=== PATIENT | female | born 1975 | race African-American/Black ===

== ENCOUNTER 2016-04-25 10:32 | Outpatient (CLI) | payer BC, MEDICAID ==
--- NOTE | 2016-04-25 11:31 | Non Stress Test Report ---
Non Stress Test Datetime Report Generated by CPN: 04/25/2016 11:31 DEMOGRAPHIC EGA NST: 33.1 INDICATION Indication for Study: Ordered by Provider; Other MONITORING Monitor Explained: Monitor Explained; Test Explained; Patient Verbalized Understanding Time on Monitor: 04/25/2016 10:36 Time off Monitor: 04/25/2016 11:29 NST Duration: 53 NST INTERVENTIONS NST Interventions: PO Hydration; Reposition Patient Physician Notified NST: Caroline Olivares, CNM BABY A: [id number] BABY A Movement : Present Contraction Frequency : none FHR Baseline : 135 Accelerations : 15X15 Decelerations : None Variability : Moderate 6-25bpm NST Review: Meets Criteria for Reactive NST NST Review and Verified By : Luisito Atkinson RN NST Results: Reactive NST REPORT Report Trigger: Send Report
--- NOTE | 2016-04-26 10:14 | Antepartum Discharge Summary ---
Antepartum DC Datetime Report Generated by CPN: 04/26/2016 10:14 Diet: Regular (04/25/2016 11:51:HI Monahan) Activity: Normal Activity (04/25/2016 11:51:HI Monahan) Instructions Given To: patient (04/25/2016 11:51:HI Monahan) Instructions Understood: Patient Verbalized Understanding; Support Person Verbalized Understanding (04/25/2016 11:51:HI Monahan) Referrals: None (04/25/2016 11:51:HI Monahan) Educational Materials- Other: care notes reviewed and signed for kick counts. Reviewed importance of drinking atleast 3 to 4 [place] pitchers of water daily, frequent small meals . Note for worl given (04/25/2016 11:51:HI Monhaan) Discharged AMA: No (04/25/2016 11:51:HI Monahan) Discharge Date/Time: 04/25/2016 11:38 (04/25/2016 11:51:HI Monahan) Discharged To: Home (04/25/2016 11:51:HI Monahan) Discharge Provider Name: Lester Olivares (04/25/2016 11:51:HI Monahan) Accompanied By: self (04/25/2016 11:51:HI Monahan) Discharge Method: Ambulatory (04/25/2016 11:51:HI Monahan) Condition: Stable (04/25/2016 11:51:HI Monahan) Follow Up With: [facility] (04/25/2016 11:51:Henrietta Camp, RNC) Follow Up On: As Scheduled (04/25/2016 11:51:HI Monahan)
--- NOTE | 2016-04-26 10:15 | L&D Discharge Summary ---
OB Discharge Summary Datetime Report Generated by CPN: 04/26/2016 10:15 DISCHARGE DIAGNOSIS Diagnosis/Symptoms: Reassuring Surveillance - Annotate Details Diagnoses/Symptoms Other: IUP 33.1 weeks AMA with polyhydramnious reactive NST Gestation: 33.1 Number of Babies in Womb: 1 Parity: 4 DIET/ACTIVITY/RESTRICTIONS Diet: Regular Activity: Normal Activity TEACHING/INSTRUCTIONS/REFERRALS Instructions Given To: patient Instructions Understood: Patient Verbalized Understanding; Support Person Verbalized Understanding Referrals: None Educational Materials- Other: care notes reviewed and signed for kick counts. Reviewed importance of drinking atleast 3 to 4 [place] pitchers of water daily, frequent small meals . Note for worl given DISCHARGE INFORMATION Discharged AMA: No Discharge Date/Time: 04/25/2016 11:38 Discharged To: Home Discharge Provider Name: Marshall, J Accompanied By: self Discharge Method: Ambulatory Condition: Stable FOLLOW UP INFORMATION Follow Up With: [facility] Follow Up On: As Scheduled Follow Up Phone Number: [facility] -
--- NOTE | 2016-04-26 10:15 | L&D General Admission ---
General Admit Datetime Report Generated by CPN: 04/26/2016 10:14 Para: 4 (04/25/2016 11:51:HI Monahan) Baby, Number in Womb: 1 (04/25/2016 11:51:HI Monahan) Height (in): 65 (04/25/2016 10:56:QS system process)
--- NOTE | 2016-04-26 10:22 | L&D Flow Sheet ---
LD Flowsheet Datetime Report Generated by CPN: 04/26/2016 10:22 Datetime: 04/25/2016 11:32 Patient Care Comments: See Discharge Summary (Henrietta Camp, RNC) Patient Care Comments: EFM off for discharge to home. (Henrietta Camp, RNC) Datetime: 04/25/2016 11:30 Communication Communication: Provider Orders Received; Report Given to @ J Olivares CNM (Henrietta Camp, RNC) Communication Comments: report of moderate variability, reactive nst and movment stated per pt. Discharge orders received (Henrietta Camp, RNC) Datetime: 04/25/2016 11:04 Uterine Activity Monitor Interventions for UA: [place] Adjusted (Henrietta Camp, RNC) Assessment A Monitor Interventions for FHR: Ultrasound Adjusted (Henrietta Camp, RNC) Patient Care Patient Position/Activity: HOB Lowered; Right Extreme (Henrietta Camp, RNC) Datetime: 04/25/2016 10:41 Vital Signs NBP Sys/Estrella/Mean (mmHg): 122 (QS system process) : 80 (QS system process) : 96 (QS system process) Pulse: 88 (QS system process) LaborFlag: OB Triage (QS system process) Datetime: 03/29/2016 14:10 LaborFlag: OB Triage (QS system process) Datetime: 03/29/2016 13:55 LaborFlag: OB Triage (QS system process) Datetime: 03/29/2016 13:40 LaborFlag: OB Triage (QS system process) Datetime: 03/29/2016 13:25 LaborFlag: OB Triage (QS system process) Datetime: 03/29/2016 13:10 LaborFlag: OB Triage (QS system process) Datetime: 03/29/2016 13:01 LaborFlag: OB Triage (QS system process) Datetime: 03/29/2016 12:55 LaborFlag: OB Triage (QS system process) Datetime: 03/29/2016 12:40 LaborFlag: OB Triage (QS system process)
--- NOTE | 2016-04-27 06:11 | L&D General Admission ---
General Admit Datetime Report Generated by CPN: 04/27/2016 06:00 INFORMATION Patient Age: 40 (02/27/2016 11:10:QS system process) EDC: 06/12/2016 00:00 (02/27/2016 11:14:Rajni Henry RN) : 10 (02/27/2016 11:14:Rajni Henry RN) Para: 4 (04/25/2016 11:51:HI Monahan) Term: 4 (02/27/2016 11:14:Rajni Henry RN) : 0 (02/27/2016 11:14:Rajni Henry RN) Spontaneous Abortions: 0 (02/27/2016 11:14:Rajni Henry RN) Induced Abortions: 5 (02/27/2016 11:14:Rajni Henry RN) Livin (02/27/2016 11:14:Rajni Henry RN) Cesareans: 0 (02/27/2016 11:14:Rajni Henry RN) VBACs: 0 (02/27/2016 11:14:Rajni Henry RN) Ectopic: 0 (02/27/2016 11:14:Rajni Henry RN) Multiple Births: 0 (02/27/2016 11:14:Rajni Henry RN) Baby, Number in Womb: 1 (04/25/2016 11:51:HI Monahan) CARE Primary Child Care Attendant School: [employer] [facility] (02/27/2016 11:14:Rajni Henry RN) Height (in): 65 (04/25/2016 10:56:QS system process) ALLERGIES Medication Allergy: No (02/27/2016 11:14:Rajni Henry RN) Medication Allergies: No Known Allergies (04/25/2016) (04/25/2016 10:56:QS system process) Latex Allergy: No Latex Allergies (02/27/2016 11:14:Rajni Henry RN) Food Allergies: NONE (02/27/2016 11:14:Sagrario Garcia RN) Environmental Allergies: NONE (02/27/2016 11:14:Sagrario Garcia RN) COMMUNICATION Primary Language: Ugandan (02/27/2016 11:14:Rajni Henry RN) Medical Tx Preferred Language: Ugandan (02/27/2016 11:14:Rajni Henry RN) Communication Barrier(s): None (02/27/2016 11:14:Sagrario Garcia RN) DEMOGRAPHICS Address: [address] [place] [phone] (02/27/2016 11:10:QS system process) Zipcode: [phone] (02/27/2016 11:10:QS system process) Home (02/27/2016 11:10:QS system process) Work (04/25/2016 10:33:QS system process) SSN: [id number] (02/27/2016 11:10:QS system process) Next of Kin Name: GANESH HUMPHRIES (02/27/2016 11:10:QS system process) Next of Kin (04/25/2016 10:33:QS system process) Next of Kin Relationship: [place] (02/27/2016 11:10:QS system process) Date of : 1975 (02/27/2016 11:10:QS system process) Marital Status: (04/25/2016 10:33:QS system process) Sex: Female (02/27/2016 11:10:QS system process) Race: (02/27/2016 11:10:QS system process) Ethnicity: Non- or (02/27/2016 11:10:QS system process) Orthodoxy: Pentecostal (02/27/2016 11:10:QS system process) LABS Hemoglobin: 10.9 L (04/11/2016 16:15:QS system process) Hematocrit: 32.8 L (04/11/2016 16:15:QS system process) MCV: 82 (04/11/2016 16:15:QS system process) OB/PREVIOUS HISTORY Current Procedures: Ultrasound (02/27/2016 11:14:Rajni Henry RN) History of Previous : No (02/27/2016 11:14:Rajni Henry RN) History of Gestational Diabetes: No (02/27/2016 11:14:Rajni Henry RN) History of PIH: No (02/27/2016 11:14:Rajni Henry RN) History of Incompetent Cervix: No (02/27/2016 11:14:Rajni Henry RN) History of Placenta Previa/Abrup: No (02/27/2016 11:14:Rajni Henry RN) History of Macrosomia: No (02/27/2016 11:14:Rajni Henry RN) History of IUGR: No (02/27/2016 11:14:Rajni Henry RN) History of Hemorrhage: No (02/27/2016 11:14:Rajni Henry RN) History of Loss/Stillborn: No (02/27/2016 11:14:Rajni Henry RN) History of : No (02/27/2016 11:14:Rajni Henry RN) History of D (Rh) Sensitization: No (02/27/2016 11:14:Rajni Henry RN) History Recurrent Loss/Stillborn: No (02/27/2016 11:14:Rajni Henry RN) History Depression/PP Depression: Yes (02/27/2016 11:14:Rajni Henry RN) History of Uterine Anomaly/BETINA: No (02/27/2016 11:14:Rajni Henry RN) History of Infertility: No (02/27/2016 11:14:Rajni Henry RN) History of ART Treatment: No (02/27/2016 11:14:Rajni Henry RN) History of BETINA: No (02/27/2016 11:14:Rajni Henry RN) MEDICAL HISTORY Med Hx Diabetes: No (02/27/2016 11:14:Rajni Henry RN) Med Hx Hypertension: Yes (02/27/2016 11:14:Rajni Henry RN) Med Hx Heart Disease: No (02/27/2016 11:14:Rajni Henry RN) Med Hx Autoimmune Disorder: No (02/27/2016 11:14:Rajni Henry RN) Med Hx Kidney Disease/UTI: No (02/27/2016 11:14:Rajni Henry RN) Med Hx Neurologic/Epilepsy: No (02/27/2016 11:14:Rajni Henry RN) Med Hx Psychiatric Disorders: No (02/27/2016 11:14:Rajni Henry RN) Med Hx Hepatitis/Liver Disease: No (02/27/2016 11:14:Rajni Henry RN) Med Hx Varicosities/Phlebitis: No (02/27/2016 11:14:Rajni Henry RN) Med Hx Thyroid Dysfunction: No (02/27/2016 11:14:Rajni Henry RN) Med Hx Trauma/Violence: No (02/27/2016 11:14:Rajni Henry RN) Med Hx Blood Transfusion: No (02/27/2016 11:14:Rajni Henry RN) Med Hx Pulmonary (Asthma,TB): No (02/27/2016 11:14:Rajni Henry RN) Med Hx Breast: No (02/27/2016 11:14:Rajni Henry RN) 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 (02/27/2016 11:14:Rajni Henry RN) Med Hx Hospitalization/Surgery: Yes (02/27/2016 11:14:Rajni Henry RN) Med Hx Anesthetic Complications: No (02/27/2016 11:14:Rajni Henry RN) Med Hx Abnormal Pap Smear: No (02/27/2016 11:14:Rajni Henry RN) Other Medical Diseases: No (02/27/2016 11:14:Rajni Henry RN) Med Hx Significant Family Hx: No (02/27/2016 11:14:Rajni Henry RN) Details of Med/Surg Hx: HTN- prior to , depression periodically, vaginal mesh implant 2008, hospitalized with childbirth, gallbladder removal 2013 (02/27/2016 11:14:Rajni Henry RN) INFECTIOUS HISTORY Inf Hx Gonorrhea: Yes (02/27/2016 11:14:Rajni Henry RN) Inf Hx Chlamydia: No (02/27/2016 11:14:Rajni Henry RN) Inf Hx Syphilis: No (02/27/2016 11:14:Rajni Henry RN) Inf Hx HIV/AIDS: No (02/27/2016 11:14:Rajni Henry RN) Inf Hx Human Papilloma Virus: No (02/27/2016 11:14:Rajni Henry RN) Inf Hx Pt/Partner Genital Herpes: No (02/27/2016 11:14:Rajni Henry RN) Inf Hx Tuberculosis/Exposure: No (02/27/2016 11:14:Rajni Henry RN) Inf Hx Hepatitis B,C: No (02/27/2016 11:14:Rajni Henry RN) Inf Hx Rash or Viral Illness: No (02/27/2016 11:14:Rajni Henry RN) Details of Infectious Hx: 2015- (02/27/2016 11:14:Rajni Henry RN) GENETIC HISTORY Gen Hx Age >=35 at SAJI: No (02/27/2016 11:14:Rajni Henry RN) Gen Hx Thalassemia: No (02/27/2016 11:14:Rajni Henry RN) Gen Hx Congenital Heart Defect: No (02/27/2016 11:14:Rajni Henry RN) Gen Hx Neural Tube Defect: No (02/27/2016 11:14:Rajni Henry RN) Gen Hx Down's Syndrome: Yes (02/27/2016 11:14:Rajni Henry RN) Gen Hx Rafat-Sachs: No (02/27/2016 11:14:Rajni Henry RN) Gen Hx Meena: No (02/27/2016 11:14:Rajni Henry RN) Gen Hx Familial Dysautonomia: No (02/27/2016 11:14:Rajni Henry RN) Gen Hx Sickle Cell Disease/Trait: No (02/27/2016 11:14:Rajni Henry RN) Gen Hx Hemophilia/Blood Disorder: No (02/27/2016 11:14:Rajni Henry RN) Gen Hx Muscular Dystrophy: No (02/27/2016 11:14:Rajni Henry RN) Gen Hx Cystic Fibrosis: No (02/27/2016 11:14:Rajni Henry RN) Gen Hx Huntingtons Chorea: No (02/27/2016 11:14:Rajni Henry RN) Gen Hx Mental Retardation/Autism: No (02/27/2016 11:14:Rajni Henry RN) Gen Hx Tested for Fragile X: No (02/27/2016 11:14:Rajni Henry RN) Gen Hx Other Inher/Chromosomal: No (02/27/2016 11:14:Rajni Henry RN) Gen Hx Maternal Metabolic DO: No (02/27/2016 11:14:Rajni Henry RN) Gen Hx Pt Father or FOB Defect: No (02/27/2016 11:14:Rajni Henry RN) Gen Hx Other Genetic History: No (02/27/2016 11:14:Rajni Henry RN) Gen Hx Drugs/Meds since LMP: No (02/27/2016 11:14:Rajni Henry RN) Details of Genetic History: pt sister (02/27/2016 11:14:Rajni Henry RN)
--- NOTE | 2016-04-27 06:11 | L&D Current Admission ---
Current Admit Datetime Report Generated by CPN: 04/27/2016 06:00 ADMISSION INFORMATION Chief Complaint: Headache; Visual Disturbances (03/29/2016 12:40:Sagrario Garcia, MAX)
--- NOTE | 2016-04-28 06:10 | L&D Current Admission ---
Current Admit Datetime Report Generated by CPN: 04/28/2016 06:00 ADMISSION INFORMATION Chief Complaint: Headache; Visual Disturbances (03/29/2016 12:40:Sagrario Garcia, MAX)
--- NOTE | 2016-04-28 06:10 | L&D General Admission ---
General Admit Datetime Report Generated by CPN: 04/28/2016 06:00 INFORMATION Patient Age: 40 (02/27/2016 11:10:QS system process) EDC: 06/12/2016 00:00 (02/27/2016 11:14:Rajni Henry RN) : 10 (02/27/2016 11:14:Rajni Henry RN) Para: 4 (04/25/2016 11:51:HI Monahan) Term: 4 (02/27/2016 11:14:Rajni Henry RN) : 0 (02/27/2016 11:14:Rajni Henry RN) Spontaneous Abortions: 0 (02/27/2016 11:14:Rajni Henry RN) Induced Abortions: 5 (02/27/2016 11:14:Rajni Henry RN) Livin (02/27/2016 11:14:Rajni Henry RN) Cesareans: 0 (02/27/2016 11:14:Rajni Henry RN) VBACs: 0 (02/27/2016 11:14:Rajni Henry RN) Ectopic: 0 (02/27/2016 11:14:Rajni Henry RN) Multiple Births: 0 (02/27/2016 11:14:Rajni Henry RN) Baby, Number in Womb: 1 (04/25/2016 11:51:HI Monahan) CARE Primary Plan Consultant: [employer] [facility] (02/27/2016 11:14:Rajni Henry RN) Height (in): 65 (04/25/2016 10:56:QS system process) ALLERGIES Medication Allergy: No (02/27/2016 11:14:Rajni Henry RN) Medication Allergies: No Known Allergies (04/25/2016) (04/25/2016 10:56:QS system process) Latex Allergy: No Latex Allergies (02/27/2016 11:14:Rajni Henry RN) Food Allergies: NONE (02/27/2016 11:14:Sagrario Garcia RN) Environmental Allergies: NONE (02/27/2016 11:14:Sagrario Garcia RN) COMMUNICATION Primary Language: Filipino (02/27/2016 11:14:Rajni Henry RN) Medical Tx Preferred Language: Filipino (02/27/2016 11:14:Rajni Henry RN) Communication Barrier(s): None (02/27/2016 11:14:Sagrario Garcia RN) DEMOGRAPHICS Address: [address] [place] [phone] (02/27/2016 11:10:QS system process) Zipcode: [phone] (02/27/2016 11:10:QS system process) Home (02/27/2016 11:10:QS system process) Work (04/25/2016 10:33:QS system process) SSN: [id number] (02/27/2016 11:10:QS system process) Next of Kin Name: GANESH HUMPHRIES (02/27/2016 11:10:QS system process) Next of Kin (04/25/2016 10:33:QS system process) Next of Kin Relationship: [place] (02/27/2016 11:10:QS system process) Date of : 1975 (02/27/2016 11:10:QS system process) Marital Status: (04/25/2016 10:33:QS system process) Sex: Female (02/27/2016 11:10:QS system process) Race: (02/27/2016 11:10:QS system process) Ethnicity: Non- or (02/27/2016 11:10:QS system process) Restorationist: Taoist (02/27/2016 11:10:QS system process) LABS Hemoglobin: 10.9 L (04/11/2016 16:15:QS system process) Hematocrit: 32.8 L (04/11/2016 16:15:QS system process) MCV: 82 (04/11/2016 16:15:QS system process) OB/PREVIOUS HISTORY Current Procedures: Ultrasound (02/27/2016 11:14:Rajni Henry RN) History of Previous : No (02/27/2016 11:14:Rajni Henry RN) History of Gestational Diabetes: No (02/27/2016 11:14:Rajni Henry RN) History of PIH: No (02/27/2016 11:14:Rajni Henry RN) History of Incompetent Cervix: No (02/27/2016 11:14:Rajni Henry RN) History of Placenta Previa/Abrup: No (02/27/2016 11:14:Rajni Henry RN) History of Macrosomia: No (02/27/2016 11:14:Rajni Henry RN) History of IUGR: No (02/27/2016 11:14:Rajni Henry RN) History of Hemorrhage: No (02/27/2016 11:14:Rajni Henry RN) History of Loss/Stillborn: No (02/27/2016 11:14:Rajni Henry RN) History of : No (02/27/2016 11:14:Rajni Henry RN) History of D (Rh) Sensitization: No (02/27/2016 11:14:Rajni Henry RN) History Recurrent Loss/Stillborn: No (02/27/2016 11:14:Rajni Henry RN) History Depression/PP Depression: Yes (02/27/2016 11:14:Rajni Henry RN) History of Uterine Anomaly/BETINA: No (02/27/2016 11:14:Rajni Henry RN) History of Infertility: No (02/27/2016 11:14:Rajni Henry RN) History of ART Treatment: No (02/27/2016 11:14:Rajni Henry RN) History of BETINA: No (02/27/2016 11:14:Rajni Henry RN) MEDICAL HISTORY Med Hx Diabetes: No (02/27/2016 11:14:Rajni Henry RN) Med Hx Hypertension: Yes (02/27/2016 11:14:Rajni Henry RN) Med Hx Heart Disease: No (02/27/2016 11:14:Rajni Henry RN) Med Hx Autoimmune Disorder: No (02/27/2016 11:14:Rajni Henry RN) Med Hx Kidney Disease/UTI: No (02/27/2016 11:14:Rajni Henry RN) Med Hx Neurologic/Epilepsy: No (02/27/2016 11:14:Rajni Henyr RN) Med Hx Psychiatric Disorders: No (02/27/2016 11:14:Rajni Henry RN) Med Hx Hepatitis/Liver Disease: No (02/27/2016 11:14:Rajni Henry RN) Med Hx Varicosities/Phlebitis: No (02/27/2016 11:14:Rajni Henry RN) Med Hx Thyroid Dysfunction: No (02/27/2016 11:14:Rajni Henry RN) Med Hx Trauma/Violence: No (02/27/2016 11:14:Rajni Henry RN) Med Hx Blood Transfusion: No (02/27/2016 11:14:Rajni Henry RN) Med Hx Pulmonary (Asthma,TB): No (02/27/2016 11:14:Rajni Henry RN) Med Hx Breast: No (02/27/2016 11:14:Rajni Henry RN) 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 (02/27/2016 11:14:Rajni Henry RN) Med Hx Hospitalization/Surgery: Yes (02/27/2016 11:14:Rajni Henry RN) Med Hx Anesthetic Complications: No (02/27/2016 11:14:Rajni Henry RN) Med Hx Abnormal Pap Smear: No (02/27/2016 11:14:Rajni Henry RN) Other Medical Diseases: No (02/27/2016 11:14:Rajni Henry RN) Med Hx Significant Family Hx: No (02/27/2016 11:14:Rajni Henry RN) Details of Med/Surg Hx: HTN- prior to , depression periodically, vaginal mesh implant 2008, hospitalized with childbirth, gallbladder removal 2013 (02/27/2016 11:14:Rajni Henry RN) INFECTIOUS HISTORY Inf Hx Gonorrhea: Yes (02/27/2016 11:14:Rajni Henry RN) Inf Hx Chlamydia: No (02/27/2016 11:14:Rajni Henry RN) Inf Hx Syphilis: No (02/27/2016 11:14:Rajni Henry RN) Inf Hx HIV/AIDS: No (02/27/2016 11:14:Rajni Henry RN) Inf Hx Human Papilloma Virus: No (02/27/2016 11:14:Rajni Henry RN) Inf Hx Pt/Partner Genital Herpes: No (02/27/2016 11:14:Rajni Henry RN) Inf Hx Tuberculosis/Exposure: No (02/27/2016 11:14:Rajni Henry RN) Inf Hx Hepatitis B,C: No (02/27/2016 11:14:Rajni Henry RN) Inf Hx Rash or Viral Illness: No (02/27/2016 11:14:Rajni Henry RN) Details of Infectious Hx: 2015- (02/27/2016 11:14:Rajni Henry RN) GENETIC HISTORY Gen Hx Age >=35 at SAJI: No (02/27/2016 11:14:Rajni Henry RN) Gen Hx Thalassemia: No (02/27/2016 11:14:Rajni Henry RN) Gen Hx Congenital Heart Defect: No (02/27/2016 11:14:Rajni Henry RN) Gen Hx Neural Tube Defect: No (02/27/2016 11:14:Rajni Henry RN) Gen Hx Down's Syndrome: Yes (02/27/2016 11:14:Rajni Henry RN) Gen Hx Rafat-Sachs: No (02/27/2016 11:14:Rajni Henry RN) Gen Hx Meena: No (02/27/2016 11:14:Rajni Henry RN) Gen Hx Familial Dysautonomia: No (02/27/2016 11:14:Rajni Henry RN) Gen Hx Sickle Cell Disease/Trait: No (02/27/2016 11:14:Rajni Henry RN) Gen Hx Hemophilia/Blood Disorder: No (02/27/2016 11:14:Rajni Henry RN) Gen Hx Muscular Dystrophy: No (02/27/2016 11:14:Rajni Henry RN) Gen Hx Cystic Fibrosis: No (02/27/2016 11:14:Rajni Henry RN) Gen Hx Huntingtons Chorea: No (02/27/2016 11:14:Rajni Henry RN) Gen Hx Mental Retardation/Autism: No (02/27/2016 11:14:Rajni Henry RN) Gen Hx Tested for Fragile X: No (02/27/2016 11:14:Rajni Henry RN) Gen Hx Other Inher/Chromosomal: No (02/27/2016 11:14:Rajni Henry RN) Gen Hx Maternal Metabolic DO: No (02/27/2016 11:14:Rajni Henry RN) Gen Hx Pt Father or FOB Defect: No (02/27/2016 11:14:Rajni Henry RN) Gen Hx Other Genetic History: No (02/27/2016 11:14:Rajni Henry RN) Gen Hx Drugs/Meds since LMP: No (02/27/2016 11:14:Rajni Henry RN) Details of Genetic History: pt sister (02/27/2016 11:14:Rajni Henry RN)
--- NOTE | 2016-04-29 06:10 | L&D Current Admission ---
Current Admit Datetime Report Generated by CPN: 04/29/2016 06:00 ADMISSION INFORMATION Chief Complaint: Headache; Visual Disturbances (03/29/2016 12:40:Sagrario Garcia, MAX)
--- NOTE | 2016-04-29 06:10 | L&D General Admission ---
General Admit Datetime Report Generated by CPN: 04/29/2016 06:00 INFORMATION Patient Age: 40 (02/27/2016 11:10:QS system process) EDC: 06/12/2016 00:00 (02/27/2016 11:14:Rajni Henry RN) : 10 (02/27/2016 11:14:Rajni Henry RN) Para: 4 (04/25/2016 11:51:HI Monahan) Term: 4 (02/27/2016 11:14:Rajni Henry RN) : 0 (02/27/2016 11:14:Rajni Henry RN) Spontaneous Abortions: 0 (02/27/2016 11:14:Rajni Hnery RN) Induced Abortions: 5 (02/27/2016 11:14:Rajni Henry RN) Livin (02/27/2016 11:14:Rajni Henry RN) Cesareans: 0 (02/27/2016 11:14:Rajni Henry RN) VBACs: 0 (02/27/2016 11:14:Rajni Henry RN) Ectopic: 0 (02/27/2016 11:14:Rajni Henry RN) Multiple Births: 0 (02/27/2016 11:14:Rajni Henry RN) Baby, Number in Womb: 1 (04/25/2016 11:51:HI Monahan) CARE Primary Chef German: [employer] [facility] (02/27/2016 11:14:Rajni Henry RN) Height (in): 65 (04/25/2016 10:56:QS system process) ALLERGIES Medication Allergy: No (02/27/2016 11:14:Rajni Henry RN) Medication Allergies: No Known Allergies (04/25/2016) (04/25/2016 10:56:QS system process) Latex Allergy: No Latex Allergies (02/27/2016 11:14:Rajni Henry RN) Food Allergies: NONE (02/27/2016 11:14:Sagrario Garcia RN) Environmental Allergies: NONE (02/27/2016 11:14:Sagrario Garcia RN) COMMUNICATION Primary Language: Sri Lankan (02/27/2016 11:14:Rajni Henry RN) Medical Tx Preferred Language: Sri Lankan (02/27/2016 11:14:Rajni Henry RN) Communication Barrier(s): None (02/27/2016 11:14:Sagrario Garcia RN) DEMOGRAPHICS Address: [address] [place] [phone] (02/27/2016 11:10:QS system process) Zipcode: [phone] (02/27/2016 11:10:QS system process) Home (02/27/2016 11:10:QS system process) Work (04/25/2016 10:33:QS system process) SSN: [id number] (02/27/2016 11:10:QS system process) Next of Kin Name: GANESH HUMPHRIES (02/27/2016 11:10:QS system process) Next of Kin (04/25/2016 10:33:QS system process) Next of Kin Relationship: MO (02/27/2016 11:10:QS system process) Date of : 1975 (02/27/2016 11:10:QS system process) Marital Status: (04/25/2016 10:33:QS system process) Sex: Female (02/27/2016 11:10:QS system process) Race: (02/27/2016 11:10:QS system process) Ethnicity: Non- or (02/27/2016 11:10:QS system process) Church: Buddhism (02/27/2016 11:10:QS system process) LABS Hemoglobin: 10.9 L (04/11/2016 16:15:QS system process) Hematocrit: 32.8 L (04/11/2016 16:15:QS system process) MCV: 82 (04/11/2016 16:15:QS system process) OB/PREVIOUS HISTORY Current Procedures: Ultrasound (02/27/2016 11:14:Rajni Henry RN) History of Previous : No (02/27/2016 11:14:Rajni Henry RN) History of Gestational Diabetes: No (02/27/2016 11:14:Rajni Henry RN) History of PIH: No (02/27/2016 11:14:Rajni Henry RN) History of Incompetent Cervix: No (02/27/2016 11:14:Rajni Henry RN) History of Placenta Previa/Abrup: No (02/27/2016 11:14:Rajni Henry RN) History of Macrosomia: No (02/27/2016 11:14:Rajni Henry RN) History of IUGR: No (02/27/2016 11:14:Rajni Henry RN) History of Hemorrhage: No (02/27/2016 11:14:Rajni Henry RN) History of Loss/Stillborn: No (02/27/2016 11:14:Rajni Henry RN) History of : No (02/27/2016 11:14:Rajni Henry RN) History of D (Rh) Sensitization: No (02/27/2016 11:14:Rajni Henry RN) History Recurrent Loss/Stillborn: No (02/27/2016 11:14:Rajni Henry RN) History Depression/PP Depression: Yes (02/27/2016 11:14:Rajni Henry RN) History of Uterine Anomaly/BETINA: No (02/27/2016 11:14:Rajni Henry RN) History of Infertility: No (02/27/2016 11:14:Rajni Henry RN) History of ART Treatment: No (02/27/2016 11:14:Rajni eHnry RN) History of BETINA: No (02/27/2016 11:14:Rajni Henry RN) MEDICAL HISTORY Med Hx Diabetes: No (02/27/2016 11:14:Rajni Henry RN) Med Hx Hypertension: Yes (02/27/2016 11:14:Rajni Henry RN) Med Hx Heart Disease: No (02/27/2016 11:14:Rajni Henry RN) Med Hx Autoimmune Disorder: No (02/27/2016 11:14:Rajni Henry RN) Med Hx Kidney Disease/UTI: No (02/27/2016 11:14:Rajni Henry RN) Med Hx Neurologic/Epilepsy: No (02/27/2016 11:14:Rajni Henry RN) Med Hx Psychiatric Disorders: No (02/27/2016 11:14:Rajni Henry RN) Med Hx Hepatitis/Liver Disease: No (02/27/2016 11:14:Rajni Henry RN) Med Hx Varicosities/Phlebitis: No (02/27/2016 11:14:Rajni Henry RN) Med Hx Thyroid Dysfunction: No (02/27/2016 11:14:Rajni Henry RN) Med Hx Trauma/Violence: No (02/27/2016 11:14:Rajni Henry RN) Med Hx Blood Transfusion: No (02/27/2016 11:14:Rajni Henry RN) Med Hx Pulmonary (Asthma,TB): No (02/27/2016 11:14:Rajni Henry RN) Med Hx Breast: No (02/27/2016 11:14:Rajni Henry RN) 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 (02/27/2016 11:14:Rajni Henry RN) Med Hx Hospitalization/Surgery: Yes (02/27/2016 11:14:Rajni Henry RN) Med Hx Anesthetic Complications: No (02/27/2016 11:14:Rajni Henry RN) Med Hx Abnormal Pap Smear: No (02/27/2016 11:14:Rajni Henry RN) Other Medical Diseases: No (02/27/2016 11:14:Rajni Henry RN) Med Hx Significant Family Hx: No (02/27/2016 11:14:Rajni Henry RN) Details of Med/Surg Hx: HTN- prior to , depression periodically, vaginal mesh implant 2008, hospitalized with childbirth, gallbladder removal 2013 (02/27/2016 11:14:Rajni Henry RN) INFECTIOUS HISTORY Inf Hx Gonorrhea: Yes (02/27/2016 11:14:Rajni Henry RN) Inf Hx Chlamydia: No (02/27/2016 11:14:Rajni Henry RN) Inf Hx Syphilis: No (02/27/2016 11:14:Rajni Henry RN) Inf Hx HIV/AIDS: No (02/27/2016 11:14:Rajni Henry RN) Inf Hx Human Papilloma Virus: No (02/27/2016 11:14:Rajni Henry RN) Inf Hx Pt/Partner Genital Herpes: No (02/27/2016 11:14:Rajni Henry RN) Inf Hx Tuberculosis/Exposure: No (02/27/2016 11:14:Rajni Henry RN) Inf Hx Hepatitis B,C: No (02/27/2016 11:14:Rajni Henry RN) Inf Hx Rash or Viral Illness: No (02/27/2016 11:14:Rajni Henry RN) Details of Infectious Hx: 2015- (02/27/2016 11:14:Rajni Henry RN) GENETIC HISTORY Gen Hx Age >=35 at SAJI: No (02/27/2016 11:14:Rajni Henry RN) Gen Hx Thalassemia: No (02/27/2016 11:14:Rajni Henry RN) Gen Hx Congenital Heart Defect: No (02/27/2016 11:14:Rajni Henry RN) Gen Hx Neural Tube Defect: No (02/27/2016 11:14:Rajni Henry RN) Gen Hx Down's Syndrome: Yes (02/27/2016 11:14:Rajni Henry RN) Gen Hx Rafat-Sachs: No (02/27/2016 11:14:Rajni Henry RN) Gen Hx Meena: No (02/27/2016 11:14:Rajni Henry RN) Gen Hx Familial Dysautonomia: No (02/27/2016 11:14:Rajni Henry RN) Gen Hx Sickle Cell Disease/Trait: No (02/27/2016 11:14:Rajni Henry RN) Gen Hx Hemophilia/Blood Disorder: No (02/27/2016 11:14:Rajni Henry RN) Gen Hx Muscular Dystrophy: No (02/27/2016 11:14:Rajni Henry RN) Gen Hx Cystic Fibrosis: No (02/27/2016 11:14:Rajni Henry RN) Gen Hx Huntingtons Chorea: No (02/27/2016 11:14:Rajni Henry RN) Gen Hx Mental Retardation/Autism: No (02/27/2016 11:14:Rajni Henry RN) Gen Hx Tested for Fragile X: No (02/27/2016 11:14:Rajni Henry RN) Gen Hx Other Inher/Chromosomal: No (02/27/2016 11:14:Rajni Henry RN) Gen Hx Maternal Metabolic DO: No (02/27/2016 11:14:Rajni Henry RN) Gen Hx Pt Father or FOB Defect: No (02/27/2016 11:14:Rajni Henry RN) Gen Hx Other Genetic History: No (02/27/2016 11:14:Rajni Henry RN) Gen Hx Drugs/Meds since LMP: No (02/27/2016 11:14:Rajni Henry RN) Details of Genetic History: pt sister (02/27/2016 11:14:Rajni Henry RN)
--- NOTE | 2016-04-30 06:12 | L&D Current Admission ---
Current Admit Datetime Report Generated by CPN: 04/30/2016 06:00 ADMISSION INFORMATION Chief Complaint: Headache; Visual Disturbances (03/29/2016 12:40:Sagrario Garcia, MAX)
--- NOTE | 2016-04-30 06:12 | L&D General Admission ---
General Admit Datetime Report Generated by CPN: 04/30/2016 06:00 INFORMATION Patient Age: 40 (02/27/2016 11:10:QS system process) EDC: 06/12/2016 00:00 (02/27/2016 11:14:Rajni Henry RN) : 10 (02/27/2016 11:14:Rajni Henry RN) Para: 4 (04/25/2016 11:51:HI Monahan) Term: 4 (02/27/2016 11:14:Rajni Henry RN) : 0 (02/27/2016 11:14:Rajni Henry RN) Spontaneous Abortions: 0 (02/27/2016 11:14:Rajni Henry RN) Induced Abortions: 5 (02/27/2016 11:14:Rajni Henry RN) Livin (02/27/2016 11:14:Rajni Henry RN) Cesareans: 0 (02/27/2016 11:14:Rajni Henry RN) VBACs: 0 (02/27/2016 11:14:Rajni Henry RN) Ectopic: 0 (02/27/2016 11:14:Rajni Henry RN) Multiple Births: 0 (02/27/2016 11:14:Rajni Henry RN) Baby, Number in Womb: 1 (04/25/2016 11:51:HI Monahan) CARE Primary Pantry Chef: [employer] [facility] (02/27/2016 11:14:Rajni Henry RN) Height (in): 65 (04/25/2016 10:56:QS system process) ALLERGIES Medication Allergy: No (02/27/2016 11:14:Rajni Henry RN) Medication Allergies: No Known Allergies (04/25/2016) (04/25/2016 10:56:QS system process) Latex Allergy: No Latex Allergies (02/27/2016 11:14:Rajni Henry RN) Food Allergies: NONE (02/27/2016 11:14:Sagrario Garcia RN) Environmental Allergies: NONE (02/27/2016 11:14:Sagrario Garcia RN) COMMUNICATION Primary Language: Sudanese (02/27/2016 11:14:Rajni Henry RN) Medical Tx Preferred Language: Sudanese (02/27/2016 11:14:Rajni Henry RN) Communication Barrier(s): None (02/27/2016 11:14:Sagrario Garcia RN) DEMOGRAPHICS Address: [address] [place] [phone] (02/27/2016 11:10:QS system process) Zipcode: [phone] (02/27/2016 11:10:QS system process) Home (02/27/2016 11:10:QS system process) Work (04/25/2016 10:33:QS system process) SSN: [id number] (02/27/2016 11:10:QS system process) Next of Kin Name: GANESH HUMPHRIES (02/27/2016 11:10:QS system process) Next of Kin (04/25/2016 10:33:QS system process) Next of Kin Relationship: MO (02/27/2016 11:10:QS system process) Date of : 1975 (02/27/2016 11:10:QS system process) Marital Status: (04/25/2016 10:33:QS system process) Sex: Female (02/27/2016 11:10:QS system process) Race: (02/27/2016 11:10:QS system process) Ethnicity: Non- or (02/27/2016 11:10:QS system process) Tenriism: Orthodox (02/27/2016 11:10:QS system process) LABS Hemoglobin: 10.9 L (04/11/2016 16:15:QS system process) Hematocrit: 32.8 L (04/11/2016 16:15:QS system process) MCV: 82 (04/11/2016 16:15:QS system process) OB/PREVIOUS HISTORY Current Procedures: Ultrasound (02/27/2016 11:14:Rajni Henry RN) History of Previous : No (02/27/2016 11:14:Rajni Henry RN) History of Gestational Diabetes: No (02/27/2016 11:14:Rajni Henry RN) History of PIH: No (02/27/2016 11:14:Rajni Henry RN) History of Incompetent Cervix: No (02/27/2016 11:14:Rajni Henry RN) History of Placenta Previa/Abrup: No (02/27/2016 11:14:Rajni Henry RN) History of Macrosomia: No (02/27/2016 11:14:Rajni Henry RN) History of IUGR: No (02/27/2016 11:14:Rajni Henry RN) History of Hemorrhage: No (02/27/2016 11:14:Rajni Henry RN) History of Loss/Stillborn: No (02/27/2016 11:14:Rajni Henry RN) History of : No (02/27/2016 11:14:Rajni Henry RN) History of D (Rh) Sensitization: No (02/27/2016 11:14:Rajni Henry RN) History Recurrent Loss/Stillborn: No (02/27/2016 11:14:Rajni Henry RN) History Depression/PP Depression: Yes (02/27/2016 11:14:Rajni Henry RN) History of Uterine Anomaly/BETINA: No (02/27/2016 11:14:Rajni Henry RN) History of Infertility: No (02/27/2016 11:14:Rajni Henry RN) History of ART Treatment: No (02/27/2016 11:14:Rajni Henry RN) History of BETINA: No (02/27/2016 11:14:Rajni Henry RN) MEDICAL HISTORY Med Hx Diabetes: No (02/27/2016 11:14:Rajni Henry RN) Med Hx Hypertension: Yes (02/27/2016 11:14:Rajni Henry RN) Med Hx Heart Disease: No (02/27/2016 11:14:Rajni Henry RN) Med Hx Autoimmune Disorder: No (02/27/2016 11:14:Rajni Henry RN) Med Hx Kidney Disease/UTI: No (02/27/2016 11:14:Rajni Henry RN) Med Hx Neurologic/Epilepsy: No (02/27/2016 11:14:Rajni Henry RN) Med Hx Psychiatric Disorders: No (02/27/2016 11:14:Rajni Henry RN) Med Hx Hepatitis/Liver Disease: No (02/27/2016 11:14:Rajni Henry RN) Med Hx Varicosities/Phlebitis: No (02/27/2016 11:14:Rajni Henry RN) Med Hx Thyroid Dysfunction: No (02/27/2016 11:14:Rajni Henry RN) Med Hx Trauma/Violence: No (02/27/2016 11:14:Rajni Henry RN) Med Hx Blood Transfusion: No (02/27/2016 11:14:Rajni Henry RN) Med Hx Pulmonary (Asthma,TB): No (02/27/2016 11:14:Rajni Henry RN) Med Hx Breast: No (02/27/2016 11:14:Rajni Henry RN) Med Hx 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 Surgery: No (02/27/2016 11:14:Rajni Henry RN) Med Hx Hospitalization/Surgery: Yes (02/27/2016 11:14:Rajni Henry RN) Med Hx Anesthetic Complications: No (02/27/2016 11:14:Rajni Henry RN) Med Hx Abnormal Pap Smear: No (02/27/2016 11:14:Rajni Henry RN) Other Medical Diseases: No (02/27/2016 11:14:Rajni Henry RN) Med Hx Significant Family Hx: No (02/27/2016 11:14:Rajni Henry RN) Details of Med/Surg Hx: HTN- prior to , depression periodically, vaginal mesh implant 2008, hospitalized with childbirth, gallbladder removal 2013 (02/27/2016 11:14:Rajni Henry RN) INFECTIOUS HISTORY Inf Hx Gonorrhea: Yes (02/27/2016 11:14:Rajni Henry RN) Inf Hx Chlamydia: No (02/27/2016 11:14:Rajni Henry RN) Inf Hx Syphilis: No (02/27/2016 11:14:Rajni Henry RN) Inf Hx HIV/AIDS: No (02/27/2016 11:14:Rajni Henry RN) Inf Hx Human Papilloma Virus: No (02/27/2016 11:14:Rajni Henry RN) Inf Hx Pt/Partner Genital Herpes: No (02/27/2016 11:14:Rajni Henry RN) Inf Hx Tuberculosis/Exposure: No (02/27/2016 11:14:Rajni Henry RN) Inf Hx Hepatitis B,C: No (02/27/2016 11:14:Rajni Henry RN) Inf Hx Rash or Viral Illness: No (02/27/2016 11:14:Rajni Henry RN) Details of Infectious Hx: 2015- (02/27/2016 11:14:Rajni Henry RN) GENETIC HISTORY Gen Hx Age >=35 at SAJI: No (02/27/2016 11:14:Rajni Henry RN) Gen Hx Thalassemia: No (02/27/2016 11:14:Rajni Henry RN) Gen Hx Congenital Heart Defect: No (02/27/2016 11:14:Rajni Henry RN) Gen Hx Neural Tube Defect: No (02/27/2016 11:14:Rajni Henry RN) Gen Hx Down's Syndrome: Yes (02/27/2016 11:14:Rajni Henry RN) Gen Hx Rafat-Sachs: No (02/27/2016 11:14:Rajni Henry RN) Gen Hx Meena: No (02/27/2016 11:14:Rajni Henry RN) Gen Hx Familial Dysautonomia: No (02/27/2016 11:14:Rajni Henry RN) Gen Hx Sickle Cell Disease/Trait: No (02/27/2016 11:14:Rajni Henry RN) Gen Hx Hemophilia/Blood Disorder: No (02/27/2016 11:14:Rajni Henry RN) Gen Hx Muscular Dystrophy: No (02/27/2016 11:14:Rajni Henry RN) Gen Hx Cystic Fibrosis: No (02/27/2016 11:14:Rajni Henry RN) Gen Hx Huntingtons Chorea: No (02/27/2016 11:14:Rajni Henry RN) Gen Hx Mental Retardation/Autism: No (02/27/2016 11:14:Rajni Henry RN) Gen Hx Tested for Fragile X: No (02/27/2016 11:14:Rajni Henry RN) Gen Hx Other Inher/Chromosomal: No (02/27/2016 11:14:Rajni Henry RN) Gen Hx Maternal Metabolic DO: No (02/27/2016 11:14:Rajni Henry RN) Gen Hx Pt Father or FOB Defect: No (02/27/2016 11:14:Rajni Henry RN) Gen Hx Other Genetic History: No (02/27/2016 11:14:Rajni Henry RN) Gen Hx Drugs/Meds since LMP: No (02/27/2016 11:14:Rajni Henry RN) Details of Genetic History: pt sister (02/27/2016 11:14:Rajni Henry RN)
--- NOTE | 2016-05-01 06:10 | L&D General Admission ---
General Admit Datetime Report Generated by CPN: 05/01/2016 06:00 INFORMATION Patient Age: 40 (02/27/2016 11:10:QS system process) EDC: 06/12/2016 00:00 (02/27/2016 11:14:Rajni Henry RN) : 10 (02/27/2016 11:14:Rajni Henry RN) Para: 4 (04/25/2016 11:51:HI Monahan) Term: 4 (02/27/2016 11:14:Rajni Henry RN) : 0 (02/27/2016 11:14:Rajni Henry RN) Spontaneous Abortions: 0 (02/27/2016 11:14:Rajni Henry RN) Induced Abortions: 5 (02/27/2016 11:14:Rajni Henry RN) Livin (02/27/2016 11:14:Rajni Henry RN) Cesareans: 0 (02/27/2016 11:14:Rajni Henry RN) VBACs: 0 (02/27/2016 11:14:Rajni Henry RN) Ectopic: 0 (02/27/2016 11:14:Rajni Henry RN) Multiple Births: 0 (02/27/2016 11:14:Rajni Henry RN) Baby, Number in Womb: 1 (04/25/2016 11:51:HI Monahan) CARE 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: [employer] [facility] (02/27/2016 11:14:Rajni Henry RN) Height (in): 65 (04/25/2016 10:56:QS system process) ALLERGIES Medication Allergy: No (02/27/2016 11:14:Rajni Henry RN) Medication Allergies: No Known Allergies (04/25/2016) (04/25/2016 10:56:QS system process) Latex Allergy: No Latex Allergies (02/27/2016 11:14:Rajni Henry RN) Food Allergies: NONE (02/27/2016 11:14:Sagrario Garcia RN) Environmental Allergies: NONE (02/27/2016 11:14:Sagrario Garcia RN) COMMUNICATION Primary Language: Canadian (02/27/2016 11:14:Rajni Henry RN) Medical Tx Preferred Language: Canadian (02/27/2016 11:14:Rajni Henry RN) Communication Barrier(s): None (02/27/2016 11:14:Sagrario Garcia RN) DEMOGRAPHICS Address: [address] [place] [phone] (02/27/2016 11:10:QS system process) Zipcode: [phone] (02/27/2016 11:10:QS system process) Home (02/27/2016 11:10:QS system process) Work (04/25/2016 10:33:QS system process) SSN: [id number] (02/27/2016 11:10:QS system process) Next of Kin Name: GANESH HUMPHRIES (02/27/2016 11:10:QS system process) Next of Kin (04/25/2016 10:33:QS system process) Next of Kin Relationship: [place] (02/27/2016 11:10:QS system process) Date of : 1975 (02/27/2016 11:10:QS system process) Marital Status: (04/25/2016 10:33:QS system process) Sex: Female (02/27/2016 11:10:QS system process) Race: (02/27/2016 11:10:QS system process) Ethnicity: Non- or (02/27/2016 11:10:QS system process) Buddhist: Congregation (02/27/2016 11:10:QS system process) LABS Hemoglobin: 10.9 L (04/11/2016 16:15:QS system process) Hematocrit: 32.8 L (04/11/2016 16:15:QS system process) MCV: 82 (04/11/2016 16:15:QS system process) OB/PREVIOUS HISTORY Current Procedures: Ultrasound (02/27/2016 11:14:Rajni Henry RN) History of Previous : No (02/27/2016 11:14:Rajni Henry RN) History of Gestational Diabetes: No (02/27/2016 11:14:Rajni Henry RN) History of PIH: No (02/27/2016 11:14:Rajni Henry RN) History of Incompetent Cervix: No (02/27/2016 11:14:Rajni Henry RN) History of Placenta Previa/Abrup: No (02/27/2016 11:14:Rajni Henry RN) History of Macrosomia: No (02/27/2016 11:14:Rajni Henry RN) History of IUGR: No (02/27/2016 11:14:Rajni Henry RN) History of Hemorrhage: No (02/27/2016 11:14:Rajni Henry RN) History of Loss/Stillborn: No (02/27/2016 11:14:Rajni Henry RN) History of : No (02/27/2016 11:14:Rajni Henry RN) History of D (Rh) Sensitization: No (02/27/2016 11:14:Rajni Henry RN) History Recurrent Loss/Stillborn: No (02/27/2016 11:14:Rajni Henry RN) History Depression/PP Depression: Yes (02/27/2016 11:14:Rajni Henry RN) History of Uterine Anomaly/BETINA: No (02/27/2016 11:14:Rajni Henry RN) History of Infertility: No (02/27/2016 11:14:Rajni Henry RN) History of ART Treatment: No (02/27/2016 11:14:Rajni Henry RN) History of BETINA: No (02/27/2016 11:14:Rajni Henry RN) MEDICAL HISTORY Med Hx Diabetes: No (02/27/2016 11:14:Rajni Henry RN) Med Hx Hypertension: Yes (02/27/2016 11:14:Rajni Henry RN) Med Hx Heart Disease: No (02/27/2016 11:14:Rajni Henry RN) Med Hx Autoimmune Disorder: No (02/27/2016 11:14:Rajni Henry RN) Med Hx Kidney Disease/UTI: No (02/27/2016 11:14:Rajni Henry RN) Med Hx Neurologic/Epilepsy: No (02/27/2016 11:14:Rajni Henry RN) Med Hx Psychiatric Disorders: No (02/27/2016 11:14:Rajni Henry RN) Med Hx Hepatitis/Liver Disease: No (02/27/2016 11:14:Rajni Henry RN) Med Hx Varicosities/Phlebitis: No (02/27/2016 11:14:Rajni Henry RN) Med Hx Thyroid Dysfunction: No (02/27/2016 11:14:Rajni Henry RN) Med Hx Trauma/Violence: No (02/27/2016 11:14:Rajni Henry RN) Med Hx Blood Transfusion: No (02/27/2016 11:14:Rajni Henry RN) Med Hx Pulmonary (Asthma,TB): No (02/27/2016 11:14:Rajni Henry RN) Med Hx Breast: No (02/27/2016 11:14:Rajni Henry RN) 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 (02/27/2016 11:14:Rajni Henry RN) Med Hx Hospitalization/Surgery: Yes (02/27/2016 11:14:Rajni Henry RN) Med Hx Anesthetic Complications: No (02/27/2016 11:14:Rajni Henry RN) Med Hx Abnormal Pap Smear: No (02/27/2016 11:14:Rajni Henry RN) Other Medical Diseases: No (02/27/2016 11:14:Rajni Henry RN) Med Hx Significant Family Hx: No (02/27/2016 11:14:Rajni Henry RN) Details of Med/Surg Hx: HTN- prior to , depression periodically, vaginal mesh implant 2008, hospitalized with childbirth, gallbladder removal 2013 (02/27/2016 11:14:Rajni Henry RN) INFECTIOUS HISTORY Inf Hx Gonorrhea: Yes (02/27/2016 11:14:Rajni Henry RN) Inf Hx Chlamydia: No (02/27/2016 11:14:Rajni Henry RN) Inf Hx Syphilis: No (02/27/2016 11:14:Rajni Henry RN) Inf Hx HIV/AIDS: No (02/27/2016 11:14:Rajni Henry RN) Inf Hx Human Papilloma Virus: No (02/27/2016 11:14:Rajni Henry RN) Inf Hx Pt/Partner Genital Herpes: No (02/27/2016 11:14:Rajni Henry RN) Inf Hx Tuberculosis/Exposure: No (02/27/2016 11:14:Rajni Henry RN) Inf Hx Hepatitis B,C: No (02/27/2016 11:14:Rajni Henry RN) Inf Hx Rash or Viral Illness: No (02/27/2016 11:14:Rajni Henry RN) Details of Infectious Hx: 2015- (02/27/2016 11:14:Rajni Henry RN) GENETIC HISTORY Gen Hx Age >=35 at SAJI: No (02/27/2016 11:14:Rajni Henry RN) Gen Hx Thalassemia: No (02/27/2016 11:14:Rajni Henry RN) Gen Hx Congenital Heart Defect: No (02/27/2016 11:14:Rajni Henry RN) Gen Hx Neural Tube Defect: No (02/27/2016 11:14:Rajni Henry RN) Gen Hx Down's Syndrome: Yes (02/27/2016 11:14:Rajni Henry RN) Gen Hx Rafat-Sachs: No (02/27/2016 11:14:Rajni Henry RN) Gen Hx Meena: No (02/27/2016 11:14:Rajni Henry RN) Gen Hx Familial Dysautonomia: No (02/27/2016 11:14:Rajni Henry RN) Gen Hx Sickle Cell Disease/Trait: No (02/27/2016 11:14:Rajni Henry RN) Gen Hx Hemophilia/Blood Disorder: No (02/27/2016 11:14:Rajni Henry RN) Gen Hx Muscular Dystrophy: No (02/27/2016 11:14:Rajni Henry RN) Gen Hx Cystic Fibrosis: No (02/27/2016 11:14:Rajni Henry RN) Gen Hx Huntingtons Chorea: No (02/27/2016 11:14:Rajni Henry RN) Gen Hx Mental Retardation/Autism: No (02/27/2016 11:14:Rajni Henry RN) Gen Hx Tested for Fragile X: No (02/27/2016 11:14:Rajni Henry RN) Gen Hx Other Inher/Chromosomal: No (02/27/2016 11:14:Rajni Henry RN) Gen Hx Maternal Metabolic DO: No (02/27/2016 11:14:Rajni Henry RN) Gen Hx Pt Father or FOB Defect: No (02/27/2016 11:14:Rajni Henry RN) Gen Hx Other Genetic History: No (02/27/2016 11:14:Rajni Henry RN) Gen Hx Drugs/Meds since LMP: No (02/27/2016 11:14:Rajni Henry RN) Details of Genetic History: pt sister (02/27/2016 11:14:Rajni Henry RN)
--- NOTE | 2016-05-01 06:10 | L&D Current Admission ---
Current Admit Datetime Report Generated by CPN: 05/01/2016 06:00 ADMISSION INFORMATION Chief Complaint: Headache; Visual Disturbances (03/29/2016 12:40:Sagrario Garcia, MAX)
--- NOTE | 2016-05-02 06:10 | L&D Current Admission ---
Current Admit Datetime Report Generated by CPN: 05/02/2016 06:00 ADMISSION INFORMATION Chief Complaint: Headache; Visual Disturbances (03/29/2016 12:40:Sagrario Garcia, MAX)
--- NOTE | 2016-05-02 06:10 | L&D General Admission ---
General Admit Datetime Report Generated by CPN: 05/02/2016 06:00 INFORMATION Patient Age: 40 (02/27/2016 11:10:QS system process) EDC: 06/12/2016 00:00 (02/27/2016 11:14:Rajni Henry RN) : 10 (02/27/2016 11:14:Rajni Henry RN) Para: 4 (04/25/2016 11:51:HI Monahan) Term: 4 (02/27/2016 11:14:Rajni Henry RN) : 0 (02/27/2016 11:14:Rajni Henry RN) Spontaneous Abortions: 0 (02/27/2016 11:14:Rajni Henry RN) Induced Abortions: 5 (02/27/2016 11:14:Rajni Henry RN) Livin (02/27/2016 11:14:Rajni Henry RN) Cesareans: 0 (02/27/2016 11:14:Rajni Henry RN) VBACs: 0 (02/27/2016 11:14:Rajni Henry RN) Ectopic: 0 (02/27/2016 11:14:Ranji Henry RN) Multiple Births: 0 (02/27/2016 11:14:Rajni Henry RN) Baby, Number in Womb: 1 (04/25/2016 11:51:HI Monahan) 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[employer] [facility] (02/27/2016 11:14:Rajni Henry RN) Height (in): 65 (04/25/2016 10:56:QS system process) ALLERGIES Medication Allergy: No (02/27/2016 11:14:Rajni Henry RN) Medication Allergies: No Known Allergies (04/25/2016) (04/25/2016 10:56:QS system process) Latex Allergy: No Latex Allergies (02/27/2016 11:14:Rajni Henry RN) Food Allergies: NONE (02/27/2016 11:14:Sagrario Garcia RN) Environmental Allergies: NONE (02/27/2016 11:14:Sagrario Garcia RN) COMMUNICATION Primary Language: Guamanian (02/27/2016 11:14:Rajni Henry RN) Medical Tx Preferred Language: Guamanian (02/27/2016 11:14:Rajni Henry RN) Communication Barrier(s): None (02/27/2016 11:14:Sagrario Garcia RN) DEMOGRAPHICS Address: [address] [place] [phone] (02/27/2016 11:10:QS system process) Zipcode: [phone] (02/27/2016 11:10:QS system process) Home (02/27/2016 11:10:QS system process) Work (04/25/2016 10:33:QS system process) SSN: [id number] (02/27/2016 11:10:QS system process) Next of Kin Name: GANESH HUMPHRIES (02/27/2016 11:10:QS system process) Next of Kin (04/25/2016 10:33:QS system process) Next of Kin Relationship: MO (02/27/2016 11:10:QS system process) Date of : 1975 (02/27/2016 11:10:QS system process) Marital Status: (04/25/2016 10:33:QS system process) Sex: Female (02/27/2016 11:10:QS system process) Race: (02/27/2016 11:10:QS system process) Ethnicity: Non- or (02/27/2016 11:10:QS system process) Latter-Day: Anglican (02/27/2016 11:10:QS system process) LABS Hemoglobin: 10.9 L (04/11/2016 16:15:QS system process) Hematocrit: 32.8 L (04/11/2016 16:15:QS system process) MCV: 82 (04/11/2016 16:15:QS system process) OB/PREVIOUS HISTORY Current Procedures: Ultrasound (02/27/2016 11:14:Rajni Henry RN) History of Previous : No (02/27/2016 11:14:Rajni Henry RN) History of Gestational Diabetes: No (02/27/2016 11:14:Rajni Henry RN) History of PIH: No (02/27/2016 11:14:Rajni Henry RN) History of Incompetent Cervix: No (02/27/2016 11:14:Rajni Henry RN) History of Placenta Previa/Abrup: No (02/27/2016 11:14:Rajni Henry RN) History of Macrosomia: No (02/27/2016 11:14:Rajni Henry RN) History of IUGR: No (02/27/2016 11:14:Rajni Henry RN) History of Hemorrhage: No (02/27/2016 11:14:Rajni Henry RN) History of Loss/Stillborn: No (02/27/2016 11:14:Rajni Henry RN) History of : No (02/27/2016 11:14:Rajni Henry RN) History of D (Rh) Sensitization: No (02/27/2016 11:14:Rajni Henry RN) History Recurrent Loss/Stillborn: No (02/27/2016 11:14:Rajni Henry RN) History Depression/PP Depression: Yes (02/27/2016 11:14:Rajni Henry RN) History of Uterine Anomaly/BETINA: No (02/27/2016 11:14:Rajni Henry RN) History of Infertility: No (02/27/2016 11:14:Rajni Henry RN) History of ART Treatment: No (02/27/2016 11:14:Rajni Henry RN) History of BETINA: No (02/27/2016 11:14:Rajni Henry RN) MEDICAL HISTORY Med Hx Diabetes: No (02/27/2016 11:14:Rajni Henry RN) Med Hx Hypertension: Yes (02/27/2016 11:14:Rajni Henry RN) Med Hx Heart Disease: No (02/27/2016 11:14:Rajni Henry RN) Med Hx Autoimmune Disorder: No (02/27/2016 11:14:Rajni Henry RN) Med Hx Kidney Disease/UTI: No (02/27/2016 11:14:Rajni Henry RN) Med Hx Neurologic/Epilepsy: No (02/27/2016 11:14:Rajni Henry RN) Med Hx Psychiatric Disorders: No (02/27/2016 11:14:Rajni Henry RN) Med Hx Hepatitis/Liver Disease: No (02/27/2016 11:14:Rajni Henry RN) Med Hx Varicosities/Phlebitis: No (02/27/2016 11:14:Rajni Henry RN) Med Hx Thyroid Dysfunction: No (02/27/2016 11:14:Rajni Henry RN) Med Hx Trauma/Violence: No (02/27/2016 11:14:Rajni Henry RN) Med Hx Blood Transfusion: No (02/27/2016 11:14:Rajni Henry RN) Med Hx Pulmonary (Asthma,TB): No (02/27/2016 11:14:Rajni Henry RN) Med Hx Breast: No (02/27/2016 11:14:Rajni Henry RN) Med Hx INFANT NANNY Surgery: No (02/27/2016 11:14:Rajni Henry RN) Med Hx Hospitalization/Surgery: Yes (02/27/2016 11:14:Rajni Henry RN) Med Hx Anesthetic Complications: No (02/27/2016 11:14:Rajni Henry RN) Med Hx Abnormal Pap Smear: No (02/27/2016 11:14:Ranji Henry RN) Other Medical Diseases: No (02/27/2016 11:14:Rajni Henry RN) Med Hx Significant Family Hx: No (02/27/2016 11:14:Rajni Henry RN) Details of Med/Surg Hx: HTN- prior to , depression periodically, vaginal mesh implant 2008, hospitalized with childbirth, gallbladder removal 2013 (02/27/2016 11:14:Rajni Henry RN) INFECTIOUS HISTORY Inf Hx Gonorrhea: Yes (02/27/2016 11:14:Rajni Henry RN) Inf Hx Chlamydia: No (02/27/2016 11:14:Rajni Henry RN) Inf Hx Syphilis: No (02/27/2016 11:14:Rajni Henry RN) Inf Hx HIV/AIDS: No (02/27/2016 11:14:Rajni Henry RN) Inf Hx Human Papilloma Virus: No (02/27/2016 11:14:Rajni Henry RN) Inf Hx Pt/Partner Genital Herpes: No (02/27/2016 11:14:Rajni Henry RN) Inf Hx Tuberculosis/Exposure: No (02/27/2016 11:14:Rajni Henry RN) Inf Hx Hepatitis B,C: No (02/27/2016 11:14:Rajni Henry RN) Inf Hx Rash or Viral Illness: No (02/27/2016 11:14:Rajni Henry RN) Details of Infectious Hx: 2015- (02/27/2016 11:14:Rajni Henry RN) GENETIC HISTORY Gen Hx Age >=35 at SAJI: No (02/27/2016 11:14:Rajni Henry RN) Gen Hx Thalassemia: No (02/27/2016 11:14:Rajni Henry RN) Gen Hx Congenital Heart Defect: No (02/27/2016 11:14:Rajni Henry RN) Gen Hx Neural Tube Defect: No (02/27/2016 11:14:Rajni Henry RN) Gen Hx Down's Syndrome: Yes (02/27/2016 11:14:Rajni Henry RN) Gen Hx Rafat-Sachs: No (02/27/2016 11:14:Rajni Henry RN) Gen Hx Meena: No (02/27/2016 11:14:Rajni Henry RN) Gen Hx Familial Dysautonomia: No (02/27/2016 11:14:Rajni Henry RN) Gen Hx Sickle Cell Disease/Trait: No (02/27/2016 11:14:Rajni Henry RN) Gen Hx Hemophilia/Blood Disorder: No (02/27/2016 11:14:Rajni Henry RN) Gen Hx Muscular Dystrophy: No (02/27/2016 11:14:Rajni Henry RN) Gen Hx Cystic Fibrosis: No (02/27/2016 11:14:Rajni Henry RN) Gen Hx Huntingtons Chorea: No (02/27/2016 11:14:Rajni Henry RN) Gen Hx Mental Retardation/Autism: No (02/27/2016 11:14:Rajni Henry RN) Gen Hx Tested for Fragile X: No (02/27/2016 11:14:Rajni Henry RN) Gen Hx Other Inher/Chromosomal: No (02/27/2016 11:14:Rajni Henry RN) Gen Hx Maternal Metabolic DO: No (02/27/2016 11:14:Rajni Henry RN) Gen Hx Pt Father or FOB Defect: No (02/27/2016 11:14:Rajni Henry RN) Gen Hx Other Genetic History: No (02/27/2016 11:14:Rajni Henry RN) Gen Hx Drugs/Meds since LMP: No (02/27/2016 11:14:Rajni Henry RN) Details of Genetic History: pt sister (02/27/2016 11:14:Rajni Henry RN)
--- NOTE | 2016-05-03 06:10 | L&D General Admission ---
General Admit Datetime Report Generated by CPN: 05/03/2016 06:00 INFORMATION Patient Age: 40 (02/27/2016 11:10:QS system process) EDC: 06/12/2016 00:00 (02/27/2016 11:14:Rajni Henry RN) : 10 (02/27/2016 11:14:Rajni Henry RN) Para: 4 (04/25/2016 11:51:HI Monahan) Term: 4 (02/27/2016 11:14:Rajni Henry RN) : 0 (02/27/2016 11:14:Rajni Henry RN) Spontaneous Abortions: 0 (02/27/2016 11:14:Rajni Henry RN) Induced Abortions: 5 (02/27/2016 11:14:Rajni Henry RN) Livin (02/27/2016 11:14:Rajni Henry RN) Cesareans: 0 (02/27/2016 11:14:Rajni Henry RN) VBACs: 0 (02/27/2016 11:14:Rajni Henry RN) Ectopic: 0 (02/27/2016 11:14:Rajni Henry RN) Multiple Births: 0 (02/27/2016 11:14:Rajni Henry RN) Baby, Number in Womb: 1 (04/25/2016 11:51:HI Monahan) CARE 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 (02/27/2016 11:14:Rajni Henry RN) Height (in): 65 (04/25/2016 10:56:QS system process) ALLERGIES Medication Allergy: No (02/27/2016 11:14:Rajni Henry RN) Medication Allergies: No Known Allergies (04/25/2016) (04/25/2016 10:56:QS system process) Latex Allergy: No Latex Allergies (02/27/2016 11:14:Rajni Henry RN) Food Allergies: NONE (02/27/2016 11:14:Sagrario Garcia RN) Environmental Allergies: NONE (02/27/2016 11:14:Sagrario Garcia RN) COMMUNICATION Primary Language: Trinidadian (02/27/2016 11:14:Rajni Henry RN) Medical Tx Preferred Language: Trinidadian (02/27/2016 11:14:Rajni Henry RN) Communication Barrier(s): None (02/27/2016 11:14:Sagrario Garcia RN) DEMOGRAPHICS Address: [address] [place] [phone] (02/27/2016 11:10:QS system process) Zipcode: [phone] (02/27/2016 11:10:QS system process) Home (02/27/2016 11:10:QS system process) Work (04/25/2016 10:33:QS system process) SSN: [id number] (02/27/2016 11:10:QS system process) Next of Kin Name: AGNESH HUMPHRIES (02/27/2016 11:10:QS system process) Next of Kin (04/25/2016 10:33:QS system process) Next of Kin Relationship: [place] (02/27/2016 11:10:QS system process) Date of : 1975 (02/27/2016 11:10:QS system process) Marital Status: (04/25/2016 10:33:QS system process) Sex: Female (02/27/2016 11:10:QS system process) Race: (02/27/2016 11:10:QS system process) Ethnicity: Non- or (02/27/2016 11:10:QS system process) Yarsanism: Christian (02/27/2016 11:10:QS system process) LABS Hemoglobin: 10.9 L (04/11/2016 16:15:QS system process) Hematocrit: 32.8 L (04/11/2016 16:15:QS system process) MCV: 82 (04/11/2016 16:15:QS system process) OB/PREVIOUS HISTORY Current Procedures: Ultrasound (02/27/2016 11:14:Rajni Henry RN) History of Previous : No (02/27/2016 11:14:Rajni Henyr RN) History of Gestational Diabetes: No (02/27/2016 11:14:Rajni Henry RN) History of PIH: No (02/27/2016 11:14:Rajni Henry RN) History of Incompetent Cervix: No (02/27/2016 11:14:Rajni Henry RN) History of Placenta Previa/Abrup: No (02/27/2016 11:14:Rajni Henry RN) History of Macrosomia: No (02/27/2016 11:14:Rajni Henry RN) History of IUGR: No (02/27/2016 11:14:Rajni Henry RN) History of Hemorrhage: No (02/27/2016 11:14:Rajni Henry RN) History of Loss/Stillborn: No (02/27/2016 11:14:Rajni Henry RN) History of : No (02/27/2016 11:14:Rajni Henry RN) History of D (Rh) Sensitization: No (02/27/2016 11:14:Rajni Henry RN) History Recurrent Loss/Stillborn: No (02/27/2016 11:14:Rajni Henry RN) History Depression/PP Depression: Yes (02/27/2016 11:14:Rajni Henry RN) History of Uterine Anomaly/BETINA: No (02/27/2016 11:14:Rajni Henry RN) History of Infertility: No (02/27/2016 11:14:Rajni Henry RN) History of ART Treatment: No (02/27/2016 11:14:Rajni Henry RN) History of BETINA: No (02/27/2016 11:14:Rajni Henry RN) MEDICAL HISTORY Med Hx Diabetes: No (02/27/2016 11:14:Rajni Henry RN) Med Hx Hypertension: Yes (02/27/2016 11:14:Ranji Henry RN) Med Hx Heart Disease: No (02/27/2016 11:14:Rajni Henry RN) Med Hx Autoimmune Disorder: No (02/27/2016 11:14:Rajni Henry RN) Med Hx Kidney Disease/UTI: No (02/27/2016 11:14:Rajni Henry RN) Med Hx Neurologic/Epilepsy: No (02/27/2016 11:14:Rajni Henry RN) Med Hx Psychiatric Disorders: No (02/27/2016 11:14:Rajni Henry RN) Med Hx Hepatitis/Liver Disease: No (02/27/2016 11:14:Rajni Henry RN) Med Hx Varicosities/Phlebitis: No (02/27/2016 11:14:Rajni Henry RN) Med Hx Thyroid Dysfunction: No (02/27/2016 11:14:Rajni Hnery RN) Med Hx Trauma/Violence: No (02/27/2016 11:14:Rajni Henry RN) Med Hx Blood Transfusion: No (02/27/2016 11:14:Rajni Henry RN) Med Hx Pulmonary (Asthma,TB): No (02/27/2016 11:14:Rajni Henry RN) Med Hx Breast: No (02/27/2016 11:14:Rajni Henry RN) 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 (02/27/2016 11:14:Rajni Henry RN) Med Hx Hospitalization/Surgery: Yes (02/27/2016 11:14:Rajni Henry RN) Med Hx Anesthetic Complications: No (02/27/2016 11:14:Rajni Henry RN) Med Hx Abnormal Pap Smear: No (02/27/2016 11:14:Rajni Henry RN) Other Medical Diseases: No (02/27/2016 11:14:Rajni Henry RN) Med Hx Significant Family Hx: No (02/27/2016 11:14:Rajni Henry RN) Details of Med/Surg Hx: HTN- prior to , depression periodically, vaginal mesh implant 2008, hospitalized with childbirth, gallbladder removal 2013 (02/27/2016 11:14:Rajni Henry RN) INFECTIOUS HISTORY Inf Hx Gonorrhea: Yes (02/27/2016 11:14:Rajni Henry RN) Inf Hx Chlamydia: No (02/27/2016 11:14:Rajni Henry RN) Inf Hx Syphilis: No (02/27/2016 11:14:Rajni Henry RN) Inf Hx HIV/AIDS: No (02/27/2016 11:14:Rajni Henry RN) Inf Hx Human Papilloma Virus: No (02/27/2016 11:14:Rajni Henry RN) Inf Hx Pt/Partner Genital Herpes: No (02/27/2016 11:14:Rajni Henry RN) Inf Hx Tuberculosis/Exposure: No (02/27/2016 11:14:Rajni Henry RN) Inf Hx Hepatitis B,C: No (02/27/2016 11:14:Rajni Henry RN) Inf Hx Rash or Viral Illness: No (02/27/2016 11:14:Rajni Henry RN) Details of Infectious Hx: 2015- (02/27/2016 11:14:Rajni Henry RN) GENETIC HISTORY Gen Hx Age >=35 at SAJI: No (02/27/2016 11:14:Rajni Henry RN) Gen Hx Thalassemia: No (02/27/2016 11:14:Rajni Henry RN) Gen Hx Congenital Heart Defect: No (02/27/2016 11:14:Rajni Henry RN) Gen Hx Neural Tube Defect: No (02/27/2016 11:14:Rajni Henry RN) Gen Hx Down's Syndrome: Yes (02/27/2016 11:14:Rajni Henry RN) Gen Hx Rafat-Sachs: No (02/27/2016 11:14:Rajni Henry RN) Gen Hx Meena: No (02/27/2016 11:14:Rajni Henry RN) Gen Hx Familial Dysautonomia: No (02/27/2016 11:14:Rajni Henry RN) Gen Hx Sickle Cell Disease/Trait: No (02/27/2016 11:14:Rajni Henry RN) Gen Hx Hemophilia/Blood Disorder: No (02/27/2016 11:14:Rajni Henry RN) Gen Hx Muscular Dystrophy: No (02/27/2016 11:14:Rajni Henry RN) Gen Hx Cystic Fibrosis: No (02/27/2016 11:14:Rajni Henry RN) Gen Hx Huntingtons Chorea: No (02/27/2016 11:14:Rajni Henry RN) Gen Hx Mental Retardation/Autism: No (02/27/2016 11:14:Rajni Henry RN) Gen Hx Tested for Fragile X: No (02/27/2016 11:14:Rajni Henry RN) Gen Hx Other Inher/Chromosomal: No (02/27/2016 11:14:Rajni Henry RN) Gen Hx Maternal Metabolic DO: No (02/27/2016 11:14:Rajni Henry RN) Gen Hx Pt Father or FOB Defect: No (02/27/2016 11:14:Rajni Henry RN) Gen Hx Other Genetic History: No (02/27/2016 11:14:Rajni Henry RN) Gen Hx Drugs/Meds since LMP: No (02/27/2016 11:14:Rajni Henry RN) Details of Genetic History: pt sister (02/27/2016 11:14:Rajni Henry RN)
--- NOTE | 2016-05-03 06:10 | L&D Current Admission ---
Current Admit Datetime Report Generated by CPN: 05/03/2016 06:00 ADMISSION INFORMATION Chief Complaint: Headache; Visual Disturbances (03/29/2016 12:40:Sagrario Garcia, MAX)
--- NOTE | 2016-05-04 06:10 | L&D General Admission ---
General Admit Datetime Report Generated by CPN: 05/04/2016 06:00 INFORMATION Patient Age: 40 (02/27/2016 11:10:QS system process) EDC: 06/12/2016 00:00 (02/27/2016 11:14:Rajni Henry RN) : 10 (02/27/2016 11:14:Rajni Henry RN) Para: 4 (04/25/2016 11:51:HI Monahan) Term: 4 (02/27/2016 11:14:Rajni Henry RN) : 0 (02/27/2016 11:14:Rajni Henry RN) Spontaneous Abortions: 0 (02/27/2016 11:14:Rajni Henry RN) Induced Abortions: 5 (02/27/2016 11:14:Rajni Henry RN) Livin (02/27/2016 11:14:Rajni Henry RN) Cesareans: 0 (02/27/2016 11:14:Rajni Henry RN) VBACs: 0 (02/27/2016 11:14:Rajni Henry RN) Ectopic: 0 (02/27/2016 11:14:Rajni Henry RN) Multiple Births: 0 (02/27/2016 11:14:Rajni Henry RN) Baby, Number in Womb: 1 (04/25/2016 11:51:HI Monahan) 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[employer] [facility] (02/27/2016 11:14:Rajni Henry RN) Height (in): 65 (04/25/2016 10:56:QS system process) ALLERGIES Medication Allergy: No (02/27/2016 11:14:Rajni Henry RN) Medication Allergies: No Known Allergies (04/25/2016) (04/25/2016 10:56:QS system process) Latex Allergy: No Latex Allergies (02/27/2016 11:14:Rajni Henry RN) Food Allergies: NONE (02/27/2016 11:14:Sagrario Garcia RN) Environmental Allergies: NONE (02/27/2016 11:14:Sagrario Garcia RN) COMMUNICATION Primary Language: Stateless (02/27/2016 11:14:Rajni Henry RN) Medical Tx Preferred Language: Stateless (02/27/2016 11:14:Rajni Henry RN) Communication Barrier(s): None (02/27/2016 11:14:Sagrario Garcia RN) DEMOGRAPHICS Address: [address] [place] [phone] (02/27/2016 11:10:QS system process) Zipcode: [phone] (02/27/2016 11:10:QS system process) Home (02/27/2016 11:10:QS system process) Work (04/25/2016 10:33:QS system process) SSN: [id number] (02/27/2016 11:10:QS system process) Next of Kin Name: GANESH HUMPHRIES (02/27/2016 11:10:QS system process) Next of Kin (04/25/2016 10:33:QS system process) Next of Kin Relationship: [place] (02/27/2016 11:10:QS system process) Date of : 1975 (02/27/2016 11:10:QS system process) Marital Status: (04/25/2016 10:33:QS system process) Sex: Female (02/27/2016 11:10:QS system process) Race: (02/27/2016 11:10:QS system process) Ethnicity: Non- or (02/27/2016 11:10:QS system process) Judaism: Baptism (02/27/2016 11:10:QS system process) LABS Hemoglobin: 10.9 L (04/11/2016 16:15:QS system process) Hematocrit: 32.8 L (04/11/2016 16:15:QS system process) MCV: 82 (04/11/2016 16:15:QS system process) OB/PREVIOUS HISTORY Current Procedures: Ultrasound (02/27/2016 11:14:Rajni Henry RN) History of Previous : No (02/27/2016 11:14:Rajni Henry RN) History of Gestational Diabetes: No (02/27/2016 11:14:Rajni Henry RN) History of PIH: No (02/27/2016 11:14:Rajni Henry RN) History of Incompetent Cervix: No (02/27/2016 11:14:Rajni Henry RN) History of Placenta Previa/Abrup: No (02/27/2016 11:14:Rajin Henry RN) History of Macrosomia: No (02/27/2016 11:14:Rajni Henry RN) History of IUGR: No (02/27/2016 11:14:Rajni Henry RN) History of Hemorrhage: No (02/27/2016 11:14:Rajni Henry RN) History of Loss/Stillborn: No (02/27/2016 11:14:Rajni Henry RN) History of : No (02/27/2016 11:14:Rajni Henry RN) History of D (Rh) Sensitization: No (02/27/2016 11:14:Rajni Henry RN) History Recurrent Loss/Stillborn: No (02/27/2016 11:14:Rajni Henry RN) History Depression/PP Depression: Yes (02/27/2016 11:14:Rajni Henry RN) History of Uterine Anomaly/BETINA: No (02/27/2016 11:14:Rajni Henry RN) History of Infertility: No (02/27/2016 11:14:Rajni Henry RN) History of ART Treatment: No (02/27/2016 11:14:Rajni Henry RN) History of BETINA: No (02/27/2016 11:14:Rajni Henry RN) MEDICAL HISTORY Med Hx Diabetes: No (02/27/2016 11:14:Rajni Henry RN) Med Hx Hypertension: Yes (02/27/2016 11:14:Rajni Henry RN) Med Hx Heart Disease: No (02/27/2016 11:14:Rajni Henry RN) Med Hx Autoimmune Disorder: No (02/27/2016 11:14:Rajni Henry RN) Med Hx Kidney Disease/UTI: No (02/27/2016 11:14:Rajni Henry RN) Med Hx Neurologic/Epilepsy: No (02/27/2016 11:14:Rajni Henry RN) Med Hx Psychiatric Disorders: No (02/27/2016 11:14:Rajni Henry RN) Med Hx Hepatitis/Liver Disease: No (02/27/2016 11:14:Rajni Henry RN) Med Hx Varicosities/Phlebitis: No (02/27/2016 11:14:Rajni Henry RN) Med Hx Thyroid Dysfunction: No (02/27/2016 11:14:Rajni Henry RN) Med Hx Trauma/Violence: No (02/27/2016 11:14:Rajni Henry RN) Med Hx Blood Transfusion: No (02/27/2016 11:14:Rajni Henry RN) Med Hx Pulmonary (Asthma,TB): No (02/27/2016 11:14:Rajni Henry RN) Med Hx Breast: No (02/27/2016 11:14:Rajni Henry RN) 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 (02/27/2016 11:14:Rajni Henry RN) Med Hx Hospitalization/Surgery: Yes (02/27/2016 11:14:Rajni Henry RN) Med Hx Anesthetic Complications: No (02/27/2016 11:14:Rajni Henry RN) Med Hx Abnormal Pap Smear: No (02/27/2016 11:14:Rajni Henry RN) Other Medical Diseases: No (02/27/2016 11:14:Rajni Henry RN) Med Hx Significant Family Hx: No (02/27/2016 11:14:Rajni Henry RN) Details of Med/Surg Hx: HTN- prior to , depression periodically, vaginal mesh implant 2008, hospitalized with childbirth, gallbladder removal 2013 (02/27/2016 11:14:Rajni Henry RN) INFECTIOUS HISTORY Inf Hx Gonorrhea: Yes (02/27/2016 11:14:Rajni Henry RN) Inf Hx Chlamydia: No (02/27/2016 11:14:Rajni Henry RN) Inf Hx Syphilis: No (02/27/2016 11:14:Rajni Henry RN) Inf Hx HIV/AIDS: No (02/27/2016 11:14:Rajni Henry RN) Inf Hx Human Papilloma Virus: No (02/27/2016 11:14:Rajni Henry RN) Inf Hx Pt/Partner Genital Herpes: No (02/27/2016 11:14:Rajni Henry RN) Inf Hx Tuberculosis/Exposure: No (02/27/2016 11:14:Rajni Henry RN) Inf Hx Hepatitis B,C: No (02/27/2016 11:14:Rajni Henry RN) Inf Hx Rash or Viral Illness: No (02/27/2016 11:14:Rajni Henry RN) Details of Infectious Hx: 2015- (02/27/2016 11:14:Rajni Henry RN) GENETIC HISTORY Gen Hx Age >=35 at SAJI: No (02/27/2016 11:14:Rajni Henry RN) Gen Hx Thalassemia: No (02/27/2016 11:14:Rajni Henry RN) Gen Hx Congenital Heart Defect: No (02/27/2016 11:14:Rajni Henry RN) Gen Hx Neural Tube Defect: No (02/27/2016 11:14:Rajni Henry RN) Gen Hx Down's Syndrome: Yes (02/27/2016 11:14:Rajni Henry RN) Gen Hx Rafat-Sachs: No (02/27/2016 11:14:Rajni Henry RN) Gen Hx Meena: No (02/27/2016 11:14:Rajni Henry RN) Gen Hx Familial Dysautonomia: No (02/27/2016 11:14:Rajni Henry RN) Gen Hx Sickle Cell Disease/Trait: No (02/27/2016 11:14:Rajni Henry RN) Gen Hx Hemophilia/Blood Disorder: No (02/27/2016 11:14:Rajni Henry RN) Gen Hx Muscular Dystrophy: No (02/27/2016 11:14:Rajni Henry RN) Gen Hx Cystic Fibrosis: No (02/27/2016 11:14:Rajni Henry RN) Gen Hx Huntingtons Chorea: No (02/27/2016 11:14:Rajni Henry RN) Gen Hx Mental Retardation/Autism: No (02/27/2016 11:14:Rajni Henry RN) Gen Hx Tested for Fragile X: No (02/27/2016 11:14:Rajni Henry RN) Gen Hx Other Inher/Chromosomal: No (02/27/2016 11:14:Rajni Henry RN) Gen Hx Maternal Metabolic DO: No (02/27/2016 11:14:Rajni Henry RN) Gen Hx Pt Father or FOB Defect: No (02/27/2016 11:14:Rajni Henry RN) Gen Hx Other Genetic History: No (02/27/2016 11:14:Rajni Henry RN) Gen Hx Drugs/Meds since LMP: No (02/27/2016 11:14:Rajni Henry RN) Details of Genetic History: pt sister (02/27/2016 11:14:Rajni Henry RN)
--- NOTE | 2016-05-04 06:10 | L&D Current Admission ---
Current Admit Datetime Report Generated by CPN: 05/04/2016 06:00 ADMISSION INFORMATION Chief Complaint: Headache; Visual Disturbances (03/29/2016 12:40:Sagrario Garcia, MAX)
== END 2016-04-25 11:38 | disposition home or self-care (01) ==
LOC: LC 10:32
PROVIDERS: ATTEND Obstetrics & Gynecology
PROC: 4A1HXCZ Monitoring of Products of Conception, Cardiac Rate, External Approach (ICD-10-PCS; principal; 2016-04-25)
DX: O40.3XX0 Polyhydramnios, third trimester, not applicable or unspecified (principal); O09.523 Supervision of elderly multigravida, third trimester; Z3A.33 33 weeks gestation of pregnancy
CPT/HCPCS: 59025

== ENCOUNTER 2016-05-05 09:20 | Outpatient (CLI) | payer BC, MEDICAID | END 2016-05-05 10:37 | disposition home or self-care (01) | LOC: LC 09:20 | PROVIDERS: ATTEND Obstetrics & Gynecology | PROC: 4A1HXCZ Monitoring of Products of Conception, Cardiac Rate, External Approach (ICD-10-PCS; principal; 2016-05-05) | DX: O09.523 Supervision of elderly multigravida, third trimester (principal); Z3A.34 34 weeks gestation of pregnancy | CPT/HCPCS: 59025; 87210 ==

== ENCOUNTER → 2016-05-09 | Outpatient (CLI) | payer BC, MEDICAID ==
[2016-05-09 10:42] LABS: HEMATOCRIT 34.1 % (36.0-47.0); HEMOGLOBIN 10.6 g/dL (12.0-15.5); HGB HCT DIFFERENCE -2.3; MEAN CORPUSCULAR HEMOGLOBIN 24.7 pg (27.0-33.4); MEAN CORPUSCULAR HGB CONC 31.1 g/dL (32.0-36.0); MEAN CORPUSCULAR VOLUME 80 fl (80-97); RED BLOOD COUNT 4.29 10^6/uL (3.72-5.28); RED CELL DISTRIBUTION WIDTH 14.3 % (11.5-14.0); WHITE BLOOD COUNT 6.2 10^3/uL (4.0-10.5)
[2016-05-09 11:03] LABS: ASPARTATE AMINO TRANSFERASE 19 U/L (14-36); CREATININE RESULT 0.54 mg/dL (0.52-1.25); LDH 444 U/L (313-618); URIC ACID 4.3 mg/dL (2.5-7.0)
== END ==
LOC: OD 09:59
PROVIDERS: ATTEND Registered Nurse Women's Health Care, Ambulatory
DX: O10.919 Unspecified pre-existing hypertension complicating pregnancy, unspecified trimester (principal); Z3A.00 Weeks of gestation of pregnancy not specified
CPT/HCPCS: 36415; 82565; 83615; 84450; 84550; 85027

== ENCOUNTER 2016-05-12 21:11 | Outpatient (CLI) | payer BC, MEDICAID ==
--- NOTE | 2016-05-12 22:00 | L&D Flow Sheet ---
LD Flowsheet Datetime Report Generated by CPN: 05/12/2016 22:00 Datetime: 05/12/2016 21:49 NBP Sys/Estrella/Mean (mmHg): 129 (QS system process) : 83 (QS system process) : 101 (QS system process) Pulse: 97 (QS system process) LaborFlag: OB Triage (QS system process) Datetime: 05/12/2016 21:34 Pain Scale: 3 (Annotations: headache) (Areli Benavides, MAX) Pain Presence: Constant (Areli Ledgerwood, RN) Pain Type: Ache (Areli Benavides RN) Pain Location: Head (Areli Benavides RN) Pain Relief Measures: Comfort Measures (Areli Benavides RN) Vaginal Bleeding: None (Areli Benavides RN) Level of Consciousness: Fully Conscious (Areli Benavides RN) DTR's/Clonus: DTRs 2+; No Clonus (Areli Benavides RN) Headache: Denies; Frontal (Areli Benavides RN) Breath Sounds, Left: Clear and Equal (Areli Benavides RN) Breath Sounds, Right: Clear and Equal (Areli Benavides RN) Nausea/Vomiting: Denies (Areli Benavides RN) RUQ Epigastric Pain: Denies (Areli Benavides RN) Instructional Method: Demo; Verbal; Patient Instructed (Areli Benavides RN) Plan of Care: Plan of Care Discussed (Areli Benavides RN) Unit Routine: [place] to Room; Call [facility]; Bed; Handwashing; Monitoring; Safety/Fall Risk Prevention (Areli Benavides RN) LaborFlag: OB Triage (QS system process) Datetime: 05/12/2016 21:31 NBP Sys/Estrella/Mean (mmHg): 114 (QS system process) : 76 (QS system process) : 89 (QS system process) Pulse: 101 (QS system process) LaborFlag: OB Triage (QS system process)
[2016-05-12 22:10] LABS: URINE BARBITURATES SCREEN NEGATIVE; URINE METHADONE SCREEN NEGATIVE; URINE PHENCYCLIDINE SCREEN NEGATIVE
[2016-05-12 22:14] LABS: APPEARANCE,URINE CLOUDY; BILIRUBIN,URINE NEGATIVE (NEGATIVE); GLUCOSE, URINE NEGATIVE (NEGATIVE); KETONES,URINE TRACE mg/dL (NEGATIVE); LEUKOCYTE ESTERASE,URINE NEGATIVE (NEGATIVE); NITRITE,URINE NEGATIVE (NEGATIVE); PROTEIN,URINE 30 mg/dL (NEGATIVE); URINE SPECIFIC GRAVITY 1.017; UROBILINOGEN,URINE NEGATIVE mg/dL (<2.0)
[2016-05-12 22:21] LABS: URINE OPIATES LOW NEGATIVE
--- NOTE | 2016-05-18 23:54 | Non Stress Test Report ---
Non Stress Test Datetime Report Generated by CPN: 05/18/2016 23:54 DEMOGRAPHIC EGA NST: 35.4 EGA NST: 34.4 INDICATION Indication for Study: Ordered by Provider Indication for Study: Ordered by Provider VITAL SIGNS Temperature - NST: 98.4 Pulse - NST: 100 RESP - NST: 16 NBPSYS NST: 117 NBPDIA NST: 76 MONITORING Monitor Explained: Monitor Explained; Test Explained; Patient Verbalized Understanding Monitor Explained: Monitor Explained; Test Explained; Patient Verbalized Understanding Monitor Explained Other: see flowsheet for vital signs Time on Monitor: 05/12/2016 21:24 Time on Monitor: 05/05/2016 09:30 Time off Monitor: 05/12/2016 22:28 Time off Monitor: 05/05/2016 10:24 NST Duration: 64 NST Duration: 54 NST INTERVENTIONS NST Interventions: PO Hydration NST Interventions: PO Hydration; Reposition Patient Physician Notified NST: Dr Ball Physician Notified NST: Cordell Olivares CNM BABY A: [id number] BABY A Movement : Present Movement : Present Contraction Frequency : occas Contraction Frequency : none FHR Baseline : 150 FHR Baseline : 155 Accelerations : 15X15 Accelerations : 15X15 Decelerations : None Decelerations : None Variability : Moderate 6-25bpm Variability : Moderate 6-25bpm NST Review: Meets Criteria for Reactive NST NST Review: Meets Criteria for Reactive NST NST Review and Verified By : HI Castillo NST Review and Verified By : Chi Johnson RN NST Results: Reactive NST Results: Reactive NST REPORT Report Trigger: Send Report
== END 2016-05-12 22:37 | disposition home or self-care (01) ==
LOC: LC 21:11
PROVIDERS: ATTEND Obstetrics & Gynecology
PROC: 4A1HXCZ Monitoring of Products of Conception, Cardiac Rate, External Approach (ICD-10-PCS; principal; 2016-05-12)
DX: O47.03 False labor before 37 completed weeks of gestation, third trimester (principal); O09.523 Supervision of elderly multigravida, third trimester; Z3A.35 35 weeks gestation of pregnancy
CPT/HCPCS: 59025; 80307; 81001

== ENCOUNTER 2016-05-18 23:59 | Inpatient (IN) | payer BC, MEDICAID ==
[2016-05-19] MEDS ORDERED: PENICILLIN G POTASSIUM 5,000,000 UNIT in DEXTROSE 5%-WATER 100 ML IV ONE (00:10)
[2016-05-19] MEDS ORDERED: PENICILLIN G-K 5 MILLION UNIT VIAL ONE ×3 (00:18→08:47)
[2016-05-19 00:43] LABS: ABSOLUTE EOSINOPHILS # (AUTO) 0.2 10^3/uL (0.0-0.6); ABSOLUTE MONOCYTES (AUTO) 0.7 10^3/uL (0.1-1.4); BASOPHILS % (AUTO) 0.6 % (0-2); EOSINOPHILS % (AUTO) 2.4 % (0-6); HEMATOCRIT 31.2 % (36.0-47.0); HEMOGLOBIN 10.3 g/dL (12.0-15.5); HGB HCT DIFFERENCE -0.3; LYMPHOCYTES % (AUTO) 29.3 % (13-45); MEAN CORPUSCULAR HEMOGLOBIN 25.1 pg (27.0-33.4); MEAN CORPUSCULAR HGB CONC 32.9 g/dL (32.0-36.0); MONOCYTES % (AUTO) 10.6 % (3-13); RED BLOOD COUNT 4.08 10^6/uL (3.72-5.28); RED CELL DISTRIBUTION WIDTH 14.7 % (11.5-14.0); SEGMENTED NEUTROPHILS % (AUTO) 57.1 % (42-78)
[2016-05-19 00:44] LABS: MEAN CORPUSCULAR VOLUME 77 fl (80-97)
[2016-05-19] MEDS ORDERED: PENICILLIN G-K 5 MILLION UNIT VIAL IV PRN ×2 (01:13→01:15)
[2016-05-19] MEDS: RINGERS SOLUTION,LACTATED 1,000 ML IV PRN ×3 (01:43→12:41)
[2016-05-19 02:12] LABS: APPEARANCE,URINE CLEAR; BILIRUBIN,URINE NEGATIVE (NEGATIVE); GLUCOSE, URINE NEGATIVE (NEGATIVE); KETONES,URINE NEGATIVE (NEGATIVE); LEUKOCYTE ESTERASE,URINE NEGATIVE (NEGATIVE); NITRITE,URINE NEGATIVE (NEGATIVE); PROTEIN,URINE NEGATIVE (NEGATIVE); URINE SPECIFIC GRAVITY 1.009; UROBILINOGEN,URINE NEGATIVE mg/dL (<2.0)
[2016-05-19 02:33] LABS: URINE BARBITURATES SCREEN NEGATIVE; URINE METHADONE SCREEN NEGATIVE; URINE OPIATES LOW NEGATIVE; URINE PHENCYCLIDINE SCREEN NEGATIVE
[2016-05-19] MEDS ORDERED: OXYTOCIN/NORMAL SALINE 1,000 ML IV PRN ×2 (03:55→15:20)
[2016-05-19] MEDS ORDERED: OXYTOCIN/NORMAL SALINE 20 UNIT/1,000 ML RTUINJ ONE (03:58)
[2016-05-19] MEDS ORDERED: PENICILLIN G POTASSIUM 2,500,000 UNIT in DEXTROSE 5%-WATER 50 ML IV SCH (04:11)
--- NOTE | 2016-05-19 08:01 | L&D Flow Sheet ---
LD Flowsheet Datetime Report Generated by CPN: 05/19/2016 08:00 Datetime: 05/19/2016 07:50 Pitocin (milliunit): Pitocin Discontinued (Daylin Vazquez RN) Datetime: 05/19/2016 07:48 Communication: RN at Bedside; Provider at Bedside (Daylin Vazquez RN) Communication Comments: Dr. Macdonald @ bedside discussing risks of continuing with vaginal delivery due to patient's vaginal mesh. Provider and M has recommended cesarian section. Pt stated she wants to speak with her mom before making her decision. (Daylin Marhefka, RN) Datetime: 05/19/2016 07:39 NBP Sys/Estrella/Mean (mmHg): 136 (QS system process) : 87 (QS system process) : 106 (QS system process) Pulse: 92 (QS system process) LaborFlag: Antepartum (QS system process) Datetime: 05/19/2016 07:35 Level of Consciousness: Fully Conscious (Daylin Marhefka, RN) DTR's/Clonus: DTRs 1+; No Clonus (Daylin Marhefka, RN) Headache: Denies (Daylin Marhefka, RN) Breath Sounds, Left: Clear and Equal (Daylin Marhefka, RN) Breath Sounds, Right: Clear and Equal (Daylin Marhefka, RN) Nausea/Vomiting: Denies (Daylin Marhefka, RN) RUQ Epigastric Pain: Denies (Daylin Marhefka, RN) Datetime: 05/19/2016 07:30 Monitor Mode: External (Daylin Marhefka, RN) Frequency (min): 2-3 (Daylin Marhefka, RN) Quality: Mild (Daylin Marhefka, RN) Duration (sec): 40-70 (Daylin Marhefka, RN) Resting Tone (Palpate): Relaxed (Daylin Marhefka, RN) Datetime: 05/19/2016 07:24 Patient Position/Activity: Right Lateral; Semi-Fowlers (Daylin Marhefka, RN) Datetime: 05/19/2016 07:22 Communication Comments: Report given to Neville Vazquez RN, care relinquished at this time. (Micheline Varela RN) Datetime: 05/19/2016 07:15 Monitor Mode: External; Palpation (Daylin Vazquez, RN) Frequency (min): 2-3 (Daylin Vazquez, RN) Quality: Mild/Moderate (Daylin Vazquez, RN) Duration (sec): 40-50 (Daylin Jackelynfka, RN) Resting Tone (Palpate): Relaxed (Daylin Jackelynfka, RN) Datetime: 05/19/2016 07:09 NBP Sys/Estrella/Mean (mmHg): 137 (QS system process) : 86 (QS system process) : 106 (QS system process) Pulse: 90 (QS system process) LaborFlag: Antepartum (QS system process) Datetime: 05/19/2016 07:00 Stage of : Antepartum (Micheline Varela RN) Monitor Mode: External (Micheline Varela RN) Frequency (min): 2-3 (Micheline Varela RN) Quality: Mild (Micheline Varela RN) Duration (sec): 60-80 (Micheline Varela RN) Resting Tone (Palpate): Relaxed (Micheline Varela RN) Monitor Mode: External US (Micheline Varela RN) Monitor Interventions for FHR: Ultrasound Adjusted (Micheline Varela RN) FHR Baseline Rate : 140 (Micheline Varela RN) FHR Baseline Changes: No Baseline Change (Micheline Varela RN) Variability: Moderate 6-25 bpm (Micheline Varela RN) Accelerations: 15X15 (Micheline Varela RN) Decelerations: None (Micheline Varela RN) Comments: RN at b/s adjusting US (Micheline Varela RN) Pain Presence: Intermittent (Micheline Varela RN) Pain Type: Contraction (Micheline Varela RN) Pain Location: Abdomen (Micheline Varela RN) Pain Relief Measures: Comfort Measures (Micheline Varela RN) Pain Coping: Talking Through Contractions (Micheline Varela RN) Patient Position/Activity: Right Tilt; Semi-Fowlers (Micheline Varela RN) Comfort Measures: Breathing/Relaxation; Coaching; Family Support (Micheline Varela RN) Communication: RN at Bedside; RN Reviewed Strip (Micheline Varela RN) LaborFlag: Antepartum (QS system process) Datetime: 05/19/2016 06:52 Dilatation (cm): 1.0 (Micheline Varela RN) Effacement (%): 50 (Micheline Varela RN) Station: -3 (Micheline Varela RN) Exam by: Zoe Persaud RN (Micheline Varela RN) Datetime: 05/19/2016 06:45 Stage of : Antepartum (Micheline Varela RN) Monitor Mode: External (Micheline Varela RN) Frequency (min): n/a (Micheline Varela RN) Quality: Mild/Moderate (Micheline Varela RN) Resting Tone (Palpate): Relaxed (Micheline Varela RN) Monitor Mode: External US (Micheline Varela RN) FHR Baseline Rate : 135 (Micheline Varela RN) FHR Baseline Changes: No Baseline Change (Micheline Varela RN) Variability: Moderate 6-25 bpm (Micheline Varela RN) Accelerations: 15X15 (Micheline Varela RN) Decelerations: None (Micheline Varela RN) Pain Presence: None/Denies (Micheline Varela RN) Pitocin (milliunit): Pitocin Remains (milliunits) @ 10 (Micheline Varela RN) Patient Position/Activity: Left Tilt; Semi-Fowlers (Micheline Varela RN) Communication: RN at Bedside; RN Reviewed Strip (Micheline Varela RN) LaborFlag: Antepartum (QS system process) Datetime: 05/19/2016 06:42 I/O Interventions: Up to BR (Micheline Varela RN) Datetime: 05/19/2016 06:39 NBP Sys/Estrella/Mean (mmHg): 119 (QS system process) : 86 (QS system process) : 96 (QS system process) Pulse: 91 (QS system process) LaborFlag: Antepartum (QS system process) Datetime: 05/19/2016 06:30 Stage of : Antepartum (Micheline Varela RN) Monitor Mode: External (Micheline Varela RN) Monitor Interventions for UA: [place] Adjusted (Micheline Varela RN) Frequency (min): 3-4 (Micheline Varela RN) Quality: Mild (Micheline Varela RN) Duration (sec): 50-60 (Micheline Varela RN) Resting Tone (Palpate): Relaxed (Micheline Varela RN) Monitor Mode: External US (Micheline Varela RN) FHR Baseline Rate : 140 (Micheline Varela RN) FHR Baseline Changes: No Baseline Change (Micheline Varela RN) Variability: Moderate 6-25 bpm (Micheline Varela RN) Accelerations: 15X15 (Micheline Varela RN) Decelerations: None (Micheline Varela RN) Pain Presence: None/Denies (Micheline Varela RN) Pitocin (milliunit): Pitocin Increased to (milliunits) @ 10 (Micheline Varela RN) Communication: RN at Bedside; RN Reviewed Strip (Micheline Varela RN) LaborFlag: Antepartum (QS system process) Datetime: 05/19/2016 06:15 Stage of : Antepartum (Micheline Varela RN) Monitor Mode: External (Micheline Varela RN) Frequency (min): 2 (Micheline Varela RN) Quality: Mild (Micheline Varela RN) Duration (sec): 90-120 (Micheline Varela RN) Resting Tone (Palpate): Relaxed (Micheline Varela RN) Monitor Mode: External US (Micheline Varela RN) Monitor Interventions for FHR: Ultrasound Adjusted (Micheline Varela RN) FHR Baseline Rate : 140 (Micheline Varela RN) FHR Baseline Changes: No Baseline Change (Micheline Varela RN) Variability: Moderate 6-25 bpm (Micheline Varela RN) Accelerations: 15X15 (Micheline Varela RN) Decelerations: None (Micheline Varela RN) Pitocin (milliunit): Pitocin Remains (milliunits) @ 8 (Micheline Varela RN) Communication: RN at Bedside; RN Reviewed Strip (Micheline Varela RN) Datetime: 05/19/2016 06:09 NBP Sys/Estrella/Mean (mmHg): 136 (QS system process) : 93 (QS system process) : 110 (QS system process) Pulse: 83 (QS system process) LaborFlag: Antepartum (QS system process) Datetime: 05/19/2016 06:04 I/O Interventions: Up to BR (Micheline Varela RN) Datetime: 05/19/2016 06:00 Stage of : Antepartum (Micheline Varela RN) Monitor Mode: External (Micheline Varela RN) Frequency (min): 2-3 (Micheline Varela RN) Quality: Mild (Micheline Varela RN) Duration (sec): 70-100 (Micheline Varela RN) Resting Tone (Palpate): Relaxed (Micheline Varela RN) Monitor Mode: External US (Micheline Varela RN) FHR Baseline Rate : 135 (Micheline Varela RN) FHR Baseline Changes: No Baseline Change (Micheline Varela RN) Variability: Moderate 6-25 bpm (Micheline Varela RN) Accelerations: None (Micheline Varela RN) Decelerations: None (Micheline Varela RN) Pain Presence: None/Denies (Micheline Varela RN) Pitocin (milliunit): Pitocin Increased to (milliunits) @ 8 (Micheline Varela RN) Patient Position/Activity: Left Tilt; Semi-Fowlers (Micheline Varela RN) Communication: RN at Bedside; RN Reviewed Strip (Micheline Varela RN) LaborFlag: Antepartum (QS system process) Datetime: 05/19/2016 05:45 Stage of : Antepartum (Micheline Varela RN) Monitor Mode: External (Micheline Varela RN) Frequency (min): 3-6 (Micheline Varela RN) Quality: Mild (Micheline Varela RN) Duration (sec): 80-90 (Micheline Varela RN) Resting Tone (Palpate): Relaxed (Micheline Varela RN) Monitor Mode: External US (Micheline Varela RN) FHR Baseline Rate : 135 (Micheline Varela RN) FHR Baseline Changes: No Baseline Change (Micheline Varela RN) Variability: Moderate 6-25 bpm (Micheline Varela RN) Accelerations: 15X15 (Micheline Varela RN) Decelerations: None (Micheline Varela RN) Pain Coping: Sleeping (Micheline Varela RN) Pitocin (milliunit): Pitocin Remains (milliunits) @ 6 (Micheline Varela RN) Patient Position/Activity: Left Tilt; Semi-Fowlers (Micheline Varela RN) Communication: RN Reviewed Strip (Micheline Varela RN) Datetime: 05/19/2016 05:39 NBP Sys/Estrella/Mean (mmHg): 130 (QS system process) : 86 (QS system process) : 101 (QS system process) Pulse: 85 (QS system process) LaborFlag: Antepartum (QS system process) Datetime: 05/19/2016 05:30 Stage of : Antepartum (Micheline Varela RN) Monitor Mode: External (Micheline Varela RN) Frequency (min): 5 (Micheline Varela RN) Quality: Mild (Micheline Varela RN) Duration (sec): 80-100 (Micheline Varela RN) Resting Tone (Palpate): Relaxed (Micheline Varela RN) Monitor Mode: External US (Micheline Varela RN) Monitor Interventions for FHR: Ultrasound Adjusted (Micheline Varela RN) FHR Baseline Rate : 130 (Micheline Varela RN) FHR Baseline Changes: No Baseline Change (Micheline Varela RN) Variability: Moderate 6-25 bpm (Micheline Varela RN) Accelerations: 15X15 (Micheline Varela RN) Decelerations: None (Micheline Varela RN) Pain Coping: Sleeping (Micheline Varela RN) Pitocin (milliunit): Pitocin Increased to (milliunits) @ 6 (Micheline Varela RN) Patient Position/Activity: Left Tilt; Semi-Fowlers (Micheline Varela RN) Communication: RN at Bedside; RN Reviewed Strip (Micheline Varela RN) Datetime: 05/19/2016 05:15 Stage of : Antepartum (Micheline Varela RN) Monitor Mode: External (Micheline Varela RN) Frequency (min): 3-4 (Micheline Varela RN) Quality: Mild (Micheline Varela RN) Duration (sec): 70-100 (Micheline Varela RN) Resting Tone (Palpate): Relaxed (Micheline Varela RN) Monitor Mode: External US (Micheline Varela RN) Monitor Interventions for FHR: Ultrasound Adjusted (Micheline Varela RN) FHR Baseline Rate : 130 (Micheline Varela RN) FHR Baseline Changes: No Baseline Change (Micheline Varela RN) Variability: Moderate 6-25 bpm (Micheline Varela RN) Accelerations: 15X15 (Micheline Varela RN) Decelerations: None (Micheline Varela RN) Pain Coping: Sleeping (Micheline Varela RN) Pitocin (milliunit): Pitocin Remains (milliunits) @ 4 (Micheline Varela RN) Communication: RN Reviewed Strip (Micheline Varela RN) Datetime: 05/19/2016 05:09 NBP Sys/Estrella/Mean (mmHg): 120 (QS system process) : 76 (QS system process) : 92 (QS system process) Pulse: 81 (QS system process) LaborFlag: Antepartum (QS system process) Datetime: 05/19/2016 05:00 Stage of : Antepartum (Micheline Varela RN) Monitor Mode: External (Micheline Varela RN) Frequency (min): n/a (Micheline Varela RN) Quality: Mild (Micheline Varela RN) Resting Tone (Palpate): Relaxed (Micheline Varela RN) Monitor Mode: External US (Micheline Varela RN) Monitor Interventions for FHR: Ultrasound Adjusted (Micheline Varela RN) FHR Baseline Rate : 125 (Micheline Varela RN) FHR Baseline Changes: No Baseline Change (Micheline Varela RN) Variability: Moderate 6-25 bpm (Micheline Varela RN) Accelerations: None (Micheline Varela RN) Decelerations: None (Micheline Varela RN) Comments: RN at b/s adjusting US (Micheline Varela RN) Pain Coping: Sleeping (Micheline Varela RN) Pitocin (milliunit): Pitocin Increased to (milliunits) @ 4 (Micheline Varela RN) Communication: RN at Bedside; RN Reviewed Strip (Micheline Varela RN) Datetime: 05/19/2016 04:45 Stage of : Antepartum (Micheline Varela RN) Monitor Mode: External (Micheline Varela RN) Frequency (min): 2-3 (Micheline Varela RN) Quality: Mild/Moderate (Micheline Varela RN) Duration (sec): 50-80 (Micheline Varela RN) Resting Tone (Palpate): Relaxed (Micheline Varela RN) Monitor Mode: External US (Micheline Varela RN) FHR Baseline Rate : 130 (Micheline Varela RN) FHR Baseline Changes: No Baseline Change (Micheline Varela RN) Variability: Moderate 6-25 bpm (Micheline Varela RN) Accelerations: 15X15 (Micheline Varela RN) Decelerations: None (Micheline Varela RN) Pain Coping: Sleeping (Micheline Varela RN) Pitocin (milliunit): Pitocin Remains (milliunits) @ 2 (Micheline Varela RN) Communication: RN Reviewed Strip (Micheline Varela RN) Datetime: 05/19/2016 04:39 NBP Sys/Estrella/Mean (mmHg): 137 (QS system process) : 92 (QS system process) : 110 (QS system process) Pulse: 82 (QS system process) LaborFlag: Antepartum (QS system process) Datetime: 05/19/2016 04:30 Stage of : Antepartum (Micheline Varela RN) Monitor Mode: External (Micheline Varela RN) Frequency (min): 2-3 (Micheline Varela RN) Quality: Mild (Micheline Varela RN) Duration (sec): 60-80 (Micheline Varela RN) Resting Tone (Palpate): Relaxed (Micheline Varela RN) Monitor Mode: External US (Micheline Varela RN) FHR Baseline Rate : 130 (Micheline Varela RN) FHR Baseline Changes: No Baseline Change (Micheline Varela RN) Variability: Moderate 6-25 bpm (Micheline Varela RN) Accelerations: 15X15 (Micheline Varela RN) Decelerations: None (Micheline Varela RN) Pain Presence: None/Denies (Micheline Varela RN) Pitocin (milliunit): Pitocin Remains (milliunits) @ (Annotations: 2) (Micheline Varela RN) Communication: RN at Bedside; RN Reviewed Strip (Micheline Varela RN) LaborFlag: Antepartum (QS system process) Datetime: 05/19/2016 04:18 Pitocin (milliunit): Pitocin Started (milliunits) @ 2 (Micheline Varela RN) Antibiotics: Penicillin IV (Units) @ [id number] (Micheline Varela RN) IV/Blood Work: New IV Bag Hung (Micheline Varela RN) Datetime: 05/19/2016 04:13 I/O Interventions: Up to BR (Micheline Varela RN) Datetime: 05/19/2016 04:09 NBP Sys/Estrella/Mean (mmHg): 135 (QS system process) : 87 (QS system process) : 107 (QS system process) Pulse: 78 (QS system process) LaborFlag: Antepartum (QS system process) Datetime: 05/19/2016 04:00 Stage of : Antepartum (Micheline Varela RN) Monitor Mode: External (Micheline Varela RN) Frequency (min): 4-8 (Micheline Varela RN) Quality: Mild (Micheline Varela RN) Duration (sec): 60-90 (Micheline Varela RN) Resting Tone (Palpate): Relaxed (Micheline Varela RN) Monitor Mode: External US (Micheline Varela RN) FHR Baseline Rate : 130 (Micheline Varela RN) FHR Baseline Changes: No Baseline Change (Micheline Varela RN) Variability: Moderate 6-25 bpm (Micheline Varela RN) Accelerations: None (Micheline Varela RN) Decelerations: None (Micheline Varela RN) Pain Presence: None/Denies (Micheline Varela RN) Communication: RN Reviewed Strip (Micheline Varela RN) LaborFlag: Antepartum (QS system process) Datetime: 05/19/2016 03:39 NBP Sys/Estrella/Mean (mmHg): 135 (QS system process) : 82 (QS system process) : 103 (QS system process) Pulse: 82 (QS system process) LaborFlag: Antepartum (QS system process) Datetime: 05/19/2016 03:30 Stage of : Antepartum (Micheline Varela RN) Monitor Mode: External (Micheline Varela RN) Frequency (min): 5-7 (Micheline Varela RN) Quality: Mild (Micheline Varela RN) Duration (sec): 50-90 (Micheline Varela RN) Resting Tone (Palpate): Relaxed (Micheline Varela RN) Monitor Mode: External US (Micheline Varela RN) FHR Baseline Rate : 140 (Micheline Varela RN) FHR Baseline Changes: No Baseline Change (Micheline Varela RN) Variability: Moderate 6-25 bpm (Micheline Varela RN) Accelerations: 15X15 (Micheline Varela RN) Decelerations: None (Micheline aVrela RN) Pain Presence: None/Denies (Micheline Varela RN) Communication: RN Reviewed Strip (Micheline Varela RN) LaborFlag: Antepartum (QS system process) Datetime: 05/19/2016 03:09 NBP Sys/Estrella/Mean (mmHg): 129 (QS system process) : 86 (QS system process) : 103 (QS system process) Pulse: 78 (QS system process) LaborFlag: Antepartum (QS system process) Datetime: 05/19/2016 03:00 Stage of : Antepartum (Micheline Varela RN) Monitor Mode: External (Micheline Varela RN) Frequency (min): 3-7 (Micheline Varela RN) Quality: Mild (Micheline Varela RN) Duration (sec): 40-80 (Micheline Varela RN) Resting Tone (Palpate): Relaxed (Micheline Varela RN) Monitor Mode: External US (Micheline Varela RN) FHR Baseline Rate : 135 (Micheline Varela RN) FHR Baseline Changes: No Baseline Change (Micheline Varela RN) Variability: Moderate 6-25 bpm (Micheline Varela RN) Accelerations: 15X15 (Micheline Varela RN) Decelerations: None (Micheline Varela RN) Communication: RN at Bedside; RN Reviewed Strip (Micheline Varela RN) Datetime: 05/19/2016 02:39 NBP Sys/Estrella/Mean (mmHg): 128 (QS system process) : 81 (QS system process) : 98 (QS system process) Pulse: 82 (QS system process) LaborFlag: Antepartum (QS system process) Datetime: 05/19/2016 02:30 Stage of : Antepartum (Micheline Varela RN) Monitor Mode: External (Micheline Varela RN) Frequency (min): irreg (Micheline Varela RN) Quality: Mild (Micheline Varela RN) Resting Tone (Palpate): Relaxed (Micheline Varela RN) Monitor Mode: External US (Micheline Varela RN) FHR Baseline Rate : 135 (Micheline Varela RN) FHR Baseline Changes: No Baseline Change (Micheline Varela RN) Variability: Moderate 6-25 bpm (Micheline Varela RN) Accelerations: None (Micheline Varela RN) Decelerations: None (Micheline Varela RN) Communication: RN Reviewed Strip (Micheline Varela RN) Datetime: 05/19/2016 02:20 I/O Interventions: Popsicle (Micheline Varela RN) Datetime: 05/19/2016 02:09 NBP Sys/Estrella/Mean (mmHg): 151 (QS system process) : 83 (QS system process) : 110 (QS system process) Pulse: 97 (QS system process) LaborFlag: Antepartum (QS system process) Datetime: 05/19/2016 02:05 Bedside Blood Glucose: 63 L (QS system process) I/O Interventions: Up to BR (Micheline Varela RN) LaborFlag: Antepartum (QS system process) Datetime: 05/19/2016 02:00 Stage of : Antepartum (Micheline Varela RN) Monitor Mode: External (Micheline Varela RN) Frequency (min): 2-3 (Micheline Varela RN) Quality: Mild (Micheline Varela RN) Duration (sec): 40-70 (Micheline Varela RN) Resting Tone (Palpate): Relaxed (Micheline Varela RN) Monitor Mode: External US (Micheline Varela RN) FHR Baseline Rate : 140 (Micheline Varela RN) FHR Baseline Changes: No Baseline Change (Micheline Varela RN) Variability: Moderate 6-25 bpm (Micheline Varela RN) Accelerations: 15X15 (Micheline Varela RN) Decelerations: None (Micheline Varela RN) Pain Presence: None/Denies (Micheline Varela RN) Communication: RN Reviewed Strip (Micheline Varela RN) LaborFlag: Antepartum (QS system process) Datetime: 05/19/2016 01:30 Stage of : Antepartum (Micheline Varela RN) Monitor Mode: External (Micheline Varela RN) Monitor Interventions for UA: [place] Adjusted (Micheline Varela RN) Frequency (min): 3-5 (Micheline Varela RN) Quality: Mild (Micheline Varela RN) Duration (sec): 60-90 (Micheline Varela RN) Resting Tone (Palpate): Relaxed (Micheline Varela RN) Monitor Mode: External US (Micheline Varela RN) Monitor Interventions for FHR: Ultrasound Adjusted (Micheline Varela RN) FHR Baseline Rate : 145 (Micheline Varela RN) FHR Baseline Changes: No Baseline Change (Micheline Varela RN) Variability: Moderate 6-25 bpm (Micheline Varela RN) Accelerations: 15X15 (Micheline Varela RN) Decelerations: None (Micheline Varela RN) Pain Presence: None/Denies (Micheline Varela RN) Patient Position/Activity: Left Tilt; Semi-Fowlers (Micheline Varela RN) Communication: RN at Bedside; RN Reviewed Strip (Micheline Varela RN) LaborFlag: Antepartum (QS system process) Datetime: 05/19/2016 01:08 I/O Interventions: Up to BR (Micheline Varela RN) Datetime: 05/19/2016 01:00 Stage of : Antepartum (Micheline Varela RN) Monitor Mode: External (Micheline Varela RN) Frequency (min): 3-6 (Micheline Varela RN) Quality: Mild (Micheline Varela RN) Duration (sec): 50-90 (Micheline Varela RN) Resting Tone (Palpate): Relaxed (Micheline Varela RN) Monitor Mode: External US (Micheline Varela RN) Monitor Interventions for FHR: Ultrasound Adjusted (Micheline Varela RN) FHR Baseline Rate : 145 (Micheline Varela RN) FHR Baseline Changes: No Baseline Change (Micheline Varela RN) Variability: Moderate 6-25 bpm (Micheline Varela RN) Accelerations: 15X15 (Micheline Varela RN) Decelerations: None (Micheline Varela RN) Pain Presence: None/Denies (Micheline Varela RN) Patient Position/Activity: Left Tilt; Semi-Fowlers (Micheline Varela RN) Communication: RN at Bedside; RN Reviewed Strip (Micheline Varela RN) LaborFlag: Antepartum (QS system process) Datetime: 05/19/2016 00:36 Level of Consciousness: Fully Conscious (Micheline Varela RN) DTR's/Clonus: DTRs 2+; No Clonus (Micheline Varela RN) Headache: Denies (Micheline Varela RN) Breath Sounds, Left: Clear and Equal (Micheline Varela RN) Breath Sounds, Right: Clear and Equal (Micheline Varela RN) Nausea/Vomiting: Denies (Micheline Varela RN) RUQ Epigastric Pain: Denies (Micheline Varela RN) Datetime: 05/19/2016 00:32 Procedures: Consents Signed (Micheline Varela RN) Datetime: 05/19/2016 00:31 Antibiotics: Penicillin IV (Units) @ [id number] (Micheline Varela RN) IV/Blood Work: IV Started; IV Bolus Started; IV Infusing per Order; New IV Bag Hung (Micheline Varela RN) Datetime: 05/19/2016 00:30 Stage of : Antepartum (Micheline Varela RN) Monitor Mode: External (Micheline Varela RN) Frequency (min): 1.5-2 (Micheline Varela RN) Quality: Mild (Micheline Varela RN) Duration (sec): 50-80 (Micheline Varela RN) Resting Tone (Palpate): Relaxed (Micheline Varela RN) Monitor Mode: External US (Micheline Varela RN) FHR Baseline Rate : 140 (Micheline Varela RN) FHR Baseline Changes: No Baseline Change (Micheline Varela RN) Variability: Moderate 6-25 bpm (Micheline Varela RN) Accelerations: 15X15 (Micheline Varela RN) Decelerations: None (Micheline Varela RN) Pain Presence: None/Denies (Micheline Varela RN) Patient Position/Activity: Right Tilt; Semi-Fowlers (Micheline Varela RN) Instructional Method: Verbal; Patient Instructed; Verbalized Understanding (Micheline Varela RN) Plan of Care: Plan of Care Discussed (Micheline Varela RN) Unit Routine: [facility] to Room; Call Emanuel; Bed; Unit Personnel; Monitoring; IV Pumps (Micheline Varela RN) Communication: RN at Bedside; RN Reviewed Strip (Micheline Varela RN) LaborFlag: Antepartum (QS system process) Datetime: 05/19/2016 00:26 IV/Blood Work: Labs Drawn (Micheline Varela RN) Datetime: 05/19/2016 00:14 Communication Comments: Dr. Singer informed of pt's presence, SROM and vag exam. Orders received. (Megha Baird RN) Datetime: 05/19/2016 00:12 NBP Sys/Estrella/Mean (mmHg): 143 (QS system process) : 91 (QS system process) : 110 (QS system process) Pulse: 94 (QS system process) LaborFlag: OB Triage (QS system process) Datetime: 05/19/2016 00:10 Contraction Comments: TOCO applied and explained to pt (Micheline Varela RN) Monitor Mode: External US (Micheline Varela RN) Comments: monitors applied and explained to pt (Micheline Varela RN) Datetime: 05/19/2016 00:09 Dilatation (cm): 1.0 (Micheline Varela RN) Effacement (%): 50 (Micheline Varela RN) Station: -3 (Micheline Varela RN) Exam by: Zoe Persaud RN (Micheline Varela RN)
[2016-05-19] MEDS ORDERED: MISOPROSTOL 0.1 MG TABLET ONE (08:30)
--- NOTE | 2016-05-19 10:00 | L&D Flow Sheet ---
LD Flowsheet Datetime Report Generated by CPN: 05/19/2016 10:00 Datetime: 05/19/2016 09:37 I/O Interventions: Up to BR (Daylin Marhefka, RN) Datetime: 05/19/2016 09:30 Monitor Mode: External (Daylin Marhefka, RN) Frequency (min): 2-4 with irritability (Daylin George, RN) Quality: Mild (Daylin Marhefka, RN) Duration (sec): 40-70 (Daylin Marhefka, RN) Resting Tone (Palpate): Relaxed (Daylin Marhefka, RN) Monitor Mode: External US (Daylin Jackelynfka, RN) FHR Baseline Rate : 150 (Daylin Marhefka, RN) FHR Baseline Changes: No Baseline Change (Daylin Marhefka, RN) Variability: Moderate 6-25 bpm (Daylin Marhefka, RN) Accelerations: None (Daylin Marhefka, RN) Decelerations: Late; Variable (Daylin Marhefka, RN) Datetime: 05/19/2016 09:21 Patient Care Comments: Pt encouraged to lay all the way on her right side and ecouraged not to lay on her back. (Daylin Vazquez, RN) Datetime: 05/19/2016 09:10 NBP Sys/Estrella/Mean (mmHg): 150 (QS system process) : 98 (QS system process) : 119 (QS system process) Pulse: 93 (QS system process) Respirations: 16 (Daylin Marhefka, RN) Temperature (F): 98.2 (Daylin Marhefka, RN) Temperature (C): 36.8 (QS system process) Temperature Route: Oral (Daylin Marhefka, RN) LaborFlag: Antepartum (QS system process) Datetime: 05/19/2016 09:01 Pain Scale: 3 (Daylin Jackelynfbrenda, RN) Pain Presence: Intermittent (Daylin Jackelynfka, RN) Pain Type: Contraction (Daylin Jackelynfka, RN) Pain Location: Abdomen (Daylin Jackelynfka, RN) Pain Goal: 0 (Daylin Marhefka, RN) Pain Relief Measures: Comfort Measures (Daylin Marhefka, RN) Pain Coping: Breathing Through Contractions (Daylin Mardimafka, RN) LaborFlag: Antepartum (QS system process) Datetime: 05/19/2016 09:00 Monitor Mode: External (Daylin Marhefka, RN) Frequency (min): 1.5-4 (Daylin Marhefka, RN) Quality: Mild (Daylin Marhefka, RN) Duration (sec): 50-70 (Daylin Marhefka, RN) Resting Tone (Palpate): Relaxed (Daylin Marhefka, RN) Monitor Mode: External US (Daylin Haydenfbrenda, RN) FHR Baseline Rate : 140 (Daylin Marhefka, RN) FHR Baseline Changes: No Baseline Change (Daylin Marhefka, RN) Variability: Moderate 6-25 bpm (Daylin Marhefka, RN) Accelerations: None (Daylin Marhefka, RN) Decelerations: None (Daylin Marhefka, RN) Datetime: 05/19/2016 08:55 Antibiotics: Penicillin IV (Units) @ 2.5 Million units (Daylin Jackelynfka, RN) Datetime: 05/19/2016 08:42 NBP Sys/Estrella/Mean (mmHg): 137 (QS system process) : 96 (QS system process) : 112 (QS system process) Pulse: 93 (QS system process) Cervical Ripening Agents: Cytotec @ 50 MCG PO (Daylin Vazquez, RN) LaborFlag: Antepartum (QS system process) Datetime: 05/19/2016 08:35 NBP Sys/Estrella/Mean (mmHg): 122 (QS system process) : 81 (QS system process) : 96 (QS system process) Pulse: 91 (QS system process) LaborFlag: Antepartum (QS system process) Datetime: 05/19/2016 08:30 Monitor Mode: External (Daylin Vazquez RN) Frequency (min): 2-4 (Daylin Vazquez RN) Quality: Mild (Daylin Vazquez RN) Duration (sec): 40-90 (Daylin Vazquez RN) Resting Tone (Palpate): Relaxed (Daylin Vazquez RN) Monitor Interventions for FHR: Ultrasound Adjusted (Daylin Vazquez RN) Comments: RN @ bedside seaching for FHTs. (Daylin Vazquez RN) Datetime: 05/19/2016 08:11 I/O Interventions: Up to BR (Daylin Marhefka, RN) Datetime: 05/19/2016 08:09 NBP Sys/Estrella/Mean (mmHg): 145 (QS system process) : 99 (QS system process) : 117 (QS system process) Pulse: 94 (QS system process) LaborFlag: Antepartum (QS system process) Datetime: 05/19/2016 08:00 Monitor Mode: External (Daylin Marhefka, RN) Frequency (min): 2-6 (Daylin Marhefka, RN) Quality: Mild (Daylin Marhefka, RN) Duration (sec): 40-60 (Daylin Marhefka, RN) Resting Tone (Palpate): Relaxed (Daylin Vazquez RN) Monitor Mode: External US (Daylin Vazquez RN) FHR Baseline Rate : 140 (Daylin Vazquez RN) FHR Baseline Changes: No Baseline Change (Daylin Vazquez RN) Variability: Moderate 6-25 bpm (Daylin Vazquez RN) Accelerations: 10X10 (Daylin Vazquez RN) Decelerations: None (Daylin Vazquez RN)
[2016-05-19] MEDS ORDERED: PROMETHAZINE HCL INJ 25 MG/1 ML VIAL IV PRN (10:47)
[2016-05-19] MEDS ORDERED: NALBUPHINE HCL INJ 10 MG/1 ML AMPULE IV PRN (10:47)
[2016-05-19] MEDS ORDERED: DEXTROSE 5%-LACTATED RINGERS 300 ML IV PRN (10:51)
--- NOTE | 2016-05-19 12:01 | L&D Flow Sheet ---
LD Flowsheet Datetime Report Generated by CPN: 05/19/2016 12:00 Datetime: 05/19/2016 11:53 Dilatation (cm): 3.0 (Daylin Vazquez RN) Effacement (%): 70 (Daylin Vazquez RN) Station: -3 (Dyalin Vazquez RN) Exam by: Neville Vazquez RN (Daylin Vazquez RN) Vaginal Bleeding: Scant (Daylin Vazquez RN) Cervix, Consistency: Soft (Daylin Vazquez RN) Cervix, Position: Posterior (Daylin Vazquez RN) Datetime: 05/19/2016 11:37 IV/Blood Work: IV Bolus Started (Daylin Vazquez RN) I/O Interventions: Up to BR (Daylin Vazquez RN) Datetime: 05/19/2016 11:09 NBP Sys/Estrella/Mean (mmHg): 132 (QS system process) : 89 (QS system process) : 106 (QS system process) Pulse: 101 (QS system process) LaborFlag: Antepartum (QS system process) Datetime: 05/19/2016 11:00 Monitor Mode: External; Palpation (Daylin Vazquez RN) Frequency (min): 2-3 (Daylin Vazquez RN) Quality: Mild (Daylin Vazquez RN) Duration (sec): 50-80 (Daylin Vazquez RN) Resting Tone (Palpate): Relaxed (Daylin Vazquez RN) Monitor Mode: External US (Daylin Marhefka, RN) FHR Baseline Rate : 155 (Daylin Marhefka, RN) FHR Baseline Changes: No Baseline Change (Daylin Marhefka, RN) Variability: Moderate 6-25 bpm (Daylin Marhefka, RN) Accelerations: None (Daylin Marhefka, RN) Decelerations: None (Daylin Marhefka, RN) Datetime: 05/19/2016 10:51 Medication Comments: D5LR 300cc bolus hung (Daylin Marhefka, RN) Datetime: 05/19/2016 10:49 Patient Position/Activity: High Fowlers (Daylin Marhefka, RN) Datetime: 05/19/2016 10:41 I/O Interventions: Up to BR (Daylin Nassarka, RN) Datetime: 05/19/2016 10:39 NBP Sys/Estrella/Mean (mmHg): 141 (QS system process) : 96 (QS system process) : 114 (QS system process) Pulse: 99 (QS system process) LaborFlag: Antepartum (QS system process) Datetime: 05/19/2016 10:30 Monitor Mode: External (Daylin Vazquez, RN) Frequency (min): Irregular (Daylin Vazquez RN) Quality: Mild (Daylin Vazquez, RN) Duration (sec): 40-60 (Daylin Vazquez RN) Resting Tone (Palpate): Relaxed (Daylin Vazquez RN) Monitor Mode: External US (Daylin Vazquez RN) FHR Baseline Rate : 145 (Daylin Marhefka, RN) FHR Baseline Changes: No Baseline Change (Daylin Marhefka, RN) Variability: Moderate 6-25 bpm (Daylin Marhefka, RN) Accelerations: 15X15 (Daylin Marhefka, RN) Decelerations: None (Daylin Marhefka, RN) Datetime: 05/19/2016 10:09 NBP Sys/Estrella/Mean (mmHg): 139 (QS system process) : 104 (QS system process) : 118 (QS system process) Pulse: 101 (QS system process) LaborFlag: Antepartum (QS system process) Datetime: 05/19/2016 10:00 Monitor Mode: External (Daylin Vazquez, RN) Frequency (min): Irregular with irritability (Daylin Nassarka, RN) Quality: Mild (Daylin Jackelynfka, RN) Duration (sec): 40-50 (Daylin Jackelynfka, RN) Resting Tone (Palpate): Relaxed (Daylin Vazquez RN) Monitor Mode: External US (Daylin Vazquez, RN) FHR Baseline Rate : 150 (Daylin Vazquez RN) FHR Baseline Changes: No Baseline Change (Daylin Vazquez RN) Variability: Moderate 6-25 bpm (Daylin Vazquez RN) Accelerations: 10X10 (Daylin Vazquez RN) Decelerations: Late (Daylin Vazquez RN)
[2016-05-19] MEDS ORDERED: BENZOIN/ALOE VERA/STORAX/TOLU TINCTURE 60 ML TP PRN (12:19)
[2016-05-19] MEDS ORDERED: BUPIVACAINE HCL 0.25 % INJ/PF (2.5 MG/1 ML) 30 ML VIAL INFIL ONE (12:19)
[2016-05-19] MEDS ORDERED: FENTANYL/BUPIVACAINE/NS/PF 100 ML EPI PRN (12:19)
[2016-05-19] MEDS ORDERED: EPHEDRINE SULFATE INJ 50 MG/1 ML AMPULE ONE (12:21)
[2016-05-19] MEDS ORDERED: FENTANYL/BUPIVACAINE/NS/PF 200 MCG/100 ML RTUINJ EPI ONE (12:21)
[2016-05-19] MEDS ORDERED: BUPIVACAINE HCL 0.25 % INJ/PF (2.5 MG/1 ML) 30 ML VIAL ONE (12:21)
[2016-05-19] MEDS ORDERED: PROMETHAZINE HCL INJ 25 MG/1 ML VIAL ONE (12:37)
[2016-05-19] MEDS ORDERED: NALBUPHINE HCL INJ 10 MG/1 ML AMPULE ONE (12:37)
[2016-05-19] MEDS ORDERED: LIDOCAINE 1% INJ-PF (10 MG/ML) 30 ML SDV ONE (13:09)
[2016-05-19] MEDS ORDERED: MISOPROSTOL 0.2 MG TABLET ONE (13:09)
--- NOTE | 2016-05-19 14:00 | L&D Flow Sheet ---
LD Flowsheet Datetime Report Generated by CPN: 05/19/2016 14:00 Datetime: 05/19/2016 13:45 Stage of : Recovery (Daylin Ivonraisabrenda, RN) NBP Sys/Estrella/Mean (mmHg): 124 (QS system process) : 78 (QS system process) : 97 (QS system process) Pulse: 109 (QS system process) Respirations: 14 (Daylin Vazquez, RN) Datetime: 05/19/2016 13:44 Stage of : Recovery (Daylin Marhefka, RN) Pain Scale: 0 (Daylin Vazquez RN) Pain Presence: None/Denies (Daylin Vazquez RN) Pain Type: N/A (Daylin Vazquez RN) Pain Goal: 0 (Daylin Vazquez RN) Pain Relief Measures: Comfort Measures (Daylin Vazquez RN) Datetime: 05/19/2016 13:33 Comments: viable baby girl (Daylin Vazquez RN) Datetime: 05/19/2016 13:32 Monitor Mode: External US (Nathan Madden RN) Monitor Interventions for FHR: Ultrasound Adjusted (Nathan Madden RN) FHR Baseline Changes: Unable to Determine (Nathan Madden RN) Variability: Moderate 6-25 bpm (Nathan Madden RN) Accelerations: 15X15 (Nathan Madden RN) Decelerations: Variable (Nathan Madden RN) Comments: Broken tracing (Nathan Madden RN) Pushing Position: Pushing with Contractions; Pushing Lithotomy (Nathan Madden RN) Datetime: 05/19/2016 13:31 Pulse: 130 (QS system process) SpO2 (%): 100 (QS system process) LaborFlag: Antepartum (QS system process) Datetime: 05/19/2016 13:30 NBP Sys/Estrella/Mean (mmHg): 116 (QS system process) : 72 (QS system process) : 89 (QS system process) Pulse: 120 (QS system process) Temperature (F): 98.3 (Daylin Vazquez RN) Temperature (C): 36.8 (QS system process) Temperature Route: Oral (Daylin Vazquez RN) LaborFlag: Antepartum (QS system process) Datetime: 05/19/2016 13:26 Pulse: 114 (QS system process) SpO2 (%): 100 (QS system process) Dilatation (cm): 10.0 (Daylin George RN) Effacement (%): 100 (Daylin Jackelynfbrenda, RN) Station: 0 (Daylin Vazquez, RN) Exam by: David Poe CNM (Daylin Vazquez RN) LaborFlag: Antepartum (QS system process) Datetime: 05/19/2016 13:22 NBP Sys/Estrella/Mean (mmHg): 107 (QS system process) : 67 (QS system process) : 81 (QS system process) Pulse: 106 (QS system process) LaborFlag: Antepartum (QS system process) Datetime: 05/19/2016 13:21 Actions for Decelerations: Blood Pressure (Daylin Marhefka, RN) Datetime: 05/19/2016 13:19 Actions for Decelerations: Oxygen Applied; IV Bolus (Daylin Marhefka, RN) Datetime: 05/19/2016 13:18 Actions for Decelerations: Provider Reviewed Strip; Provider Notified (Daylin Marhefka, RN) Actions for Decelerations: Side to Side (Daylin Marhefka, RN) Datetime: 05/19/2016 13:17 Communication Comments: Rayshawn Poe CNChavez at bedside (Daylin Vazquez RN) Datetime: 05/19/2016 13:15 NBP Sys/Estrella/Mean (mmHg): 114 (QS system process) : 71 (QS system process) : 87 (QS system process) Pulse: 104 (QS system process) LaborFlag: Antepartum (QS system process) Datetime: 05/19/2016 13:14 Monitor Mode: External (Nathan Madden RN) Frequency (min): 2-3 (Nathan Madden RN) Quality: Moderate to Strong (Nathan Madden RN) Duration (sec): 60-80 (Nathan Madden RN) Duration Criteria: Less than Two 120 Second Contractions (Nathan Madden RN) Pattern: Normal: <= 5 Contractions in 10 Minutes (Nathan Madden RN) Resting Tone (Palpate): Relaxed (Nathan Madden RN) Monitor Mode: External US (Nathan Madden RN) Monitor Interventions for FHR: Ultrasound Adjusted (Nathan Madden RN) FHR Baseline Rate : 145 (Nathan Madden RN) Variability: Moderate 6-25 bpm (Nathan Madden RN) Accelerations: None (Nathan Madden RN) Decelerations: Variable (Nathan Madden RN) Comments: Broken tracing, questionable decelerations, RN at bedside repositioning pt and interventions (Nathan Madden RN) Communication: RN Reviewed Strip (Nathan Madden RN) Datetime: 05/19/2016 13:06 Dilatation (cm): 8.5 (Daylin Vazquez RN) Effacement (%): 100 (Daylin Vazquez RN) Station: 0 (Daylin Vazquez RN) Exam by: Neville Vazquez RN (Daylin Vazquez RN) Datetime: 05/19/2016 13:04 I/O Interventions: Wright Cath Inserted (Daylin Vazquez RN) Datetime: 05/19/2016 13:00 Monitor Mode: External; Palpation (Nathan Maryanne, RN) Frequency (min): 2-3 (Nathan Maryanne, RN) Quality: Moderate (Nathan Maryanne, RN) Duration (sec): 60-80 (Nathan Maryanne, RN) Resting Tone (Palpate): Relaxed (Nathan Maryanne, RN) Contraction Comments: pt off monitors (Nathan Veraeet, RN) Monitor Mode: External US (Nathan Maryanne, RN) FHR Baseline Rate : 145 (Nathan Maryanne, RN) Variability: Moderate 6-25 bpm (Nathan Maryanne, RN) Accelerations: 15X15 (Nathan Maryanne, RN) Decelerations: None (Nathan Maryanne, RN) Communication: RN Reviewed Strip (Nathan Maryanne, RN) Datetime: 05/19/2016 12:59 NBP Sys/Estrella/Mean (mmHg): 129 (QS system process) : 82 (QS system process) : 101 (QS system process) Pulse: 100 (QS system process) LaborFlag: Antepartum (QS system process) Datetime: 05/19/2016 12:58 NBP Sys/Estrella/Mean (mmHg): 130 (QS system process) : 84 (QS system process) : 101 (QS system process) Pulse: 105 (QS system process) LaborFlag: Antepartum (QS system process) Datetime: 05/19/2016 12:57 NBP Sys/Estrella/Mean (mmHg): 128 (QS system process) : 78 (QS system process) : 94 (QS system process) Pulse: 114 (QS system process) LaborFlag: Antepartum (QS system process) Datetime: 05/19/2016 12:54 NBP Sys/Estrella/Mean (mmHg): 151 (QS system process) NBP Sys/Estrella/Mean (mmHg): 148 (QS system process) : 93 (QS system process) : 87 (QS system process) : 114 (QS system process) : 112 (QS system process) Pulse: 108 (QS system process) Pulse: 106 (QS system process) LaborFlag: Antepartum (QS system process) Datetime: 05/19/2016 12:53 NBP Sys/Estrella/Mean (mmHg): 151 (QS system process) : 92 (QS system process) : 116 (QS system process) Pulse: 105 (QS system process) LaborFlag: Antepartum (QS system process) Datetime: 05/19/2016 12:52 Anesthesia Plans: Epidural (Daylin George, RN) Epidural Procedure: Test Dose (Daylin George, RN) Datetime: 05/19/2016 12:51 Pulse: 103 (QS system process) SpO2 (%): 100 (QS system process) LaborFlag: Antepartum (QS system process) Datetime: 05/19/2016 12:50 Procedure Type: epidural (Daylin Vazquez, RN) Anesthesia Plans: Epidural (Daylin Vazquez, RN) Epidural Positioning: Sitting (Daylin Vazquez, RN) Datetime: 05/19/2016 12:49 Patient Care Comments: maternal hr verified by placement of pulse ox (Daylinakua Vazquez RN) Datetime: 05/19/2016 12:43 Procedure Verify: Correct Patient Identity; Correct Side and Site are Marked; Accurate Procedure Consent Form (Daylin Vazquez RN) Anesthesia Plans: Epidural (Daylin Vazquez RN) Epidural Positioning: Sitting (Daylin Vazquez RN) Anesthesia Comments: Dr Mijares at bedside (Daylin Vazquez RN) Instructional Method: Patient Instructed (Daylin Vazquez RN) Pain Management: Epidural (Daylin Vazquez RN) Datetime: 05/19/2016 12:40 Analgesics/Sedatives: Nubain (mg) @ 10; Phenergan (mg) @ 12.5 (Daylin Vazquez RN) Datetime: 05/19/2016 12:32 Communication Comments: Dr. Macdonald @ bedside with ultrasound verifying that baby is vertex (Daylin Vazquez, RN) Datetime: 05/19/2016 12:30 Monitor Mode: External (Nathan Maryanne, RN) Frequency (min): 2-3 (Nathan Maryanne, RN) Quality: Moderate (Nathan Maryanne, RN) Duration (sec): 60-80 (Nathan Maryanne, RN) Duration Criteria: Less than Two 120 Second Contractions (Nathan Maryanne, RN) Pattern: Normal: <= 5 Contractions in 10 Minutes (Nathan Maryanne, RN) Resting Tone (Palpate): Relaxed (Nathan Maryanen, RN) Monitor Mode: External US (Nathan Maryanne, RN) FHR Baseline Rate : 150 (Nathan Maryanne, RN) Variability: Moderate 6-25 bpm (Nathan Maryanne, RN) Accelerations: Prolonged (Nathan Maryanne, RN) Decelerations: None (Nathan Maryanne, RN) Communication: RN Reviewed Strip (Nathan Maryanne, RN) Datetime: 05/19/2016 12:19 Dilatation (cm): 4.5 (Daylin Vazquez RN) Effacement (%): 80 (Daylin Vazquez RN) Station: -1 (Daylin Vazquez RN) Exam by: David Poe CNM (Daylin Vazquez, RN) Datetime: 05/19/2016 12:15 Communication Comments: David PoeNEREIDA @ bedside. (Daylin Vazquez, RN) Datetime: 05/19/2016 12:00 Monitor Mode: External; Palpation (Nathan Madden RN) Frequency (min): irregular (Nathan Madden RN) Quality: Mild/Moderate (Nathan Madden RN) Resting Tone (Palpate): Relaxed (Nathan Madden RN) Monitor Mode: External US (Nathan Madden RN) FHR Baseline Rate : 150 (Nathan Madden RN) Variability: Moderate 6-25 bpm (Nathan Madden RN) Accelerations: 10X10 (Nathan Madden RN) Decelerations: None (Nathan Madden RN) Communication: RN Reviewed Strip (Nathan Madden RN)
--- NOTE | 2016-05-19 15:06 | Admission Physical ---
Datetime Report Generated by CPN: 05/19/2016 15:06 CURRENT ADMISSION Chief Complaint: Uterine Contractions; Suspected Ruptured Membranes Indication for Induction: Not Applicable Admit Plan: Admit to Unit ALLERGIES Medication Allergies: No Medication Allergies: No Known Allergies (05/19/2016) Latex: No Latex Allergies Food Allergies: NONE Environmental Allergies: NONE OBSTETRICAL HISTORY EDC: 06/12/2016 00:00 : 10 Para: 4 Term: 4 : 0 SAB: 0 IAB: 5 Ectopic: 0 Livin Cesareans: 0 VBACs: 0 Multiple Births: 0 Gestational Diabetes: No Rh Sensitization: No Incompetent Cervix: No BETINA: No Infertility: No ART Treatment: No Uterine Anomaly: No IUGR: No Hx Previous C/S: No Macrosomia: No Hx Loss/Stillborn: No PIH: No Hx : No Placenta Previa/Abruption: No Depression/PP Depression: Yes PTL/PROM: No Post Hemorrhage: No Current Procedures: Ultrasound SEE RECORDS Alcohol: No Marijuana : No Cocaine: No Other Illicit Drugs: No Cigarettes: Never Smoker. [id number] MEDICAL HISTORY Diabetes: No Diabetes Type: Gestational Diabetes Blood Transfusion: No Pulmonary Disease (Asthma, TB): No Breast Disease: No Hypertension: Yes Vascular Tech Surgery: No Heart Disease: No Hosp/Surgery: Yes Autoimmune Disorder: No Anesthetic Complications: No Kidney Disease: No Abnormal Pap Smear: No Neuro/Epilepsy: No Psychiatric Disorders: No Other Medical Diseases: No Hepatitis/Liver Disease: No Significant Family History: No Varicosities/Phlebitis: No Trauma/Violence : No Thyroid Dysfunction: No Medical History Comments: HTN- prior to , depression periodically, vaginal mesh implant 2008, hospitalized with childbirth, gallbladder removal 2013 INFECTIOUS HISTORY Gonorrhea: Yes Genital Herpes: No Chlamydia: No Tuberculosis: No Syphilis: No Hepatitis: No HIV/AIDS Exposure: No Rash or Viral Illness: No HPV: No Infectious History Comments: ` PHYSICAL EXAM General: Normal HEENT: Normal Neurologic: Normal Thyroid: Normal Heart: Normal Lungs: Normal Breast: Deferred Back: Normal Abdomen: Normal Genitourinary Exam: Normal Extremities: Normal DTRs: Normal Pelvic Type: Adequate Vital Signs: Reviewed VAGINAL EXAM Dilatation: 1 Effacement: 50 Station: -2 MEMBRANES Pooling: Positive Membranes: Ruptured Amniotic Fluid Color: Clear FETUS A EGA: 36.4 Monitoring: External US FHR- Baseline: 130 Variability: Minimal - Undetectable to <=5bpm Accelerations: 10X10 Decelerations: None Presentation: Vertex PLANS FOR LABOR AND DELIVERY Labor and Delivery: None Pain Management: None Feeding Preference: Breast Benefit of Breast Feed Discussed: Yes Circumcision: N/A INFORMED CONSENT Signature: with User ID: [email or web address]
[2016-05-19] MEDS ORDERED: MEASLES,MUMPS&RUBELLA VACC/PF 0.5 ML VIAL SUBCUT PRN (15:20)
[2016-05-19] MEDS ORDERED: DIPH/PERTUSS(ACELL)/TETANUS VAC/PF 0.5 ML SYR (>=10YO) IM PRN (15:20)
[2016-05-19] MEDS ORDERED: ACETAMINOPHEN WITH CODEINE #3 TABLET PO PRN ×2 (15:20)
[2016-05-19] MEDS ORDERED: DIBUCAINE 1% OINTMENT 28 GM TP PRN (15:20)
[2016-05-19] MEDS ORDERED: BENZOCAINE/MENTHOL AEROSOL SPRAY 56 ML TOP PRN (15:20)
[2016-05-19] MEDS ORDERED: ZOLPIDEM TARTRATE 5 MG TABLET PO PRN (15:20)
--- NOTE | 2016-05-19 15:32 | Delivery Summary ---
Del Sum A-C Datetime Report Generated by CPN: 05/19/2016 15:32 ADMISSION DATA Chief Complaint: Uterine Contractions; Suspected Ruptured Membranes Indication for Induction: Not Applicable Admission Impression: , Intrauterine ; Ruptured Membranes DELIVERY PERSONNEL Delivery Doctor:: Marian Poe CNM Anesthesiologist:: Simón Mijares MD Labor and Delivery Nurse:: Daylin Vazquez RNlead sewage plant operator Nurse:: HI Tyson Nursery Nurse:: HI Tyson Parking Lot Spotter/NURSE STAFF INDUSTRIAL: Corina Durham CNA II Additional Personnel: : Scotty Kurtz RN MATERNAL INFORMATION Delivery Anesthesia: Epidural Medications After Delivery: Pitocin Bolus-Please Comment Meds After Delivery Comment: 20 Units Pitocin/1000ml NS Bolus Estimated Blood Loss (ml): 250 Maternal Complications: None Other Maternal Complications: GDM, Gestational HTN Provider Comments: SVDVF over intact perineum, BARTOLO with tight shoulders. vigorous, to mothers abd, cord clamped x 2 cut, infant to warmer for assessment. No lacs. Placenta intact via Poe mech, EBL 250, Apgars 8,9. Mother and infant stable. LABOR SUMMARY EDC: 06/12/2016 00:00 No. Babies in Womb: 0 Attempted: No Labor Anesthesia: Epidural LABOR INFORMATION Reason for Induction: Premature Rupture of Membranes Onset of Labor: 05/19/2016 11:53 Complete Dilatation: 05/19/2016 13:26 Cervical Ripening Agents: Cytotec @ Oxytocin: Induction Group B Beta Strep: Unknown Antibiotics # of Doses: 3 Antibiotics Time of Last Dose: 854 Name of Antibiotic Given: Penicillin Steroids Given: None Reason Steroids Not Administered: Not Applicable MEMBRANES Membranes Rupture Method: Spontaneous Rupture of Membranes: 05/18/2016 23:00 Length of Rupture (hr): 14.55 Amniotic Fluid Color: Clear Amniotic Fluid Amount: Copious Amniotic Fluid Odor: Normal STAGES OF LABOR Stage 1 hr: 1 Stage 1 min: 33 Stage 2 hr: 0 Stage 2 min: 7 Stage 3 hr: 0 Stage 3 min: 6 Total Time in Labor hr: 1 Total Time in Labor min: 46 VAGINAL DELIVERY Episiotomy: None Laceration Extension: N/A Laceration Type: None Laceration Repair: Not Applicable Laceration Repair Note: none Sponge Count Correct: N/A Sharps Count Correct: N/A BABY A INFORMATION Delivery Date/Time: 05/19/2016 13:33 Method of Delivery: Vaginal Born in Route : No : N/A Forceps: N/A Vacuum Extraction: N/A Shoulder Dystocia : Yes SHOULDER DYSTOCIA BABY A Delivery of Head: 05/19/2016 13:32 Time Head to Delivery : 1.0 1st Intervention to Resolve: McRobert's Maneuver 2nd Intervention to Resolve: Suprapubic Pressure Verify NO Fundal Pressure: No Fundal Pressure Applied Arm Under Symphisis at Del: Left PRESENTATION/POSITION BABY A Presentation: Cephalic Cephalic Presentation: Vertex Vertex Position: Right Occipital Anterior Breech Presentation: N/A PLACENTA INFORMATION BABY A Placenta Delivery Time : 05/19/2016 13:39 Placenta Method of Delivery: Spontaneous Placenta Status: Delivered SCORES BABY A Heart Rate 1 min: >100 bpm Resp Effort 1 min: Good Cry Reflex Irritability 1 min: Cough or Sneeze or Pulls Away Muscle Tone 1 min: Some Flexion of Extremities Color 1 min: Body Central High, Extremities Blue Resuscitation Effort 1 min: Tactile Stimulation SCORE 1 MIN: 8 Heart Rate 5 min: >100 bpm Resp Effort 5 min: Good Cry Reflex Irritability 5 min: Cough or Sneeze or Pulls Away Muscle Tone 5 min: Active Motion Color 5 min: Body Central High, Extremities Blue Resuscitation Effort 5 min: Tactile Stimulation SCORE 5 MIN: 9 INFORMATION BABY A Gestational Age at Delivery: 36.4 Gestational Status: Late - 34- 36.6 Weeks Outcome : Liveborn Infant Condition : Stable Infant Sex: Female IDENTIFICATION BABY A Verification Date/Time: 05/19/2016 13:42 ID Band Number: [id number] Mother's Name Verified: Yes RN Verifying Infant: Sofya Atkinson RN S Maryanne RN WEIGHT/LENGTH BABY A Infant Birthweight (gm): 3480 Infant Weight (lb): 7 Weight (oz): 11 Infant Length (in): 20.00 Infant Length (cm): 50.80 CORD INFORMATION BABY A No. Cord Vessels: 3 Nuchal Cord : N/A Cord Blood Taken: Yes-For Storage (Mom's Blood type +) Suction: Mouth; Nose ASSESSMENT BABY A Complications: Polyhydramnios Physical Findings at Delivery: Caput Succedaneum Infant Respirations: Intercostal Retractions; Nasal Flaring Skin to Skin: No Cork Compounder/ALS Called : No Infant Care By: Mercedez Bellavance, RNC Transferred To: Nursery BABY B INFORMATION : N/A SIGNATURES Assignment: Isaac Macdonald DO Signature: with User ID: [email or web address] : with User ID: [email or web address] : I was personally available for consultation and serving as supervising physician for the [facility].
[2016-05-19] MEDS ORDERED: IBUPROFEN 800 MG TABLET PO ONE (16:00)
[2016-05-19] MEDS: FERROUS SULFATE 325 MG TABLET PO SCH (18:01)
[2016-05-19] MEDS: DOCUSATE SODIUM 100 MG CAPSULE PO SCH (18:01)
--- NOTE | 2016-05-19 19:01 | L&D Flow Sheet ---
LD Flowsheet Datetime Report Generated by CPN: 05/19/2016 19:00 Datetime: 05/19/2016 14:50 Stage of : Recovery (Daylin Vazquez, RN) Datetime: 05/19/2016 14:45 Stage of : Recovery (Daylin Del Valledimavanessa, RN) NBP Sys/Estrella/Mean (mmHg): 140 (QS system process) : 87 (QS system process) : 110 (QS system process) Pulse: 101 (QS system process) Pain Scale: 0 (Daylin Vazquez RN) Pain Presence: None/Denies (Daylin Vazquez RN) Pain Type: N/A (Daylin Vazquez RN) Pain Goal: 0 (Daylin Vazquez RN) Pain Relief Measures: Comfort Measures (Daylin Vazquez RN) Datetime: 05/19/2016 14:30 Stage of : Recovery (Daylin Vazquez RN) NBP Sys/Estrella/Mean (mmHg): 137 (QS system process) : 81 (QS system process) : 101 (QS system process) Pulse: 103 (QS system process) Datetime: 05/19/2016 14:15 Stage of : Recovery (Daylin Vazquez RN) NBP Sys/Estrella/Mean (mmHg): 128 (QS system process) : 79 (QS system process) : 98 (QS system process) Pulse: 97 (QS system process) Datetime: 05/19/2016 14:01 Stage of : Recovery (Adylin Jackelynfbrenda, RN) Pain Scale: 0 (Daylin Haydenbrenda, RN) Pain Presence: None/Denies ([facility]) Pain Type: N/A (Daylin Jackelynfbrenda, RN) Pain Goal: 0 (Daylin Jackelynfka, RN) Pain Relief Measures: Comfort Measures (Daylin Ivonhefbrenda, RN) Datetime: 05/19/2016 14:00 NBP Sys/Estrella/Mean (mmHg): 127 (QS system process) : 74 (QS system process) : 97 (QS system process) Pulse: 106 (QS system process) Datetime: 05/19/2016 13:45 Stage of : Recovery (Daylin Marhefka, RN) NBP Sys/Estrella/Mean (mmHg): 124 (QS system process) : 78 (QS system process) : 97 (QS system process) Pulse: 109 (QS system process) Respirations: 14 (Daylin Marhefka, RN) Datetime: 05/19/2016 13:44 Stage of : Recovery (Daylin Marhefka, RN) Pain Scale: 0 (Daylin Marhefka, RN) Pain Presence: None/Denies (Dayiln Marhefka, RN) Pain Type: N/A (Daylin Marhefka, RN) Pain Goal: 0 (Daylin Marhefka, RN) Pain Relief Measures: Comfort Measures (Daylin Marhefka, RN) Datetime: 05/19/2016 13:33 Comments: viable baby girl (Daylin Marhefka, RN) Datetime: 05/19/2016 13:32 Monitor Mode: External US (Nathan Madden, RN) Monitor Interventions for FHR: Ultrasound Adjusted (Nathan Madden, RN) FHR Baseline Changes: Unable to Determine (Nathan Madden, RN) Variability: Moderate 6-25 bpm (Nathan Mccordt, RN) Accelerations: 15X15 (Nathan Veraeet, RN) Decelerations: Variable (Nathan Mccordt, RN) Comments: Broken tracing (Nathan Madden, RN) Pushing Position: Pushing with Contractions; Pushing Lithotomy (Nathan Mccordt, RN) Datetime: 05/19/2016 13:31 Pulse: 130 (QS system process) SpO2 (%): 100 (QS system process) LaborFlag: Antepartum (QS system process) Datetime: 05/19/2016 13:30 NBP Sys/Estrella/Mean (mmHg): 116 (QS system process) : 72 (QS system process) : 89 (QS system process) Pulse: 120 (QS system process) Temperature (F): 98.3 (Daylin Vazquez RN) Temperature (C): 36.8 (QS system process) Temperature Route: Oral (Daylin Vazquez RN) LaborFlag: Antepartum (QS system process) Datetime: 05/19/2016 13:26 Pulse: 114 (QS system process) SpO2 (%): 100 (QS system process) Dilatation (cm): 10.0 (Daylin Vazquez RN) Effacement (%): 100 (Daylin Vazquez RN) Station: 0 (Daylin Vazquez RN) Exam by: David Poe CNM (Daylin Vazquez RN) LaborFlag: Antepartum (QS system process) Datetime: 05/19/2016 13:22 NBP Sys/Estrella/Mean (mmHg): 107 (QS system process) : 67 (QS system process) : 81 (QS system process) Pulse: 106 (QS system process) LaborFlag: Antepartum (QS system process) Datetime: 05/19/2016 13:21 Actions for Decelerations: Blood Pressure (Daylin Marhefka, RN) Datetime: 05/19/2016 13:19 Actions for Decelerations: Oxygen Applied; IV Bolus (Daylin Marhefka, RN) Datetime: 05/19/2016 13:18 Actions for Decelerations: Provider Reviewed Strip; Provider Notified (Daylin Marhefka, RN) Actions for Decelerations: Side to Side (Daylin Marhefka, RN) Datetime: 05/19/2016 13:17 Communication Comments: K Poe CNM at bedside (Daylin Mardimafka, RN) Datetime: 05/19/2016 13:15 NBP Sys/Estrella/Mean (mmHg): 114 (QS system process) : 71 (QS system process) : 87 (QS system process) Pulse: 104 (QS system process) LaborFlag: Antepartum (QS system process) Datetime: 05/19/2016 13:14 Monitor Mode: External (Nathan Madden RN) Frequency (min): 2-3 (Nathan Madden RN) Quality: Moderate to Strong (Nathan Madden RN) Duration (sec): 60-80 (Nathan Madden RN) Duration Criteria: Less than Two 120 Second Contractions (Nathan Madden RN) Pattern: Normal: <= 5 Contractions in 10 Minutes (Nathan Madden RN) Resting Tone (Palpate): Relaxed (Nathan Madden RN) Monitor Mode: External US (Nathan Madden RN) Monitor Interventions for FHR: Ultrasound Adjusted (Nathan Madden RN) FHR Baseline Rate : 145 (Nathan Madden RN) Variability: Moderate 6-25 bpm (Nathan Madden RN) Accelerations: None (Nathan Madden RN) Decelerations: Variable (Nathan Madden RN) Comments: Broken tracing, questionable decelerations, RN at bedside repositioning pt and interventions (Nathan Madden RN) Communication: RN Reviewed Strip (Nathan Madden RN) Datetime: 05/19/2016 13:06 Dilatation (cm): 8.5 (Daylin Marhefka, RN) Effacement (%): 100 (Daylin Vazquez RN) Station: 0 (Daylin Vazquez RN) Exam by: Neville Vazquez RN (Daylin Vazquez RN) Datetime: 05/19/2016 13:04 I/O Interventions: Wright Cath Inserted (Daylin Vazquez RN) Datetime: 05/19/2016 13:00 Monitor Mode: External; Palpation (Nathan Madden RN) Frequency (min): 2-3 (Nathan Madden RN) Quality: Moderate (Nathan Madden RN) Duration (sec): 60-80 (Nathan Madden RN) Resting Tone (Palpate): Relaxed (Nathan Madden RN) Contraction Comments: pt off monitors (Nathan Madden RN) Monitor Mode: External US (Nathan Madden RN) FHR Baseline Rate : 145 (Nathan Madden RN) Variability: Moderate 6-25 bpm (Nathan Maryanne, RN) Accelerations: 15X15 (Nathan Maryanne, RN) Decelerations: None (Nathan Maryanne, RN) Communication: RN Reviewed Strip (Nathan Maryanne, RN) Datetime: 05/19/2016 12:59 NBP Sys/Estrella/Mean (mmHg): 129 (QS system process) : 82 (QS system process) : 101 (QS system process) Pulse: 100 (QS system process) LaborFlag: Antepartum (QS system process) Datetime: 05/19/2016 12:58 NBP Sys/Estrella/Mean (mmHg): 130 (QS system process) : 84 (QS system process) : 101 (QS system process) Pulse: 105 (QS system process) LaborFlag: Antepartum (QS system process) Datetime: 05/19/2016 12:57 NBP Sys/Estrella/Mean (mmHg): 128 (QS system process) : 78 (QS system process) : 94 (QS system process) Pulse: 114 (QS system process) LaborFlag: Antepartum (QS system process) Datetime: 05/19/2016 12:54 NBP Sys/Estrella/Mean (mmHg): 151 (QS system process) NBP Sys/Estrella/Mean (mmHg): 148 (QS system process) : 93 (QS system process) : 87 (QS system process) : 114 (QS system process) : 112 (QS system process) Pulse: 108 (QS system process) Pulse: 106 (QS system process) LaborFlag: Antepartum (QS system process) Datetime: 05/19/2016 12:53 NBP Sys/Estrella/Mean (mmHg): 151 (QS system process) : 92 (QS system process) : 116 (QS system process) Pulse: 105 (QS system process) LaborFlag: Antepartum (QS system process) Datetime: 05/19/2016 12:52 Anesthesia Plans: Epidural (Daylin Marhefka, RN) Epidural Procedure: Test Dose (Daylin Mardimafka, RN) Datetime: 05/19/2016 12:51 Pulse: 103 (QS system process) SpO2 (%): 100 (QS system process) LaborFlag: Antepartum (QS system process) Datetime: 05/19/2016 12:50 Procedure Type: epidural (Daylin Vazquez RN) Anesthesia Plans: Epidural (Daylin Vazquez RN) Epidural Positioning: Sitting (Daylin Vazquez RN) Datetime: 05/19/2016 12:49 Patient Care Comments: maternal hr verified by placement of pulse ox (Daylin Vazquez RN) Datetime: 05/19/2016 12:43 Procedure Verify: Correct Patient Identity; Correct Side and Site are Marked; Accurate Procedure Consent Form (Daylin Vazquez RN) Anesthesia Plans: Epidural (Daylin Vazquez RN) Epidural Positioning: Sitting (Daylin Vazquez RN) Anesthesia Comments: Dr Mijares at bedside (Daylin Vazquez RN) Instructional Method: Patient Instructed (Daylin Vazquez RN) Pain Management: Epidural (Daylin Vazquez RN) Datetime: 05/19/2016 12:41 IV/Blood Work: New IV Bag Hung (Daylin Marhefka, RN) Datetime: 05/19/2016 12:40 Analgesics/Sedatives: Nubain (mg) @ 10; Phenergan (mg) @ 12.5 (Daylin Marhefka, RN) Datetime: 05/19/2016 12:32 Communication Comments: Dr. Macdonald @ bedside with ultrasound verifying that baby is vertex (Daylin Marhefka, RN) Datetime: 05/19/2016 12:30 Monitor Mode: External (Nathan Maryanne, RN) Frequency (min): 2-3 (Nathan Maryanne, RN) Quality: Moderate (Nathan Maryanne, RN) Duration (sec): 60-80 (Nathan Maryanne, RN) Duration Criteria: Less than Two 120 Second Contractions (Nathan Maryanne, RN) Pattern: Normal: <= 5 Contractions in 10 Minutes (Nathan Maryanne, RN) Resting Tone (Palpate): Relaxed (Nathan Maryanne, RN) Monitor Mode: External US (Nathan Maryanne, RN) FHR Baseline Rate : 150 (Nathan Maryanne, RN) Variability: Moderate 6-25 bpm (Nathan Maryanne, RN) Accelerations: Prolonged (Nathan Maryanne, RN) Decelerations: None (Nathan Maryanne, RN) Communication: RN Reviewed Strip (Nathan Maryanne, RN) Datetime: 05/19/2016 12:19 Dilatation (cm): 4.5 (Daylin Vazquez, RN) Effacement (%): 80 (Daylin Vazquez RN) Station: -1 (Daylin Vazquez RN) Exam by: David Poe CNM (Daylin Ivonirais, RN) Datetime: 05/19/2016 12:15 Communication Comments: David Poe CNM @ bedside. (Daylin Vazquez RN) Datetime: 05/19/2016 12:00 Monitor Mode: External; Palpation (Nathan Madden RN) Frequency (min): irregular (Nathan Madden RN) Quality: Mild/Moderate (Nathan Madden RN) Resting Tone (Palpate): Relaxed (Nathan Madden RN) Monitor Mode: External US (Nathan Madden RN) FHR Baseline Rate : 150 (Nathan Madden RN) Variability: Moderate 6-25 bpm (aNthan Madden RN) Accelerations: 10X10 (Nathan Madden RN) Decelerations: None (Nathan Madden RN) Communication: RN Reviewed Strip (Nathan Madden RN) Datetime: 05/19/2016 11:53 Dilatation (cm): 3.0 (Daylin Vazquez RN) Effacement (%): 70 (Daylin Vazquez RN) Station: -3 (Daylin Vazquez RN) Exam by: Neville Vazquez RN (Daylin Vazquez RN) Vaginal Bleeding: Scant (Daylin Vazquez RN) Cervix, Consistency: Soft (Daylin Vazquez RN) Cervix, Position: Posterior (Daylin Vazquez RN) Datetime: 05/19/2016 11:37 IV/Blood Work: IV Bolus Started (Daylin Vazquez RN) I/O Interventions: Up to BR (Daylin Vazquez RN) Datetime: 05/19/2016 11:30 Monitor Mode: External; Palpation (Nathan Maryanne, RN) Frequency (min): 2-3 (Nathan Maryanne, RN) Quality: Moderate (Nathan Maryanne, RN) Duration (sec): 60-80 (Nathan Maryanne, RN) Resting Tone (Palpate): Relaxed (Nathan Maryanne, RN) Monitor Mode: External US (Nathan Maryanne, RN) FHR Baseline Rate : 145 (Nathan Maryanne, RN) Variability: Minimal - Undetectable to <=5 bpm (Nathan Maryanne, RN) Accelerations: None (Nathan Maryanne, RN) Decelerations: Early (Nathan Maryanne, RN) Communication: RN Reviewed Strip (Nathan Maryanne, RN) Datetime: 05/19/2016 11:09 NBP Sys/Estrella/Mean (mmHg): 132 (QS system process) : 89 (QS system process) : 106 (QS system process) Pulse: 101 (QS system process) LaborFlag: Antepartum (QS system process) Datetime: 05/19/2016 11:00 Monitor Mode: External; Palpation (Daylin Marhefka, RN) Frequency (min): 2-3 (Daylin Marhefka, RN) Quality: Mild (Daylin Marhefka, RN) Duration (sec): 50-80 (Daylin Marhefka, RN) Resting Tone (Palpate): Relaxed (Daylin Marhefka, RN) Monitor Mode: External US (Daylin Marhefka, RN) FHR Baseline Rate : 155 (Daylin Marhefka, RN) FHR Baseline Changes: No Baseline Change (Daylin Marhefka, RN) Variability: Moderate 6-25 bpm (Daylin Marhefka, RN) Accelerations: None (Daylin Marhefka, RN) Decelerations: None (Daylin Marhefka, RN) Datetime: 05/19/2016 10:51 Medication Comments: D5LR 300cc bolus hung (Daylin Marhefka, RN) Datetime: 05/19/2016 10:49 Patient Position/Activity: High Fowlers (Daylin Marhefka, RN) Datetime: 05/19/2016 10:41 I/O Interventions: Up to BR (Daylin Marhefka, RN) Datetime: 05/19/2016 10:39 NBP Sys/Estrella/Mean (mmHg): 141 (QS system process) : 96 (QS system process) : 114 (QS system process) Pulse: 99 (QS system process) LaborFlag: Antepartum (QS system process) Datetime: 05/19/2016 10:30 Monitor Mode: External (Daylin Marhefka, RN) Frequency (min): Irregular (Daylin Marhefka, RN) Quality: Mild (Daylin Marhefka, RN) Duration (sec): 40-60 (Daylin Marhefka, RN) Resting Tone (Palpate): Relaxed (Daylin Marhefka, RN) Monitor Mode: External US (Daylin Marhefka, RN) FHR Baseline Rate : 145 (Daylin Marhefka, RN) FHR Baseline Changes: No Baseline Change (Daylin Marhefka, RN) Variability: Moderate 6-25 bpm (Daylin Marhefka, RN) Accelerations: 15X15 (Daylin Marhefka, RN) Decelerations: None (Daylin Marhefka, RN) Datetime: 05/19/2016 10:09 NBP Sys/Estrella/Mean (mmHg): 139 (QS system process) : 104 (QS system process) : 118 (QS system process) Pulse: 101 (QS system process) LaborFlag: Antepartum (QS system process) Datetime: 05/19/2016 10:00 Monitor Mode: External (Daylin Marhefka, RN) Frequency (min): Irregular with irritability (Daylin Marhefka, RN) Quality: Mild (Daylin Marhefka, RN) Duration (sec): 40-50 (Daylin Marhefka, RN) Resting Tone (Palpate): Relaxed (Daylin Marhefka, RN) Monitor Mode: External US (Daylin Marhefka, RN) FHR Baseline Rate : 150 (Daylin Marhefka, RN) FHR Baseline Changes: No Baseline Change (Daylin Marhefka, RN) Variability: Moderate 6-25 bpm (Daylin Marhefka, RN) Accelerations: 10X10 (Daylin Marhefka, RN) Decelerations: Late (Daylin Marhefka, RN) Datetime: 05/19/2016 09:37 I/O Interventions: Up to BR (Daylin Marhefka, RN) Datetime: 05/19/2016 09:30 Monitor Mode: External (Daylin Marhefka, RN) Frequency (min): 2-4 with irritability (Daylin Marhefka, RN) Quality: Mild (Daylin Marhefka, RN) Duration (sec): 40-70 (Daylin Marhefka, RN) Resting Tone (Palpate): Relaxed (Daylin Marhefka, RN) Monitor Mode: External US (Daylin Marhefka, RN) FHR Baseline Rate : 150 (Daylin Marhefka, RN) FHR Baseline Changes: No Baseline Change (Daylin Marhefka, RN) Variability: Moderate 6-25 bpm (Daylin Marhefka, RN) Accelerations: None (Daylin Marhefka, RN) Decelerations: Late; Variable (Daylin Marhefka, RN) Datetime: 05/19/2016 09:21 Patient Care Comments: Pt encouraged to lay all the way on her right side and ecouraged not to lay on her back. (Daylin Marhefka, RN) Datetime: 05/19/2016 09:10 NBP Sys/Estrella/Mean (mmHg): 150 (QS system process) : 98 (QS system process) : 119 (QS system process) Pulse: 93 (QS system process) Respirations: 16 (Daylin Marhefka, RN) Temperature (F): 98.2 (Daylin Marhefka, RN) Temperature (C): 36.8 (QS system process) Temperature Route: Oral (Daylin Marhefka, RN) LaborFlag: Antepartum (QS system process) Datetime: 05/19/2016 09:01 Pain Scale: 3 (Daylin Marhefka, RN) Pain Presence: Intermittent (Daylin Marhefka, RN) Pain Type: Contraction (Daylin Marhefka, RN) Pain Location: Abdomen (Daylin Marhefka, RN) Pain Goal: 0 (Daylin Marhefka, RN) Pain Relief Measures: Comfort Measures (Daylin Marhefka, RN) Pain Coping: Breathing Through Contractions (Daylin Marhefka, RN) LaborFlag: Antepartum (QS system process) Datetime: 05/19/2016 09:00 Monitor Mode: External (Daylin Marhefka, RN) Frequency (min): 1.5-4 (Daylin Marhefka, RN) Quality: Mild (Daylin Marhefka, RN) Duration (sec): 50-70 (Daylin Marhefka, RN) Resting Tone (Palpate): Relaxed (Daylin Marhefka, RN) Monitor Mode: External US (Daylin Marhefka, RN) FHR Baseline Rate : 140 (Daylin Marhefka, RN) FHR Baseline Changes: No Baseline Change (Daylin Marhefka, RN) Variability: Moderate 6-25 bpm (Daylin Marhefka, RN) Accelerations: None (Daylin Marhefka, RN) Decelerations: None (Adylin Marhefka, RN) Datetime: 05/19/2016 08:55 Antibiotics: Penicillin IV (Units) @ 2.5 Million units (Daylin Marhefka, RN) Datetime: 05/19/2016 08:42 NBP Sys/Estrella/Mean (mmHg): 137 (QS system process) : 96 (QS system process) : 112 (QS system process) Pulse: 93 (QS system process) Cervical Ripening Agents: Cytotec @ (Daylin Vazquez, RN) LaborFlag: Antepartum (QS system process) Datetime: 05/19/2016 08:35 NBP Sys/Estrella/Mean (mmHg): 122 (QS system process) : 81 (QS system process) : 96 (QS system process) Pulse: 91 (QS system process) LaborFlag: Antepartum (QS system process) Datetime: 05/19/2016 08:30 Monitor Mode: External (Daylin George, RN) Frequency (min): 2-4 (Daylin Vazquez RN) Quality: Mild (Daylin Vazquez RN) Duration (sec): 40-90 (Daylin Vazquez RN) Resting Tone (Palpate): Relaxed (Daylin Vazquez RN) Monitor Interventions for FHR: Ultrasound Adjusted (Daylin Vazquez RN) Comments: RN @ bedside seaching for FHTs. (Daylin Vazquez RN) Datetime: 05/19/2016 08:11 I/O Interventions: Up to BR (Daylin Vazquez RN) Datetime: 05/19/2016 08:09 NBP Sys/Estrella/Mean (mmHg): 145 (QS system process) : 99 (QS system process) : 117 (QS system process) Pulse: 94 (QS system process) LaborFlag: Antepartum (QS system process) Datetime: 05/19/2016 08:00 Monitor Mode: External (Daylin Marhefka, RN) Frequency (min): 2-6 (Daylin Marhefka, RN) Quality: Mild (Daylin Marhefka, RN) Duration (sec): 40-60 (Daylin Marhefka, RN) Resting Tone (Palpate): Relaxed (Daylin Marhefka, RN) Monitor Mode: External US (Daylin Marhefka, RN) FHR Baseline Rate : 140 (Daylin Marhefka, RN) FHR Baseline Changes: No Baseline Change (Daylin Marhefka, RN) Variability: Moderate 6-25 bpm (Daylin Marhefka, RN) Accelerations: 10X10 (Daylin Marhefka, RN) Decelerations: None (Daylin Marhefka, RN) Datetime: 05/19/2016 07:50 Pitocin (milliunit): Pitocin Discontinued (Daylin Marhefka, RN) Datetime: 05/19/2016 07:48 Communication: RN at Bedside; Provider at Bedside (Daylin Vazquez RN) Communication Comments: Dr. Macdonald @ bedside discussing risks of continuing with vaginal delivery due to patient's vaginal mesh. Provider and MFM has recommended cesarian section. Pt stated she wants to speak with her mom before making her decision. (Daylin Vazquez RN) Datetime: 05/19/2016 07:45 Monitor Mode: External (Daylin Vazquez, RN) Frequency (min): 1-2 (Daylin Vazquez, RN) Quality: Mild (Daylin Vazquez, RN) Duration (sec): 40-60 (Daylin Vazquez, RN) Resting Tone (Palpate): Relaxed (Daylin Vazquez, RN) Monitor Mode: External US (Daylin Vazquez, RN) FHR Baseline Rate : 140 (Daylin Jackelynfka, RN) FHR Baseline Changes: No Baseline Change (Daylin Mardimafka, RN) Variability: Moderate 6-25 bpm (Daylin Marhefka, RN) Accelerations: 15X15 (Daylin Marhefka, RN) Decelerations: None (Daylin Jackelynfka, RN) Datetime: 05/19/2016 07:39 NBP Sys/Estrella/Mean (mmHg): 136 (QS system process) : 87 (QS system process) : 106 (QS system process) Pulse: 92 (QS system process) Respirations: 16 (Daylin Marhefka, RN) Temperature (F): 98.2 (Daylin Marhefka, RN) Temperature (C): 36.8 (QS system process) Temperature Route: Oral (Daylin Marhefka, RN) Pain Scale: 0 (Daylin Marhefka, RN) Pain Presence: None/Denies (Daylin Marhefka, RN) Pain Type: N/A (Daylin Marhefka, RN) Pain Goal: 0 (Daylin Marhefka, RN) Pain Relief Measures: Comfort Measures (Daylin Marhefka, RN) Pain Coping: Sleeping (Daylin Marhefka, RN) LaborFlag: Antepartum (QS system process) Datetime: 05/19/2016 07:35 Level of Consciousness: Fully Conscious (Daylin Marhefka, RN) DTR's/Clonus: DTRs 1+; No Clonus (Daylin Marhefka, RN) Headache: Denies (Daylin Marhefka, RN) Breath Sounds, Left: Clear and Equal (Daylin Marhefka, RN) Breath Sounds, Right: Clear and Equal (Daylin Marhefka, RN) Nausea/Vomiting: Denies (Daylin Marhefka, RN) RUQ Epigastric Pain: Denies (Daylin Marhefka, RN) Datetime: 05/19/2016 07:30 Monitor Mode: External (Daylin Marhefka, RN) Frequency (min): 2-3 (Daylin Marhefka, RN) Quality: Mild (Daylin Marhefka, RN) Duration (sec): 40-70 (Daylin Marhefka, RN) Resting Tone (Palpate): Relaxed (Daylin Marhefka, RN) Monitor Mode: External US (Daylin Marhefka, RN) FHR Baseline Rate : 135 (Daylin Marhefka, RN) FHR Baseline Changes: No Baseline Change (Daylin Marhefka, RN) Variability: Moderate 6-25 bpm (Daylin Marhefka, RN) Accelerations: 15X15 (Daylin Marhefka, RN) Decelerations: None (Daylin Marhefka, RN) Datetime: 05/19/2016 07:24 Patient Position/Activity: Right Lateral; Semi-Fowlers (Daylin Vazquez, MAX) Datetime: 05/19/2016 07:22 Communication Comments: Report given to Neville Vazquez RN, care relinquished at this time. (Micheline Varela RN) Datetime: 05/19/2016 07:15 Monitor Mode: External; Palpation (Daylin Vazquez RN) Frequency (min): 2-3 (Daylin Vazquez RN) Quality: Mild/Moderate (Daylin Vazquez RN) Duration (sec): 40-50 (Daylin Vazquez RN) Resting Tone (Palpate): Relaxed (Daylin Vazquez RN) Monitor Mode: External US (Daylin Vazquez RN) FHR Baseline Rate : 135 (Daylin Vazquez RN) FHR Baseline Changes: No Baseline Change (Daylin Vazquez RN) Variability: Moderate 6-25 bpm (Daylin Marhefka, RN) Accelerations: 15X15 (Daylin Vazquez, RN) Decelerations: None (Daylin Vazquez, RN) Datetime: 05/19/2016 07:09 NBP Sys/Estrella/Mean (mmHg): 137 (QS system process) : 86 (QS system process) : 106 (QS system process) Pulse: 90 (QS system process) LaborFlag: Antepartum (QS system process) Datetime: 05/19/2016 07:00 Stage of : Antepartum (Micheline Varela RN) Monitor Mode: External (Micheline Varela RN) Frequency (min): 2-3 (Micheline Varela RN) Quality: Mild (Micheline Varela RN) Duration (sec): 60-80 (Micheline Varela RN) Resting Tone (Palpate): Relaxed (Micheline Varela RN) Monitor Mode: External US (Micheline Varela RN) Monitor Interventions for FHR: Ultrasound Adjusted (Micheline Varela RN) FHR Baseline Rate : 140 (Micheline Varela RN) FHR Baseline Changes: No Baseline Change (Micheline Varela RN) Variability: Moderate 6-25 bpm (Micheline Varela RN) Accelerations: 15X15 (Micheline Varela RN) Decelerations: None (Micheline Varela RN) Comments: RN at b/s adjusting US (Micheline Varela RN) Pain Presence: Intermittent (Micheline Varela RN) Pain Type: Contraction (Micheline Varela RN) Pain Location: Abdomen (Micheline Varela RN) Pain Relief Measures: Comfort Measures (Micheline Varela RN) Pain Coping: Talking Through Contractions (Micheline Varela RN) Patient Position/Activity: Right Tilt; Semi-Fowlers (Micheline Varela RN) Comfort Measures: Breathing/Relaxation; Coaching; Family Support (Micheline Varela RN) Communication: RN at Bedside; RN Reviewed Strip (Micheline Varela RN) LaborFlag: Antepartum (QS system process)
[2016-05-19] MEDS: IBUPROFEN 800 MG TABLET PO SCH (21:13)
--- NOTE | 2016-05-20 06:01 | L&D Current Admission ---
Current Admit Datetime Report Generated by CPN: 05/20/2016 06:00 ADMISSION INFORMATION Reason for Admission: Rupture of Membranes (05/19/2016 00:20:Micheline Varela RN) Chief Complaint: Contractions (05/12/2016 21:34:Areli Benavides RN) Method of Arrival: Wheelchair (05/19/2016 00:20:Micheline Varela RN) Admitted From: Home (05/19/2016 00:20:Micheline Varela RN) Records Available: Yes (05/19/2016 00:20:Micheline Varela RN) General Admission Information: Reviewed (05/19/2016 00:20:Micheline Varela RN) BELONGINGS/ADVANCED DIRECTIVES Valuables/Personal Effects: Purse/Wallet; Cell Phone (05/19/2016 00:20:Micheline Varela RN) Disposition of Belongings: Kept with Patient (05/19/2016 00:20:Micheline Varela RN) Advance Direct for Healthcare: No, and Wants No Information (05/19/2016 00:20:Micheline Varela RN) Durable Power of Inventory Control Specialist: No (05/19/2016 00:20:Micheline Varela RN) Living Will: No (05/19/2016 00:20:Micheline Varela RN) Organ Donor: No (05/19/2016 00:20:Micheline Varela RN) Pt Rights Information Given: Yes (05/19/2016 00:20:Micheline Varela RN) Pt Understands Pt Rights: Yes (05/19/2016 00:20:Micheline Varela RN) LEARNING ASSESSMENT Knowledge Level: Understands L_D Process; Understands Care Activities; Had Pre-Hospital Education; Understands Diagnosis (05/19/2016 00:20:Micheline Varela RN) Barriers to Learning: None (05/19/2016 00:20:Micheline Varela RN) DOMESTIC VIOLANCE SCREENING Dom Viol Threatened/Hurt: No (05/19/2016 00:20:Micheline Varela RN) Hx of Abuse/Neglect past 2yrs: No (05/19/2016 00:20:Micheline Varela RN) Feel Unsafe Going Home: No (05/19/2016 00:20:Micheline Varela RN) Addt'l Observ Indicating Abuse: No (05/19/2016 00:20:Micheline Varela RN) Reason Unable to Complete Screen: N/A, Screen Completed (05/19/2016 00:20:Micheline Varela RN) Considered Personal Harm/Suicide: No (05/19/2016 00:20:Micheline Varela RN) NUTRITIONAL/FUNCTIONAL SCREENING Problem with Appetite >5 Days: No (05/19/2016 00:20:Micheline Varela RN) Chew/Swallow Difficulties: No (05/19/2016 00:20:Micheline Varela RN) Inappropriate Wt Gain/Loss: No (05/19/2016 00:20:Micheline Varela RN) Presence Skin Breakdown/Ulcer: No (05/19/2016 00:20:Micheline Varela RN) Special Diet: Radha (05/19/2016 00:20:Micheline Varela RN) Pt Requests Shearing Machine Operator Visit: Radha (05/19/2016 00:20:Micheline Varela RN) Hx of Any of the Following?: N/A (05/19/2016 00:20:Micheline Varela RN) New Diagnosis of: N/A (05/19/2016 00:20:Micheline Varela RN) Requires Assist w/Ambulation: Radha (05/19/2016 00:20:Micheline Varela RN) Uses Assist Device to Ambulate: Radha (05/19/2016 00:20:Micheline Varela RN) Pt Requires Help w/ADL's: Radha (05/19/2016 00:20:Micheline Varela RN)
--- NOTE | 2016-05-20 06:01 | L&D General Admission ---
General Admit Datetime Report Generated by CPN: 05/20/2016 06:00 INFORMATION Patient Age: 40 (02/27/2016 11:10:QS system process) EDC: 06/12/2016 00:00 (02/27/2016 11:14:Rajni Henry RN) : 10 (02/27/2016 11:14:Rajni Henry RN) Para: 4 (05/12/2016 22:49:Areli Benavides RN) Term: 4 (02/27/2016 11:14:Rajni Henry RN) : 0 (02/27/2016 11:14:Rajni Henry RN) Spontaneous Abortions: 0 (02/27/2016 11:14:Rajni Henry RN) Induced Abortions: 5 (02/27/2016 11:14:Rajni Henry RN) Livin (02/27/2016 11:14:Rajni Henry RN) Cesareans: 0 (02/27/2016 11:14:Rajni Henry RN) VBACs: 0 (02/27/2016 11:14:Rajni Henry RN) Ectopic: 0 (02/27/2016 11:14:Rajni Henry RN) Multiple Births: 0 (02/27/2016 11:14:Rajni Henry RN) Baby, Number in Womb: 0 (05/12/2016 22:49:Areli Benavides RN) CARE Primary Fish Grader: [facility] (02/27/2016 11:14:Rajni Henry RN) Month of 1st Visit: October 2015 (02/27/2016 11:14:Micheline Varela RN) Adequate Care: Yes (02/27/2016 11:14:Micheline Varela RN) Height (in): 65 (04/25/2016 10:56:QS system process) ALLERGIES Medication Allergy: No (02/27/2016 11:14:Rajni Henry RN) Medication Allergies: No Known Allergies (05/19/2016) (05/19/2016 01:25:QS system process) Latex Allergy: No Latex Allergies (02/27/2016 11:14:Rajni Henry RN) Food Allergies: NONE (02/27/2016 11:14:Sagrario Garcia RN) Environmental Allergies: NONE (02/27/2016 11:14:Sagrario Garcia RN) COMMUNICATION Primary Language: Romanian (02/27/2016 11:14:Rajni Henry RN) Medical Tx Preferred Language: Romanian (02/27/2016 11:14:Rajni Henry RN) Communication Barrier(s): None (02/27/2016 11:14:Sagrario Garcia RN) DEMOGRAPHICS Address: [address] [place] [id number] (02/27/2016 11:10:QS system process) Zipcode: [phone] (02/27/2016 11:10:QS system process) Home (02/27/2016 11:10:QS system process) Work (04/25/2016 10:33:QS system process) N: [phone] (02/27/2016 11:10:QS system process) Next of Kin Name: EDITH HUMPHRIES (02/27/2016 11:10:QS system process) Next of Kin (04/25/2016 10:33:QS system process) Next of Kin Relationship: MO (02/27/2016 11:10:QS system process) Date of : 1975 (02/27/2016 11:10:QS system process) Marital Status: (04/25/2016 10:33:QS system process) Sex: Female (02/27/2016 11:10:QS system process) Race: (02/27/2016 11:10:QS system process) Ethnicity: Non- or (02/27/2016 11:10:QS system process) Caodaism: Sikh (02/27/2016 11:10:QS system process) FOB Involved: No (02/27/2016 11:14:Micheline Varela RN) DRUG AND ALCOHOL USE Alcohol: No (02/27/2016 11:14:Micheline Varela RN) Cigarettes: Never Smoker. [id number] (02/27/2016 11:14:Micheline Varela RN) Marijuana: No (02/27/2016 11:14:Micheline Varela RN) Cocaine: No (02/27/2016 11:14:Micheline Varela RN) Other Illicit Drugs: No (02/27/2016 11:14:Micheline Varela RN) VACCINE HISTORY Influenza Vaccine: No (02/27/2016 11:14:Micheline Varela RN) Pneumococcal Vaccine: No (02/27/2016 11:14:Micheline Varela RN) Tetanus Vaccine: No (02/27/2016 11:14:Micheline Varela RN) Tdap Vaccine: Yes (02/27/2016 11:14:Micheline Varela RN) Tdap Date: 03/28/16 (02/27/2016 11:14:Micheline Varela RN) Hepatitis B Vaccine: No (02/27/2016 11:14:Micheline Varela RN) Other Vaccine: RhoGam 03/25/16 (Annotations: Data stored by [facility] on behalf of user) (02/27/2016 11:14:Micheline Varela RN) Auto Parts Clerk: [facility] (02/27/2016 11:14:Micheline Varela RN) Feeding Preference: Breast (02/27/2016 11:14:Micheline Varela RN) Benefit of Breast Feed Discussed: Yes (02/27/2016 11:14:Micheline Varela RN) Circumcision: N/A (02/27/2016 11:14:Micheline Varela RN) Classes Attended: No (02/27/2016 11:14:Micheline Varela RN) Tubal Ligation: No (02/27/2016 11:14:Micheline Varela RN) Tubal Authorization Signed: N/A (02/27/2016 11:14:Micheline Varela RN) Consent: N/A (02/27/2016 11:14:Micheline Varela RN) Consent Signed: N/A (02/27/2016 11:14:Micheline Varela RN) Pain Management Plans: None (02/27/2016 11:14:Micheline Varela RN) Plans for Labor and Delivery: None (02/27/2016 11:14:Micheline Varela RN) Support Person: Edith (02/27/2016 11:14:Micheline Varela RN) Support Person Relationship: Mother (02/27/2016 11:14:Micheline Varela RN) Cultural/Spritual Practice: No (02/27/2016 11:14:Micheline Varela RN) Spir/Cult Dietary Needs: No (02/27/2016 11:14:Micheline Varela RN) LIVING SITUATION/DISCHARGE PLAN Living Arrangements: House (02/27/2016 11:14:Micheline Varela RN) Adequate Access to:: Electric; Heat; Refrigeration; Plumbing/Running water; Phone; Transportation (02/27/2016 11:14:Micheline Varela RN) WIC Program: Yes (02/27/2016 11:14:Micheline Varela RN) Specify Current Resource Used: Medicaid (02/27/2016 11:14:Micheline Varela RN) Car Seat for Discharge: No (02/27/2016 11:14:Micheline Varela RN) Adoption Requested: No (02/27/2016 11:14:Micheline Varela RN) LABS Blood Type: B Negative (02/27/2016 11:14:Megha Baird RN) Antibody Screen: negative (02/27/2016 11:14:Megha Baird RN) Hemoglobin: 10.3 L (05/19/2016 00:22:QS system process) Hematocrit: 31.2 L (05/19/2016 00:22:QS system process) MCV: 77 L (05/19/2016 00:22:QS system process) Group Beta Strep: Unknown (02/27/2016 11:14:Daylin Vazquez RN) Gonorrhea: Negative (02/27/2016 11:14:Daylin Vazquez RN) Chlamydia: Negative (02/27/2016 11:14:Daylin Vazquez RN) RPR/VDRL: Nonreactive (02/27/2016 11:14:Megha Baird RN) HIV Results: non-reactive (02/27/2016 11:14:Megha Baird RN) Hepatitis B: Negative (02/27/2016 11:14:Megha Baird RN) Rubella: Immune (Annotations: Data stored by N on behalf of user) (02/27/2016 11:14:Megha Baird RN) OB/PREVIOUS HISTORY Current Procedures: Ultrasound (02/27/2016 11:14:Rajni Henry RN) History of Previous : No (02/27/2016 11:14:Rajni Henry RN) History of Gestational Diabetes: No (02/27/2016 11:14:Rajni Henry RN) History of PIH: No (02/27/2016 11:14:Rajni Henry RN) History of Incompetent Cervix: No (02/27/2016 11:14:Rajni Henry RN) History of Placenta Previa/Abrup: No (02/27/2016 11:14:Rajni Henry RN) History of Macrosomia: No (02/27/2016 11:14:Rajni Henry RN) History of IUGR: No (02/27/2016 11:14:Rajni Henry RN) History of Hemorrhage: No (02/27/2016 11:14:Rajni Henry RN) History of Loss/Stillborn: No (02/27/2016 11:14:Rajni Henry RN) History of : No (02/27/2016 11:14:Rajni Henry RN) History of D (Rh) Sensitization: No (02/27/2016 11:14:Rajni Henry RN) History Recurrent Loss/Stillborn: No (02/27/2016 11:14:Rajni Henry RN) History Depression/PP Depression: Yes (02/27/2016 11:14:Rajni Henry RN) History of Uterine Anomaly/BETINA: No (02/27/2016 11:14:Rajni Henry RN) History of Infertility: No (02/27/2016 11:14:Rajni Henry RN) History of ART Treatment: No (02/27/2016 11:14:Rajni Henry RN) History of BETINA: No (02/27/2016 11:14:Rajni Henry RN) MEDICAL HISTORY Med Hx Diabetes: No (02/27/2016 11:14:Rajni Henry RN) Diabetes Type: Gestational Diabetes (02/27/2016 11:14:Micheline Varela RN) Med Hx Hypertension: Yes (02/27/2016 11:14:Rajni Henry RN) Med Hx Heart Disease: No (02/27/2016 11:14:Rajni Henry RN) Med Hx Autoimmune Disorder: No (02/27/2016 11:14:Rajni Henry RN) Med Hx Kidney Disease/UTI: No (02/27/2016 11:14:Rajni Henry RN) Med Hx Neurologic/Epilepsy: No (02/27/2016 11:14:Ranji Henry RN) Med Hx Psychiatric Disorders: No (02/27/2016 11:14:Rajni Henry RN) Med Hx Hepatitis/Liver Disease: No (02/27/2016 11:14:Rajni Henry RN) Med Hx Varicosities/Phlebitis: No (02/27/2016 11:14:Rajni Henry RN) Med Hx Thyroid Dysfunction: No (02/27/2016 11:14:Rajni Henry RN) Med Hx Trauma/Violence: No (02/27/2016 11:14:Rajni Henry RN) Med Hx Blood Transfusion: No (02/27/2016 11:14:Rajni Henry RN) Med Hx Pulmonary (Asthma,TB): No (02/27/2016 11:14:Rajni Henry RN) Med Hx Breast: No (02/27/2016 11:14:Rajni Henry RN) Med Hx SPINDLE SANDER Surgery: No (02/27/2016 11:14:Rajni Henry RN) Med Hx Hospitalization/Surgery: Yes (02/27/2016 11:14:Rajni Henry RN) Med Hx Anesthetic Complications: No (02/27/2016 11:14:Rajni Henry RN) Med Hx Abnormal Pap Smear: No (02/27/2016 11:14:Rajni Henry RN) Other Medical Diseases: No (02/27/2016 11:14:Rajni Henry RN) Med Hx Significant Family Hx: No (02/27/2016 11:14:Rajni Henry RN) Details of Med/Surg Hx: HTN- prior to , depression periodically, vaginal mesh implant 2008, hospitalized with childbirth, gallbladder removal 2013 (02/27/2016 11:14:Rajni Henry RN) INFECTIOUS HISTORY Inf Hx Gonorrhea: Yes (02/27/2016 11:14:Rajni Henry RN) Inf Hx Chlamydia: No (02/27/2016 11:14:Rajni Henry RN) Inf Hx Syphilis: No (02/27/2016 11:14:Rajni Henry RN) Inf Hx HIV/AIDS: No (02/27/2016 11:14:Rajni Henry RN) Inf Hx Human Papilloma Virus: No (02/27/2016 11:14:Rajni Henry RN) Inf Hx Pt/Partner Genital Herpes: No (02/27/2016 11:14:Rajni Henry RN) Inf Hx Tuberculosis/Exposure: No (02/27/2016 11:14:Rajni Henry RN) Inf Hx Hepatitis B,C: No (02/27/2016 11:14:Rajni Henry RN) Inf Hx Rash or Viral Illness: No (02/27/2016 11:14:Rajni Henry RN) Details of Infectious Hx: 2014- ` (02/27/2016 11:14:Clarissa Conrad RN) GENETIC HISTORY Gen Hx Age >=35 at SAJI: No (02/27/2016 11:14:Rajni Henry RN) Gen Hx Thalassemia: No (02/27/2016 11:14:Rajni Henry RN) Gen Hx Congenital Heart Defect: No (02/27/2016 11:14:Rajni Henry RN) Gen Hx Neural Tube Defect: No (02/27/2016 11:14:Rajni Henry RN) Gen Hx Down's Syndrome: Yes (02/27/2016 11:14:Rajni Henry RN) Gen Hx Rafat-Sachs: No (02/27/2016 11:14:Rajni Henry RN) Gen Hx Meena: No (02/27/2016 11:14:Rajni Henry RN) Gen Hx Familial Dysautonomia: No (02/27/2016 11:14:Rajni Henry RN) Gen Hx Sickle Cell Disease/Trait: No (02/27/2016 11:14:Rajni Henry RN) Gen Hx Hemophilia/Blood Disorder: No (02/27/2016 11:14:Rajni Henry RN) Gen Hx Muscular Dystrophy: No (02/27/2016 11:14:Rajni Henry RN) Gen Hx Cystic Fibrosis: No (02/27/2016 11:14:Rajni Henry RN) Gen Hx Huntingtons Chorea: No (02/27/2016 11:14:Rajni Henry RN) Gen Hx Mental Retardation/Autism: No (02/27/2016 11:14:Rajni Henry RN) Gen Hx Tested for Fragile X: No (02/27/2016 11:14:Rajni Henry RN) Gen Hx Other Inher/Chromosomal: No (02/27/2016 11:14:Rajni Henry RN) Gen Hx Maternal Metabolic DO: No (02/27/2016 11:14:Rajni Henyr RN) Gen Hx Pt Father or FOB Defect: No (02/27/2016 11:14:Rajni Henry RN) Gen Hx Other Genetic History: No (02/27/2016 11:14:Rajni Henry RN) Gen Hx Drugs/Meds since LMP: No (02/27/2016 11:14:Rajni Henry RN) Details of Genetic History: pt sister (02/27/2016 11:14:Rajni Henry RN)
[2016-05-20] MEDS: IBUPROFEN 800 MG TABLET PO SCH ×3 (06:27→21:42)
[2016-05-20 08:05] LABS: HEMATOCRIT 31.9 % (36.0-47.0); HEMOGLOBIN 10.3 g/dL (12.0-15.5); MEAN CORPUSCULAR HEMOGLOBIN 24.7 pg (27.0-33.4); MEAN CORPUSCULAR HGB CONC 32.2 g/dL (32.0-36.0); MEAN CORPUSCULAR VOLUME 77 fl (80-97); RED BLOOD COUNT 4.17 10^6/uL (3.72-5.28); RED CELL DISTRIBUTION WIDTH 14.8 % (11.5-14.0); WHITE BLOOD COUNT 13.7 10^3/uL (4.0-10.5)
[2016-05-20] MEDS: PRENATAL VITAMIN W-O CA NO5/FE FUMARATE/FA CAPSULE PO SCH (09:03)
[2016-05-20] MEDS: SENNOSIDES/DOCUSATE 8.6-50 MG 1 EACH TABLET PO SCH (09:04)
[2016-05-20] MEDS: DOCUSATE SODIUM 100 MG CAPSULE PO SCH ×2 (09:04→17:36)
[2016-05-20] MEDS: FERROUS SULFATE 325 MG TABLET PO SCH ×2 (09:04→17:36)
--- NOTE | 2016-05-20 10:40 | PDOC PROGRESS REPORT ---
Subjective-OB Subjective: Post Delivery Day: 1 40 year old. Denies any needs at this time, lochia is stable, pain is well controlled, voiding without difficulty. Physical Exam (OB) Vital Signs: Temp Pulse Resp BP Pulse Ox 97.9 F 87 18 119/72 100 05/20/16 08:35 05/20/16 08:35 05/20/16 08:35 05/20/16 08:35 05/20/16 08:35 Intake & Output 05/19/16 05/20/16 05/21/16 06:59 06:59 06:59 Intake Total 480 Balance 480 Weight 109.55 kg - PIH/Pre-Eclampsia DTR's: 1 + Clonus: Negative Headache: Absent Epigastric Pain: No Visual Changes: No - Lochia Lochia Amount: Scant < 10 ml Lochia Color: Rubra/Red - Abdomen Description: Soft, Round Hernia Present: No Fundal Description: Firm, Midline Fundal Height: u/u - u/2 Objective-Diagnostic Laboratory: 05/20/16 07:44 05/20/16 07:44 WBC 13.7 H RBC 4.17 Hgb 10.3 L Hct 31.9 L MCV 77 L MCH 24.7 L MCHC 32.2 RDW 14.8 H Plt Count 181 Assessment and Plan(PN) Plan:: routine pp care anticipate d/c home tomorrow - Time Spent with Patient Time with patient: Less than 15 minutes Critical Time spent with patient: Less than 15 minutes Medications reviewed and adjusted accordingly: Yes - Disposition Anticipated Discharge: Home Within: within 24 hours
[2016-05-21] MEDS: IBUPROFEN 800 MG TABLET PO SCH (05:55)
--- NOTE | 2016-05-21 09:02 | PDOC DISCHARGE SUMMARY ---
Final Diagnosis Discharge Date: 05/21/16 - Final Diagnosis (1) Shoulder dystocia during labor and delivery Is this a current diagnosis for this admission?: Yes (2) Polyhydramnios Is this a current diagnosis for this admission?: Yes (3) Vaginal delivery Is this a current diagnosis for this admission?: Yes Discharge Data - Discharge Medication Home Medications: Docusate Sodium [Colace 100 mg Capsule] 100 mg PO BID #60 capsule 05/21/16 Ferrous Sulfate [Feosol 325 mg Tablet] 325 mg PO BID #60 tablet 05/21/16 Ibuprofen [Motrin 800 mg Tablet] 800 mg PO Q8 #60 tablet 05/21/16 Gestational Age: 36.4 Reason(s) for Admission: Onset of Labor - gbs unknown, Gestional Diabetes Procedures: NST Intrapartum Procedure(s): Spontaneous Vaginal Delivery Complication(s): Other - shoulder dystocia - [place] Data Baby 1 Female at 1 minute: 8 at 5 minutes: 9 Weight: 3480 kg Home with Mother: Yes Complications: Yes - shoulder dystocia - Diagnosis Test Laboratory: Temp Pulse Resp BP Pulse Ox 98.0 F 96 18 128/88 H 99 05/21/16 08:50 05/21/16 08:50 05/21/16 08:50 05/21/16 08:50 05/21/16 08:50 05/19/16 05/19/16 05/20/16 00:22 01:10 07:44 RBC 4.08 4.17 Hgb 10.3 L 10.3 L Hct 31.2 L 31.9 L Urine Opiates Screen NEGATIVE - Discharge information/Instructions Discharge Activity: Balance Activity w/Rest, Pelvic Rest, Slowly Increase Activity, No tub bath Discharge Diet: Regular Disposition: HOME, SELF-CARE Follow up with: [facility] in: 1, Weeks
[2016-05-21] MEDS: FERROUS SULFATE 325 MG TABLET PO SCH (09:35)
[2016-05-21] MEDS: PRENATAL VITAMIN W-O CA NO5/FE FUMARATE/FA CAPSULE PO SCH (09:35)
[2016-05-21] MEDS: SENNOSIDES/DOCUSATE 8.6-50 MG 1 EACH TABLET PO SCH (09:35)
[2016-05-21] MEDS: DOCUSATE SODIUM 100 MG CAPSULE PO SCH (09:35)
[2016-05-21 10:37] VITALS: BP 128/88
== END 2016-05-21 10:45 | disposition home or self-care (01) | DRG 775 ==
LOC: LC 23:59 → LR 05-19 00:17 → 2S 05-19 15:04
PROVIDERS: ADMIT Obstetrics & Gynecology; ATTEND Obstetrics & Gynecology
PROC: 10E0XZZ Delivery of Products of Conception, External Approach (ICD-10-PCS; principal; 2016-05-19)
DX: O60.14X0 Preterm labor third trimester with preterm delivery third trimester, not applicable or unspecified (principal); O36.0930 Maternal care for other rhesus isoimmunization, third trimester, not applicable or unspecified; O66.0 Obstructed labor due to shoulder dystocia; O24.429 Gestational diabetes mellitus in childbirth, unspecified control; O16.4 Unspecified maternal hypertension, complicating childbirth; O40.3XX0 Polyhydramnios, third trimester, not applicable or unspecified; O62.3 Precipitate labor; O26.23 Pregnancy care for patient with recurrent pregnancy loss, third trimester; O09.523 Supervision of elderly multigravida, third trimester; Z3A.36 36 weeks gestation of pregnancy; Z37.0 Single live birth
CPT/HCPCS: 36415; 80307; 81001; 82962; 85025; 85027; 86592; 86850; 86870; 86900; 86901; 88307; J2300; J2540; J2550; J2590; J3490; J7120

== ENCOUNTER → 2018-06-07 | Outpatient (CLI) | payer BC ==
[2018-06-07 16:35] LABS: ABSOLUTE EOSINOPHILS # (AUTO) 0.3 10^3/uL (0.0-0.6); ABSOLUTE LYMPHOCYTES (AUTO) 2.7 10^3/uL (0.5-4.7); ABSOLUTE MONOCYTES (AUTO) 0.6 10^3/uL (0.1-1.4); ABSOLUTE NEUT (AUTO) 3.1 10^3/uL (1.7-8.2); BASOPHILS % (AUTO) 0.7 % (0-2); EOSINOPHILS % (AUTO) 4.5 % (0-6); HEMATOCRIT 40.5 % (36.0-47.0); HEMOGLOBIN 13.7 g/dL (12.0-15.5); LYMPHOCYTES % (AUTO) 39.8 % (13-45); MEAN CORPUSCULAR HEMOGLOBIN 27.7 pg (27.0-33.4); MEAN CORPUSCULAR HGB CONC 33.7 g/dL (32.0-36.0); MEAN CORPUSCULAR VOLUME 82 fl (80-97); PLATELET COUNT 283 10^3/uL (150-450); RED BLOOD COUNT 4.93 10^6/uL (3.72-5.28); RED CELL DISTRIBUTION WIDTH 14.9 % (11.5-14.0); TOTAL CELLS COUNTED % (AUTO) 100 %; WHITE BLOOD COUNT 6.8 10^3/uL (4.0-10.5)
[2018-06-07 16:44] LABS: INTERNATIONAL RATION (INR) 0.99; PROTHROMBIN TIME 13.6 SEC (11.4-15.4)
[2018-06-07 16:45] LABS: PARTIAL THROMBOPLASTIN TIME 31.9 SEC (23.5-35.8)
[2018-06-07 16:55] LABS: ALANINE AMINOTRANSFERASE 18 U/L (9-52); ALBUMIN 4.6 g/dL (3.5-5.0); ALKALINE PHOSPHATASE 87 U/L (38-126); ANION GAP 13 (5-19); ASPARTATE AMINO TRANSFERASE 36 U/L (14-36); BILIRUBIN,DIRECT 0.1 mg/dL (0.0-0.4); BILIRUBIN,TOTAL 0.7 mg/dL (0.2-1.3); BLOOD UREA NITROGEN 13 mg/dL (7-20); CALCIUM 9.8 mg/dL (8.4-10.2); CARBON DIOXIDE 28 mmol/L (22-30); CHLORIDE 98 mmol/L (98-107); GLUCOSE 99 mg/dL (75-110); POTASSIUM 4.1 mmol/L (3.6-5.0); SODIUM 139.2 mmol/L (137-145)
--- NOTE | 2018-06-07 17:51 | EKG REPORT ---
SEVERITY:- NORMAL ECG - SINUS RHYTHM : Confirmed by: Damon Fox MD 07-Jun-2018 17:51:13
== END ==
LOC: OD 15:20
PROVIDERS: ATTEND Plastic Surgery
DX: Z01.812 Encounter for preprocedural laboratory examination (principal)
CPT/HCPCS: 36415; 80053; 84703; 85025; 85610; 85730; 93005; 93010

== ENCOUNTER 2018-07-16 13:47 | Emergency (ER) | payer BC ==
--- NOTE | 2018-07-16 14:47 | ER Document Report ---
ED Medical Screen (RME) - General Chief Complaint: Post Surgical Pain Stated Complaint: REMOVAL OF DRAINS/POST SURGERY Time Seen by Provider: 07/16/18 14:45 Primary Care Provider: MONISHA MONSIVAIS [Primary Care Provider] - Follow up as needed Mode of Arrival: Ambulatory Information source: Patient Notes: Patient is a 42-year-old female who presents to the emergency department requesting to have her OUMOU drains removed from her abdomen. There are [address], they were placed on 07/02/18 during an abdominoplasty that she had done in [place]. Patient reports that her surgeon told her it is time to get them taken out. Patient reports that she lives in this area. Patient denies any symptoms. Reports mild drainage at the site. I have greeted and performed a rapid initial assessment of this patient. A comprehensive ED assessment and evaluation of the patient, analysis of test results and completion of the medical decision making process will be conducted by additional ED providers. Dictation of this chart was performed using voice recognition software; therefore, there may be some unintended grammatical errors. TRAVEL OUTSIDE OF THE [place] IN LAST 30 DAYS: No - Related Data Allergies/Adverse Reactions: No Known Allergies Allergy (Verified 07/16/18 13:52) Past Medical History - Past Medical History Cardiac Medical History: Reports: Hx Hypercholesterolemia, Hx Hypertension GI Medical History: Musculoskeltal Medical History: Denies Hx Arthritis Infectious Medical History: Past Surgical History: Reports: Hx Cholecystectomy, Hx Tonsillectomy - Immunizations Hx Diphtheria, Pertussis, Tetanus Vaccination: Yes Physical Exam - Vital signs Vitals: Temp Pulse Resp BP Pulse Ox 97.6 F 125 H 17 117/71 97 07/16/18 14:03 07/16/18 14:03 07/16/18 14:03 07/16/18 14:03 07/16/18 14:03 Course - Vital Signs Vital signs: Temp Pulse Resp BP Pulse Ox 97.6 F 125 H 17 117/71 97 07/16/18 14:03 07/16/18 14:03 07/16/18 14:03 07/16/18 14:03 07/16/18 14:03 Doctor's Discharge - Discharge Referrals: MONISHA MONSIVAIS [Primary Care Provider] - Follow up as needed
--- NOTE | 2018-07-16 17:06 | ER Document Report ---
ED General - General Chief Complaint: Post Surgical Pain Stated Complaint: REMOVAL OF DRAINS/POST SURGERY Time Seen by Provider: 07/16/18 14:45 Primary Care Provider: JEFF GUTIERREZ [ARC AIR OPERATOR] - Follow up in 3-5 days MONISHA MONSIVAIS [Primary Care Provider] - Follow up as needed Mode of Arrival: Ambulatory Notes: 42-year-old female who presents to the emergency department requesting to have two OUMOU drains removed from her abdomen. They were placed on 07/02/18 during an abdominoplasty that she had done in [place]. There was supposed to be removed 1 week ago but 1 week into the postsurgical course there was excessive drainage coming from them so her surgeon told her to keep them in an additional week. Patient reports that her surgeon told her it is time to get them taken out. Patient reports that she lives in this area. Patient denies any symptoms. Reports mild drainage at the site. She denies fevers, chills, any infectious symptoms. She denies any purulent discharge from the site. She denies any dehiscence of her wounds. TRAVEL OUTSIDE OF THE [place] IN LAST 30 DAYS: No - Related Data Allergies/Adverse Reactions: No Known Allergies Allergy (Verified 07/16/18 13:52) Past Medical History - General Information source: Patient - Social History Smoking Status: Never Smoker Chew tobacco use (# tins/day): No Frequency of alcohol use: None Drug Abuse: None Family History: Reviewed & Not Pertinent Patient has suicidal ideation: No Patient has homicidal ideation: No - Past Medical History Cardiac Medical History: Reports: Hx Hypercholesterolemia, Hx Hypertension Renal/ Medical History: Denies: Hx Peritoneal Dialysis GI Medical History: Musculoskeletal Medical History: Denies Hx Arthritis Infectious Medical History: Past Surgical History: Reports: Hx Abdominal Surgery - tummy tuck, Hx Breast Surgery - augmentation, Hx Cholecystectomy, Hx Tonsillectomy - Immunizations Hx Diphtheria, Pertussis, Tetanus Vaccination: Yes Review of Systems - Review of Systems Constitutional: See HPI EENT: No symptoms reported Cardiovascular: See HPI Respiratory: See HPI Gastrointestinal: See HPI Genitourinary: No symptoms reported Female Genitourinary: No symptoms reported Musculoskeletal: No symptoms reported Skin: No symptoms reported Hematologic/Lymphatic: No symptoms reported Neurological/Psychological: No symptoms reported Physical Exam - Vital signs Vitals: Temp Pulse Resp BP Pulse Ox 97.6 F 125 H 17 117/71 97 07/16/18 14:03 07/16/18 14:03 07/16/18 14:03 07/16/18 14:03 07/16/18 14:03 - Notes Notes: PHYSICAL EXAMINATION: Reviewed vital signs and charting by RN GENERAL: Alert, interacts well. No acute distress. HEAD: Normocephalic, atraumatic. EYES: Pupils equal and round. Extraocular movements intact. ENT: Oral mucosa moist, tongue midline. NECK: Full range of motion. Supple. Trachea midline. LUNGS: Clear to auscultation bilaterally, no wheezes, rales, or rhonchi. No respiratory distress. HEART: Regular rate and rhythm. No murmur ABDOMEN: soft, non-tender. Non-distended. Bowel sounds present. no McBurney's point tenderness, no [place] sign. EXTREMITIES: Moves all 4 extremities spontaneously. No edema, No cyanosis. Normal distal neurovascular exam BACK: No CVAT NEUROLOGIC: Oriented and appropriate. Normal speech. PSYCH: Normal affect, normal mood. SKIN: Warm, dry, normal turgor. 2 OUMOU drains bilateral at the level of ASIS clean, no erythema, no purulent discharge. There is a healing surgical incision across her entire lower abdomen and across her distal breasts. Mild erythema around the umbilicus. Course - Re-evaluation Re-evalutation: 07/16/18 23:15 Surgical incisions are clean with no erythema or purulent discharge. Mild erythema around the umbilicus. I attempted to move the left OMUOU drain and met resistance. I called Dr. Zuniga, surgeon on-call who agreed to come and assess the patient. He successfully removed both OUMOU drains after agreement that they were safe to remove at this time. Patient tolerated the removal well. Plan is to have her follow-up in the wound clinic. - Vital Signs Vital signs: Temp Pulse Resp BP Pulse Ox 98.2 F 78 18 110/70 100 07/16/18 18:35 07/16/18 18:35 07/16/18 18:35 07/16/18 18:35 07/16/18 18:35 Discharge - Discharge Clinical Impression: Encounter for change or removal of drains Condition: Good Disposition: HOME, SELF-CARE Additional Instructions: You were seen in the emergency department this afternoon for removal of your OUMOU drains. The procedure went well. It is very important to follow-up in the wound clinic to keep an eye on the healing of your wounds. Pay close attention to the area around your bellybutton as it is slightly red. If it starts to get red or or becomes hot it is important to return for reevaluation is at the sign of infection. Also, it is possible that you might get a little fluid accumulation in the area where the drains were. Be cognizant of that. Please use Neosporin 3 times a day over the areas where the drains were placed and keep them covered with gauze. You can expect them to close in the next several days on their own. If you notice any redness or purulent discharge along any of your incision sites please return for reevaluation as this is sign of infection and you may need antibiotics. Please follow-up with the wound clinic in the next 3- 5 days. Lastly, apply Neosporin to that area at the bottom of your right breast that you were concerned about 3 times a day and covered with 4 x 4's. This is a normal reaction but we need to watch it close that it does not become infected. If you develop fever, chills, any redness as discussed please return to the emergency department. Referrals: LOI,NO [Primary Care Provider] - Follow up as needed JEFF GUTIERREZ [ARC AIR OPERATOR] - Follow up in 3-5 days
[2018-07-16 18:36] VITALS: BP 110/70
--- NOTE | 2018-07-16 19:59 | CONSULTATION REPORT E ---
Consultation Report NAME: ANGELIA PARIKH : 1975 AGE: 42Y DATE: 07/16/2018 TO: CHRIS MAYS M.D. FROM: Clark TAMEZ, Requesting Physician The patient is seen at the request of Alonso Ingram. CHIEF COMPLAINT: Postoperative wounds and drain management. The patient is a 42-year-old -[place] female who is 2 weeks status post reduction mammoplasty and panniculectomy with drain placement at the abdominal incision site, performed by a plastic surgeon. The patient was sent home with instructions to follow up in the emergency room for drain removal at the 2 week point. The patient states she has been doing well, does not smoke, denies fever and has had less than 10 mL per abdominal wall drain since the last 5 days. The patient was evaluated in the emergency department, and felt to require surgical input. An attempt was made to remove one of these drains, but was unsuccessful. PAST MEDICAL/SURGICAL HISTORY: Significant for multiple deliveries; laparoscopic cholecystectomy. No past medical history. ALLERGIES: None. MEDICATIONS: None. REVIEW OF SYSTEMS: CONSTITUTIONAL: Denies. CARDIOVASCULAR: Denies. MUSCULOSKELETAL: The patient has had limited range of motion of the back and lower extremities due to recent surgery. PHYSICAL EXAMINATION: GENERAL: The patient is in the emergency department. The patient is awake, alert and oriented x4. VITAL SIGNS: Heart rate 100 on admission, down to 80. Other vital signs stable. HEENT: Eyes without icterus. NECK: No adenopathy. CHEST: Chest wall examined. Status post bilateral reduction mammoplasty with inverted T configuration; all Steri-Strips are left. Reconstructed breasts dry and intact. At the confluence of the skin flaps on the right side, there is some drainage. The majority of the Steri-Strips on the right breast were removed. There is a limited area of epidermolysis on the right lateral and left lateral skin flaps. No foul smell or pus. There is mild erythema around the umbilicus. The panniculectomy dressing including Steri-Strips removed. Both Jerry-Rocha drains examined. Serous material in both. Appear to be functional satisfactorily. Both drains removed uneventfully with complete removal of Ethibond securing sutures. The skin has been closed with Monocryl suture. Steri-Strips left off. 4 x 4s and tape applied to drain sites. Remaining examination is unremarkable. IMPRESSION: A 42-year-old -[place] female now 2 weeks status post abdominoplasty and panniculectomy in a remote state, now here for postoperative care; no evidence of significant wound complication; drains removed uneventfully; focal areas of epidermolysis and suboptimal wound healing as described above. RECOMMENDATIONS: 1. Suggested she allow the remaining Steri-Strips to fall off on their own. 2. She should undergo reevaluation of the small localized areas of epidermolysis on the right breast, and erythema around the umbilicus as well as the panniculectomy wound sites within the week; we have given our contact information to make an appointment with [facility]. The patient expresses her understanding and agrees to proceed. DICTATING PHYSICIAN: CHRIS MAYS M.D. [id number] PHY#: [id number] ID: [id number] JOB#: [id number] ACCT: [id number] cc:CHRIS MAYS M.D. >
== END 2018-07-16 18:41 | disposition home or self-care (01) ==
LOC: ER 13:47
DX: Z48.03 Encounter for change or removal of drains (principal); E78.00 Pure hypercholesterolemia, unspecified; I10 Essential (primary) hypertension; Z90.49 Acquired absence of other specified parts of digestive tract
CPT/HCPCS: 99283

== ENCOUNTER → 2019-05-28 | Outpatient (CLI) | payer BC ==
[2019-05-28 10:26] LABS: ABSOLUTE EOSINOPHILS # (AUTO) 0.1 10^3/uL (0.0-0.6); ABSOLUTE LYMPHOCYTES (AUTO) 1.7 10^3/uL (0.5-4.7); ABSOLUTE MONOCYTES (AUTO) 0.3 10^3/uL (0.1-1.4); ABSOLUTE NEUT (AUTO) 1.3 10^3/uL (1.7-8.2); BASOPHILS % (AUTO) 1.1 % (0-2); EOSINOPHILS % (AUTO) 3.1 % (0-6); HEMATOCRIT 40.9 % (36.0-47.0); HEMOGLOBIN 13.6 g/dL (12.0-15.5); LYMPHOCYTES % (AUTO) 50.7 % (13-45); MEAN CORPUSCULAR HEMOGLOBIN 27.5 pg (27.0-33.4); MEAN CORPUSCULAR HGB CONC 33.3 g/dL (32.0-36.0); MEAN CORPUSCULAR VOLUME 83 fl (80-97); MONOCYTES % (AUTO) 8.5 % (3-13); PLATELET COUNT 267 10^3/uL (150-450); RED BLOOD COUNT 4.96 10^6/uL (3.72-5.28); RED CELL DISTRIBUTION WIDTH 13.9 % (11.5-14.0); SEGMENTED NEUTROPHILS % (AUTO) 36.6 % (42-78); TOTAL CELLS COUNTED % (AUTO) 100 %; WHITE BLOOD COUNT 3.4 10^3/uL (4.0-10.5)
--- NOTE | 2019-05-28 10:41 | RADIOLOGY REPORT (SQ) ---
EXAM DESCRIPTION: CHEST PA/LATERAL COMPLETED DATE/TIME: 05/28/2019 10:20 am REASON FOR STUDY: PRE-OP COMPARISON: 04/11/2016. EXAM PARAMETERS: NUMBER OF VIEWS: two views TECHNIQUE: Digital Frontal and Lateral radiographic views of the chest acquired. RADIATION DOSE: NA LIMITATIONS: none FINDINGS: LUNGS AND PLEURA: No opacities, masses or pneumothorax. No pleural effusion. MEDIASTINUM AND HILAR STRUCTURES: No masses or contour abnormalities. HEART AND VASCULAR STRUCTURES: Heart normal size. No evidence for failure. BONES: No acute findings. Thoracic scoliosis. HARDWARE: None in the chest. OTHER: No other significant finding. IMPRESSION: NO SIGNIFICANT RADIOGRAPHIC FINDING IN THE CHEST. TECHNICAL DOCUMENTATION: JOB ID: [id number] 2010 [employer]- All Rights Reserved Reading location - IP/workstation name: [email or web address]
[2019-05-28 10:46] LABS: ALBUMIN 4.3 g/dL (3.5-5.0); ALKALINE PHOSPHATASE 83 U/L (38-126); ANION GAP 12 (5-19); ASPARTATE AMINO TRANSFERASE 24 U/L (14-36); BILIRUBIN,DIRECT 0.2 mg/dL (0.0-0.4); BILIRUBIN,TOTAL 0.7 mg/dL (0.2-1.3); BLOOD UREA NITROGEN 14 mg/dL (7-20); CALCIUM 9.2 mg/dL (8.4-10.2); CARBON DIOXIDE 30 mmol/L (22-30); CHLORIDE 101 mmol/L (98-107); GLUCOSE 94 mg/dL (75-110); POTASSIUM 3.2 mmol/L (3.6-5.0)
[2019-05-28 10:47] LABS: INTERNATIONAL RATION (INR) 1.03; PROTHROMBIN TIME 13.5 SEC (11.4-15.4)
[2019-05-28 10:48] LABS: PARTIAL THROMBOPLASTIN TIME 30.4 SEC (23.5-35.8)
--- NOTE | 2019-05-28 17:20 | EKG REPORT ---
SEVERITY:- BORDERLINE ECG - SINUS RHYTHM BORDERLINE T WAVE ABNORMALITIES : Confirmed by: Damon Fox MD 28-May-2019 17:19:48
== END ==
LOC: OD 09:48
PROVIDERS: ATTEND Plastic Surgery
DX: Z01.810 Encounter for preprocedural cardiovascular examination (principal); Z01.812 Encounter for preprocedural laboratory examination; Z01.818 Encounter for other preprocedural examination
CPT/HCPCS: 36415; 71046; 80053; 84703; 85025; 85610; 85730; 86701; 93005; 93010